=== PATIENT | male | born 1935 | race Caucasian/White ===

== ENCOUNTER 2017-04-15 19:37 | Inpatient (IN) | payer MEDICARE, BC ==
[~2017-04-15] VITALS: Ht 172.7 cm; Wt 81.7 kg
[~2017-04-15 19:37] MED LIST: ACIPHEX20 MG ORAL; ADCIRCA20 MG ORAL; ADVAIR 250-501 EACH INH; ALLOPURINOL300 M1 ORAL; AMLODIPINE BESYL5 MG ORAL; BYSTOLIC20 MG ORAL; CALCITRIOL0.25 MCG PO; CEPHALEXIN500 MG ORAL; EDARBI80 MG ORAL; ELIQUIS2.5 MG PO; HYTRIN10 MG PO; LEVEMIR100 UNIT/1 SUBQ; LIQUACEL 100 LI30 ML PO; LUNESTA2 MG ORAL; NEPHROVITE1 TAB ORAL; PACERONE200 MG ORAL; PAROXETINE HC12.5 MG ORAL; PLAVIX75 MG ORAL; PROSCAR5 MG ORAL; PYRIDOSTIGMINE60 MG ORAL; SYNTHROID50 MCG ORAL; TESTONE CI200 MG/1 M IM; TORSEMIDE10 MG PO; TYLENOL COLD M1 EAC3 PO; TYVASO1.74 MG/2. IH
[2017-04-15] MEDS ORDERED: Ipratropium 0.02% Inh Soln 2.5ml UD HHN ONE (19:45)
[2017-04-15] MEDS ORDERED: Albuterol ud Inhalation HHN ONE (19:45)
[2017-04-15 20:28] LABS: MEAN CORPUSCULAR HEMOGLOBIN 36.5 PG (27.0-31.0); MEAN CORPUSCULAR HGB CONC 33.3 G/DL (32.0-36.0); MEAN CORPUSCULAR VOLUME 110 FL (80-99); MEAN PLATELET VOLUME 7.2 FL (6.5-10.1); PLATELET COUNT 147 K/UL (150-450); RED BLOOD COUNT 3.13 M/UL (4.70-6.10); RED CELL DISTRIBUTION WIDTH 16.8 % (11.6-14.8)
[2017-04-15 20:31] LABS: WHITE BLOOD COUNT 27.2 K/UL (4.8-10.8)
[2017-04-15 20:38] LABS: PROTHROMBIN TIME 10.4 SEC (9.30-11.50)
[2017-04-15 20:43] LABS: ALANINE AMINOTRANSFERASE 18 U/L (3-41); ALBUMIN/GLOBULIN RATIO 1.3 (1.0-2.7); ANION GAP 23 (5-15); ASPARTATE AMINO TRANSFERASE 24 U/L (5-40); CALCIUM 9.3 mg/dL (8.6-10.2); CARBON DIOXIDE 22 mEQ/L (20-30); CHLORIDE 91 mEQ/L (98-107); HEMOLYSIS 15; POTASSIUM 3.3 mEQ/L (3.4-4.9); SODIUM 136 mEQ/L (135-145); TOTAL PROTEIN 6.8 g/dL (6.6-8.7); TROPONIN I < 0.30 ng/mL (<=0.30)
[2017-04-15] MEDS ORDERED: Cefepime HCl 1 GM in D5W 55 ML IVPB ONE (20:45)
[2017-04-15] MEDS ORDERED: metroNIDAZOLE 500mg 100 ML IVPB ONE (20:45)
[2017-04-15] MEDS ORDERED: Vancomycin 1 GM in D5W 275 ML IVPB ONE (20:45)
[2017-04-15] MEDS ORDERED: Cefepime 1gm vial ONE (20:45)
[2017-04-15] MEDS ORDERED: NS 250 ML IVPB ONE (20:45)
[2017-04-15 20:46] LABS: REFLEX LACTIC ACID YES OR NO YES
[2017-04-15] MEDS ORDERED: LIQUACEL LIQUID30 ML PO (21:04)
[2017-04-15] MEDS ORDERED: NOVOLOG100 UNIT/3 SUBQ (21:04)
[2017-04-15] MEDS ORDERED: UPTRAVI200 MCG PO (21:04)
[2017-04-15] MEDS ORDERED: DYMISTA NASAL S23 GM NS (21:04)
[2017-04-15] MEDS ORDERED: ATORVASTATIN CA20 MG ORAL (21:04)
[2017-04-15] MEDS ORDERED: ILEVRO1.7 ML OP (21:04)
[2017-04-15] MEDS ORDERED: STIOLTO RESPIMAT4 GM IH (21:04)
[2017-04-15] MEDS ORDERED: IMODIUM MULTI-1 EACH PO (21:04)
[2017-04-15] MEDS ORDERED: TYLENOL EXTRA500 MG ORAL (21:04)
[2017-04-15] MEDS ORDERED: MEGESTROL ACETA40 MG PO (21:04)
[2017-04-15] MEDS ORDERED: AMLODIPINE BES2.5 MG ORAL (21:04)
[2017-04-15] MEDS ORDERED: NEILMED SINUS1 EAC1 NS (21:04)
[2017-04-15] MEDS ORDERED: LUNESTA3 MG ORAL (21:04)
[2017-04-15] MEDS ORDERED: SYNTHROID75 MCG ORAL (21:04)
[2017-04-15] MEDS ORDERED: CALCITRIOL0.25 MCG PO (21:04)
[2017-04-15] MEDS ORDERED: KLOR-CON20 MEQ ORAL (21:04)
[2017-04-15] MEDS ORDERED: MUCINEX DM ER1 EACH PO (21:04)
[2017-04-15] MEDS ORDERED: ALLOPURINOL300 M1 ORAL (21:04)
[2017-04-15] MEDS ORDERED: Vancomycin 1gm inj IVPB ONE (21:42)
[2017-04-15] MEDS ORDERED: Lidocaine 1% MPF 10mg/ml 5ml INJ ONE (21:45)
[2017-04-15 21:53] LABS: ANISOCYTOSIS 1+; BAND NEUTROPHILS % (MANUAL) 9 % (0-8); LYMPHOCYTES % (MANUAL) 6 % (20-45); NEUTROPHILS % (MANUAL) 81 % (45-75); TOTAL CELLS COUNTED 100
[2017-04-15 21:54] LABS: BASOPHILS % (MANUAL) 0 % (0-2); EOSINOPHILS % (MANUAL) 0 % (0-3); HYPOCHROMASIA 1+; MACROCYTES 2+; PLATELET ESTIMATE DECREASED; PLATELET MORPHOLOGY NORMAL; POLYCHROMASIA 1+
[2017-04-15] MEDS ORDERED: DuoNeb 0.5-3(2.5)mg/3ml neb HHN PRN (22:15)
[2017-04-15] MEDS ORDERED: Miralax 17gm pkt ORAL PRN (22:15)
[2017-04-15 22:30] VITALS: BP 112/59
[2017-04-15 22:44] VITALS: BP 80/39
--- NOTE | 2017-04-15 22:46 | Emergency Room Report ---
History of Present Illness General Chief Complaint: Dyspnea/Respdistress Source: Patient, Family Member, EMS Present Illness HPI The patient presents with shortness of breath and hypotension. He has a history of dialysis - peritoneal and hemodialysis. He also has a history of pulmonary hypertension. Paramedics transported the patient here without treatment. His blood pressure is 84 the field. He was recently discharged from [facility] after having a staph infection in his umbilicus. He stopped vancomycin after dialysis one week ago. The patient denies any cough, chest pain. The patient rarely produces urine and denies dysuria. He denies abdominal pain. No rashes. No rigors or chills. says decreased appetite and "going down hill" recently with recent increase in weakness. H/O myasthenia gravis - though states this has been stable. Recent bone marrow at [facility]. Allergies: Coded Allergies: GERTRUDIS INHIBITORS (Unverified Allergy, Unknown, 04/15/17) LEVOFLOXACIN (Unverified Allergy, Unknown, 04/15/17) PENICILLINS (Verified Allergy, Unknown, 04/15/17) Patient History Past Medical History: see triage record Past Surgical History: pacemaker Social History: Denies: smoking Social History Narrative Reviewed Nursing Documentation: PMH: Agreed, PSxH: Agreed Nursing Documentation-PMH Past Medical History: No History, Except For Hx Cardiac Problems: Yes - ESRD , CHF, A-FLUTTER, SPINAL STENOSIS Hx Hypertension: Yes - PULMONARY HYPERTENSION , BPH , CPAP Hx Pacemaker: Yes - dialysis right arm Hx Diabetes: Yes Hx Cancer: No Hx Dialysis: Yes - 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 Hx Neurological Problems: Yes - spinal stenosis Hx Cerebrovascular Accident: Yes - 1996 Hx Seizures: No Review of Systems All Other Systems: negative except mentioned in HPI Physical Exam Vital Signs Date Time Temp Pulse Resp B/P Pulse Ox O2 Delivery O2 Flow Rate FiO2 04/15/17 19:29 96.6 100 24 84/39 98 Nasal Cannula 5.0 04/15/17 19:59 100 Sp02 EP Interpretation: reviewed, abnormal - low as interpreted by me based on FIO2 General Appearance: moderate distress, Chronically Ill Head: normocephalic Eyes: bilateral eye PERRL, bilateral eye normal inspection ENT: moist mucus membranes Neck: supple, no meningismus Respiratory: lungs clear, normal breath sounds, decreased breath sounds, other - pacer and R dialysis cath Cardiovascular #1: no edema, tachycardia Cardiovascular #2: 2+ radial (R), 2+ femoral (R) Gastrointestinal: normal inspection, non tender, no mass, no guarding, no rebound, abnormal bowel sounds - decreased, distended - minimally, other - dialysis catheter, area of umbilical infection without erythema or fluctuance Rectal: heme negative stool Genitourinary: normal inspection Musculoskeletal: back normal, normal range of motion, no calf tenderness Neurologic: alert, oriented x3, sensory intact, motor weakness - diffuse, moves all 4 Psychiatric: depressed affect - occasionally confused Reflexes: 2+ knee (R), 2+ knee (L) Skin: normal inspection, warm/dry Procedures Critical Care Time Critical Care Time Total Critical Care Time: 90 min of bedside evaluation and treatment excludes procedures Procedures: CVP, intubation, EKG Reason for Critical Care: Hypotension, hypoglycemia, sepsis, metabolic acidosis , prevention of end organ injury, severe sepsis, ESRD Course: the patient presented with hypoxia and hypotension. Initial improvement with albuterol and high flow O2. He remained hypotensive and fluid boluses were begun with concern over h/o ESRD. WBC elevated with elevated lactate = severe sepsis. Antibiotics begun. He needed pressors so a central line was started. BP better with levophed, however, due to weakness and confusion, patient was intubated. After intubation, several repeat evaluations were needed to improve sedation. Several discussions with and attempts to contact PMD. Versed drip not available therefore sedated with propofol. Patient admitted to ICU. Consultations: family, critical care MD, nursing, RT, pharmacy Alternative history: EMS, Result: Patient was improved but critical Performed by: Dr. Payan Central Line Central Line : Consent: Verbal Central Line Lumen: triple Maximal Sterile Barrier Tech: yes cap, yes mask, yes sterile gown, yes sterile gloves, yes large sterile sheet, yes hand hygiene, yes chlorhexidine prep Central Line Postion: femoral (R) Anesthesia: Lidocaine cc's of anesthesia: 6 Complications: none Central Line Post Position: sutured, good blood return Attempts: Other - 2 Patient Tolerated: Well Complications: None Progress ultrasound needed. EBL = 12 cc due to blood draw for lactate Intubation Intubation : Consent: Verbal Intubation Method: orotracheal Tube Size (cm): 7.5 Medications: Etomidate Breath Sounds after Intubation: equal - 23 cm Intubation Complications: no complications Post Intubation Xray: Yes Attempts: One Patient Tolerated: Well Complications: None Medical Decision Making Diagnostic Impression: Primary Impression: Severe sepsis Additional Impressions: ESRD (end stage renal disease) on dialysis Hypoxia H/O pulmonary hypertension ER Course Dialysis patient presents with dyspnea and hypotension. DDx: sepsis, chf, AMI, pneumonia, pulmonary hypertension, PE amongst others. Patient needs emergent evaluation and treatment with high flow O2, guarded fluid resuscitation. EKG, CXR, labs with BC and lactate ordered. Initially BIPAP ordered, but patient not tolerate mask. Albuterol ordered. Initial labs with leukocytosis and elevated lactate. Evidence of renal failure (h/o same). .EKG a fib BBB. CXR with R effusion, no evidence of fluid overload. Patient appears to be septic. Antibiotics are begun. Also fluids are initiated as he still is hypertensive. Consider source - SBP, UTI, pneumonia, bacteremia from line. Abd wound not appear source. His blood pressure remains low and after getting fluid bolus a. A central line is indicated. Discussed with and patient. CVP was begun. Repeat lactate drawn. The patient was started on Levophed. BP improved on levophed. Still with variable consciousness. Discussed intubation with patient and . (H/O myasthenia gravis) Intubated. Versed several doses given. Versed drip not available. Propofol drip started and bolus given by me. BP holding. Titrating propofol. Patient admitted ICU Dr. Craven. Laboratory Tests Test 04/15/17 19:33 04/15/17 19:47 04/15/17 22:33 Arterial Blood pH 7.456 (7.350-7.450) Arterial Blood Partial Pressure CO2 27.5 mmHg (35.0-45.0) L Arterial Blood Partial Pressure O2 181.5 mmHg (75.0-100.0) H Arterial Blood HCO3 18.9 mmol/L (22.0-26.0) L Arterial Blood Oxygen Saturation 98.7 % (92.0-98.0) H Arterial Blood Base Excess -4.1 Mike Test Positive White Blood Count 27.2 K/UL (4.8-10.8) *H Red Blood Count 3.13 M/UL (4.70-6.10) L Hemoglobin 11.4 G/DL (14.2-18.0) L Hematocrit 34.3 % (42.0-52.0) L Mean Corpuscular Volume 110 FL (80-99) H Mean Corpuscular Hemoglobin 36.5 PG (27.0-31.0) H Mean Corpuscular Hemoglobin Concent 33.3 G/DL (32.0-36.0) Red Cell Distribution Width 16.8 % (11.6-14.8) H Platelet Count 147 K/UL (150-450) L Mean Platelet Volume 7.2 FL (6.5-10.1) Neutrophils (%) (Auto) % (45.0-75.0) Lymphocytes (%) (Auto) % (20.0-45.0) Monocytes (%) (Auto) % (1.0-10.0) Eosinophils (%) (Auto) % (0.0-3.0) Basophils (%) (Auto) % (0.0-2.0) Differential Total Cells Counted 100 Neutrophils % (Manual) 81 % (45-75) H Lymphocytes % (Manual) 6 % (20-45) L Monocytes % (Manual) 4 % (1-10) Eosinophils % (Manual) 0 % (0-3) Basophils % (Manual) 0 % (0-2) Band Neutrophils 9 % (0-8) H Platelet Estimate Decreased L Platelet Morphology Normal Polychromasia 1+ Hypochromasia 1+ Anisocytosis 1+ Macrocytosis 2+ Prothrombin Time 10.4 SEC (9.30-11.50) Prothrombin Time INR 1.0 (0.9-1.1) PTT 24 SEC (23-33) Sodium Level 136 mEQ/L (135-145) Potassium Level 3.3 mEQ/L (3.4-4.9) L Chloride Level 91 mEQ/L (98-107) L Carbon Dioxide Level 22 mEQ/L (20-30) Anion Gap 23 (5-15) H Blood Urea Nitrogen 34 mg/dL (7-23) H Creatinine 7.0 mg/dL (0.7-1.2) H Estimate Glomerular Filtration Rate mL/min (>60) Glucose Level 249 mg/dL (74-106) H Lactic Acid Level 4.00 mmol/L (0.66-2.22) H 2.30 mmol/L (0.66-2.22) H Calcium Level 9.3 mg/dL (8.6-10.2) Total Bilirubin 0.4 mg/dL (0.0-1.2) Aspartate Amino Transferase (AST) 24 U/L (5-40) Alanine Aminotransferase (ALT) 18 U/L (3-41) Alkaline Phosphatase 202 U/L (40-129) H Total Creatine Kinase 60 U/L (38-174) Troponin I < 0.30 ng/mL (<=0.30) Pro-B-Type Natriuretic Peptide 86790 pg/mL (0-450) H Total Protein 6.8 g/dL (6.6-8.7) Albumin 3.9 g/dL (3.5-5.2) Globulin 2.9 g/dL Albumin/Globulin Ratio 1.3 (1.0-2.7) Triglycerides Level 169 mg/dL (< 150) H EKG Diagnostic Results Rate: tachycardiac Rhythm: other - a fib ST Segments: no acute changes - RBBB Rhythm Strip Diag. Results EP Interpretation: yes Rhythm: no PVC's, no ectopy, other - a fib Chest X-Ray Diagnostic Results Chest X-Ray Diagnostic Results #1: Chest X-Ray Ordered: Yes # of Views/Limited/Complete: 1 View Indication: Shortness of Breath EP Interpretation: Yes Interpretation: no consolidation, no pneumothorax, other - R effusion, cardiomegally Impression: Other Interpreting ER Provider: Electronically signed by Tristan Payan MD Chest X-Ray Diagnostic Results #2: Chest X-Ray Ordered: Yes # of Views/Limited/Complete: 1 View Indication: Other EP Interpretation: Yes Interpretation: no pneumothorax, other - ET slightly high (acceptable), no infiltrate Impression: Other Interpreting ER Provider: Signed Tristan Payan MD Last Vital Signs Date Time Temp Pulse Resp B/P Pulse Ox O2 Delivery O2 Flow Rate FiO2 04/16/17 02:03 105/51 04/16/17 02:00 106 20 98 Mechanical Ventilator 30 04/16/17 01:17 96.6 3.0 Status: improved Disposition: ADMITTED INPATIENT Condition: Critical Referrals: NON PHYSICIAN (PCP) Tristan Payan M.D. Apr 15, 2017 22:46
[2017-04-15] MEDS ORDERED: Levophed 4mg/4mL Inj IV ONE (22:48)
[2017-04-15] MEDS ORDERED: Etomidate 40mg/20ml Inj IV ONE (23:00)
[2017-04-15] MEDS ORDERED: Midazolam 2mg/2ml Inj IVP ONE ×3 (23:00→23:30)
[2017-04-15] MEDS ORDERED: Midazolam for drip 50 MG in D5W 90 ML IV SCH (23:00)
[2017-04-15] MEDS ORDERED: Vancomycin 1 GM in D5W 275 ML IV SCH (23:45)
[2017-04-16] VITALS (58 sets, daily range): BP systolic 85–139; BP diastolic 37–74
[2017-04-16] MEDS ORDERED: Midazolam 5mg/5ml 50 MG in D5W 50 ML IV SCH (00:10)
[2017-04-16] MEDS ORDERED: Vancomycin 500mg/D5W 110ml IVPB ONE ×2 (00:15)
[2017-04-16] MEDS ORDERED: Amikacin 500mg/2mL Inj ONE ×2 (00:37→01:48)
[2017-04-16 00:49] LABS: ABG ALLEN TEST POSITIVE; ABG BASE EXCESS -4.1; ABG PCO2 27.5 mmHg (35.0-45.0)
[2017-04-16] MEDS ORDERED: Amikacin 700 MG in NS 110 ML IV ONE (02:00)
[2017-04-16 05:35] LABS: MEAN CORPUSCULAR HEMOGLOBIN 35.6 PG (27.0-31.0); MEAN CORPUSCULAR HGB CONC 33.2 G/DL (32.0-36.0); MEAN CORPUSCULAR VOLUME 107 FL (80-99); MEAN PLATELET VOLUME 6.8 FL (6.5-10.1); PLATELET COUNT 128 K/UL (150-450); RED BLOOD COUNT 2.48 M/UL (4.70-6.10); RED CELL DISTRIBUTION WIDTH 16.3 % (11.6-14.8)
[2017-04-16 05:55] LABS: ALANINE AMINOTRANSFERASE 13 U/L (3-41); ALBUMIN/GLOBULIN RATIO 1.4 (1.0-2.7); ANION GAP 16 (5-15); ASPARTATE AMINO TRANSFERASE 17 U/L (5-40); BILIRUBIN,DIRECT 0.2 mg/dL (0.1-0.3); CALCIUM 8.2 mg/dL (8.6-10.2); CARBON DIOXIDE 22 mEQ/L (20-30); CHLORIDE 92 mEQ/L (98-107); CREATININE 7.3 mg/dL (0.7-1.2); HEMOLYSIS 3; POTASSIUM 3.1 mEQ/L (3.4-4.9); SODIUM 130 mEQ/L (135-145); TOTAL PROTEIN 5.1 g/dL (6.6-8.7)
[2017-04-16] MEDS: Aztreonam Inj 0.25 GM in D5W 55 ML IVPB SCH ×2 (05:59→14:47)
[2017-04-16] MEDS ORDERED: Amikacin Rx to dose MISC PRN (06:00)
[2017-04-16] MEDS ORDERED: Aztreonam Inj 1 GM in NS 50 ML IVPB SCH (06:00)
[2017-04-16 06:10] LABS: WHITE BLOOD COUNT 27.4 K/UL (4.8-10.8)
[2017-04-16 06:13] LABS: REFLEX LACTIC ACID YES OR NO YES
[2017-04-16] MEDS: Morphine Sulfate 4mg/ml Inj IVP PRN ×2 (06:46→19:44)
[2017-04-16] MEDS ORDERED: Eliquis 2.5mg tablet ORAL SCH (09:00)
[2017-04-16] MEDS ORDERED: Amiodarone 200mg tab ORAL SCH (09:00)
--- NOTE | 2017-04-16 09:09 | History and Physical ---
History of Present Illness General Date patient seen: Apr 16, 2017 Reason for Hospitalization: Dyspnea/Respdistress Present Illness HPI -82 year old male with a history of dialysis - peritoneal and hemodialysis , myasthenia gravis, recent hospitalization at [facility] for Sepsis, presented to ER by paramedics with shortness of breath and hypotension. His blood pressure is 84 the field. The patient denies any cough, chest pain. The patient rarely produces urine and denies dysuria. He denies abdominal pain. No rashes. No rigors or chills. says that he hs decreased appetite and "going down hill" recently with recent increase in weakness. Pt was in respiratory failure in ER and needed to be intubated. Currently pt is awake on the ventilator and looks comfortable. He is on levophed drip. Allergies: Coded Allergies: GERTRUDIS INHIBITORS (Unverified Allergy, Unknown, 04/15/17) LEVOFLOXACIN (Unverified Allergy, Unknown, 04/15/17) PENICILLINS (Verified Allergy, Unknown, 04/15/17) Medication History Scheduled Acetaminophen* (Tylenol Extra Strength*), 500 MG ORAL QHS, (Reported) Allopurinol* (Allopurinol*), 300 MG ORAL DAILY, (Reported) Allopurinol* (Allopurinol*), 300 MG ORAL DAILY, (Reported) Amino Acids/Protein Hydrolys (Liquacel 100 Liquid Packet), 30 ML PO DAILY, ( Reported) Amiodarone Hcl* (Pacerone*), 200 MG ORAL EVERY 12 HOURS, (Reported) Amlodipine Besylate* (Amlodipine Besylate*), 5 MG ORAL DAILY, (Reported) Amlodipine Besylate* (Amlodipine Besylate*), 2.5 MG ORAL DAILY, (Reported) Atorvastatin Calcium* (Atorvastatin Calcium*), 10 MG ORAL BEDTIME, (Reported) Azilsartan Medoxomil (Edarbi), 80 MG ORAL DAILY, (Reported) Calcitriol (Calcitriol), 0.25 MCG PO DAILY, (Reported) Cephalexin* (Keflex*), 500 MG ORAL EVERY 6 HOURS Clopidogrel Bisulfate* (Plavix*), 75 MG ORAL DAILY, (Reported) Finasteride* (Proscar*), 5 MG ORAL DAILY, (Reported) Fluticasone/Salmeterol (Advair 250-50 Diskus), 2 PUFF INH EVERY 12 HOURS, ( Reported) Insulin Detemir (Levemir), 0 SUBQ BEDTIME, (Reported) Levothyroxine Sodium (Synthroid), 50 MCG ORAL DAILY, (Reported) Levothyroxine Sodium* (Synthroid*), 50 MCG ORAL DAILY, (Reported) Loperamide Hcl/Simethicone (Imodium Multi-Symptom Rel Cplt), 1 EACH PO PRN, ( Reported) Nebivolol Hcl (Bystolic), 20 MG ORAL DAILY, (Reported) Paroxetine Hcl* (Paroxetine Hcl*), 10 MG ORAL DAILY, (Reported) Potassium Chloride (Klor-Con), 20 MEQ ORAL DAILY, (Reported) Pyridostigmine [place]* (Mestinon*), 30 MG ORAL BID, (Reported) Rabeprazole Sodium (Aciphex), 20 MG ORAL DAILY, (Reported) Tadalafil (Adcirca), 20 MG ORAL PRN, (Reported) Tadalafil (Adcirca), 20 MG ORAL TWICE A DAY, (Reported) Terazosin HCl (Terazosin HCl), 10 MG PO QHS, (Reported) Torsemide* (Demadex*), 50 MG PO DAILY, (Reported) Treprostinil (Tyvaso), 1.74 MG IH TID, (Reported) Vitamin B Cmplx/Vit C/Folic AC (Nephro-Calli Tablet), 1 TAB ORAL DAILY, (Reported ) Scheduled PRN Eszopiclone (Lunesta), 2 MG ORAL BEDTIME PRN for Insomnia, (Reported) Eszopiclone (Lunesta), 3 MG ORAL BEDTIME PRN for Insomnia, (Reported) Miscellaneous Medications Amino AC/Protein Hydr/Whey Pro (Liquacel Liquid Protein Packet), 30 ML PO, ( Reported) Apixaban (Eliquis), 2.5 MG PO, (Reported) Azelastine/Fluticasone (Dymista Nasal [place]), Unknown Dose NS, (Reported) Calcitriol (Calcitriol), 0.25 MCG PO, (Reported) D-Methorphan/Pe/Acetaminophen (Tylenol Cold Multi-Symp Caplet), 1 EACH PO, ( Reported) Guaifenesin/Dextromethorphan (Mucinex Dm Er 1,200-60 Mg Tab), 1 EACH PO, ( Reported) Insulin Aspart* (Novolog*), 0 SUBQ, (Reported) Megestrol Acetate (Megestrol Acetate), Unknown Dose PO, (Reported) Nepafenac (Ilevro), 1.7 ML OP, (Reported) Selexipag (Uptravi), 200 MCG PO, (Reported) Sodium Chloride/Sodium Bicarb (Neilmed Sinus Rinse Kit Refill), 1 EACH NS, ( Reported) Testosterone Cypionate (Testone Cik), 200 MG IM, (Reported) Tiotropium Br/Olodaterol HCl (Stiolto Respimat Inhal [place]), 4 GM IH, (Reported) Patient History Healthcare decision maker aristides wilkinson - Resuscitation status Full Code Advanced Directive on File No Past Medical/Surgical History Past Medical/Surgical History: (1) Myasthenia gravis (2) ESRD (end stage renal disease) on dialysis (3) H/O pulmonary hypertension Review of Systems All Other Systems: negative except mentioned in HPI Physical Exam General Appearance: WD/WN Lines, tubes and drains: dialysis access Neck: non-tender, normal alignment Respiratory/Chest: chest wall non-tender, lungs clear Cardiovascular/Chest: normal peripheral pulses, normal rate Abdomen: normal bowel sounds, non tender Genitourinary/Rectal: normal genital exam, normal rectal exam Extremities: normal range of motion, non-tender Last 24 Hour Vital Signs Date Time Temp Pulse Resp B/P Pulse Ox O2 Delivery O2 Flow Rate FiO2 04/16/17 07:01 85 23 30 04/16/17 07:00 86 21 120/49 100 Mechanical Ventilator 30 04/16/17 07:00 120/49 04/16/17 06:45 87 22 125/68 99 Mechanical Ventilator 30 04/16/17 06:30 93 18 114/53 99 Mechanical Ventilator 04/16/17 06:15 89 18 99/50 99 Mechanical Ventilator 04/16/17 06:00 86 19 101/43 100 Mechanical Ventilator 04/16/17 05:59 99/50 04/16/17 05:45 90 19 113/47 100 Mechanical Ventilator 04/16/17 05:32 85 19 30 04/16/17 05:30 88 20 99/46 100 Mechanical Ventilator 04/16/17 05:15 90 19 111/47 100 Mechanical Ventilator 30 04/16/17 05:00 91 21 89/42 99 Mechanical Ventilator 30 04/16/17 05:00 111/51 04/16/17 04:45 95 21 111/51 99 Mechanical Ventilator 30 04/16/17 04:30 94 19 111/51 98 Mechanical Ventilator 30 04/16/17 04:15 94 19 109/51 98 Mechanical Ventilator 30 04/16/17 04:00 30.0 04/16/17 04:00 109/48 04/16/17 04:00 96 04/16/17 04:00 99.3 96 19 109/48 98 Mechanical Ventilator 30 04/16/17 03:45 98 20 111/41 99 Mechanical Ventilator 30 04/16/17 03:37 101 25 30 04/16/17 03:30 101 21 112/50 99 Mechanical Ventilator 30 04/16/17 03:15 103 19 112/50 99 Mechanical Ventilator 30 04/16/17 03:00 104 21 109/64 97 Mechanical Ventilator 30 04/16/17 03:00 109/64 04/16/17 02:45 103 19 108/47 98 Mechanical Ventilator 30 04/16/17 02:30 106 20 106/46 99 Mechanical Ventilator 30 04/16/17 02:15 106 20 108/45 99 Mechanical Ventilator 30 04/16/17 02:03 105/51 04/16/17 02:00 106 20 109/41 98 Mechanical Ventilator 30 04/16/17 01:45 106 22 113/62 98 Mechanical Ventilator 30 04/16/17 01:30 108 22 86/38 98 Mechanical Ventilator 30 04/16/17 01:18 107 04/16/17 01:17 96.6 114 16 109/53 99 Nasal Cannula 3.0 30 04/16/17 01:15 106 22 86/37 98 Mechanical Ventilator 30 04/16/17 01:01 30 04/16/17 01:00 30.0 04/16/17 01:00 111/48 04/16/17 01:00 99.0 106 22 111/48 98 Mechanical Ventilator 30 04/16/17 00:44 16 04/16/17 00:36 118 32 60 04/16/17 00:15 96.6 114 16 109/53 99 Nasal Cannula 3.0 60 04/16/17 00:10 24 04/16/17 00:00 25 04/15/17 23:54 25 04/15/17 23:24 129 25 60 04/15/17 23:05 80/39 04/15/17 22:44 96.6 105 18 80/39 99 Nasal Cannula 3.0 100 04/15/17 22:30 96.6 25 18 112/59 99 Nasal Cannula 3.0 100 04/15/17 20:10 89 18 99 Nasal Cannula 3.0 04/15/17 19:59 85 18 97 Non-Rebreather 100 04/15/17 19:51 85 18 Non-Rebreather 04/15/17 19:45 100 24 Nasal Cannula 5.0 04/15/17 19:29 96.6 100 24 84/39 98 Nasal Cannula 5.0 Intake and Output 04/15/17 04/16/17 19:00 07:00 Intake Total 242.5 ml Output Total 0 ml Balance 242.5 ml Intake Oral 0 ml IV Total 242.5 ml Output Urine Total 0 ml Laboratory Tests Test 04/15/17 19:33 04/15/17 19:47 04/15/17 22:33 04/16/17 05:10 Arterial Blood pH 7.456 (7.350-7.450) Arterial Blood Partial Pressure CO2 27.5 mmHg (35.0-45.0) L Arterial Blood Partial Pressure O2 181.5 mmHg (75.0-100.0) H Arterial Blood HCO3 18.9 mmol/L (22.0-26.0) L Arterial Blood Oxygen Saturation 98.7 % (92.0-98.0) H Arterial Blood Base Excess -4.1 Mike Test Positive White Blood Count 27.2 K/UL (4.8-10.8) *H 27.4 K/UL (4.8-10.8) *H Red Blood Count 3.13 M/UL (4.70-6.10) L 2.48 M/UL (4.70-6.10) L Hemoglobin 11.4 G/DL (14.2-18.0) L 8.8 G/DL (14.2-18.0) L Hematocrit 34.3 % (42.0-52.0) L 26.6 % (42.0-52.0) L Mean Corpuscular Volume 110 FL (80-99) H 107 FL (80-99) H Mean Corpuscular Hemoglobin 36.5 PG (27.0-31.0) H 35.6 PG (27.0-31.0) H Mean Corpuscular Hemoglobin Concent 33.3 G/DL (32.0-36.0) 33.2 G/DL (32.0-36.0) Red Cell Distribution Width 16.8 % (11.6-14.8) H 16.3 % (11.6-14.8) H Platelet Count 147 K/UL (150-450) L 128 K/UL (150-450) L Mean Platelet Volume 7.2 FL (6.5-10.1) 6.8 FL (6.5-10.1) Neutrophils (%) (Auto) % (45.0-75.0) % (45.0-75.0) Lymphocytes (%) (Auto) % (20.0-45.0) % (20.0-45.0) Monocytes (%) (Auto) % (1.0-10.0) % (1.0-10.0) Eosinophils (%) (Auto) % (0.0-3.0) % (0.0-3.0) Basophils (%) (Auto) % (0.0-2.0) % (0.0-2.0) Differential Total Cells Counted 100 Neutrophils % (Manual) 81 % (45-75) H Pending Lymphocytes % (Manual) 6 % (20-45) L Pending Monocytes % (Manual) 4 % (1-10) Eosinophils % (Manual) 0 % (0-3) Basophils % (Manual) 0 % (0-2) Band Neutrophils 9 % (0-8) H Platelet Estimate Decreased L Pending Platelet Morphology Normal Pending Polychromasia 1+ Hypochromasia 1+ Anisocytosis 1+ Macrocytosis 2+ Prothrombin Time 10.4 SEC (9.30-11.50) Prothromb Time International Ratio 1.0 (0.9-1.1) Activated Partial Thromboplast Time 24 SEC (23-33) Sodium Level 136 mEQ/L (135-145) 130 mEQ/L (135-145) L Potassium Level 3.3 mEQ/L (3.4-4.9) L 3.1 mEQ/L (3.4-4.9) L Chloride Level 91 mEQ/L (98-107) L 92 mEQ/L (98-107) L Carbon Dioxide Level 22 mEQ/L (20-30) 22 mEQ/L (20-30) Anion Gap 23 (5-15) H 16 (5-15) H Blood Urea Nitrogen 34 mg/dL (7-23) H 38 mg/dL (7-23) H Creatinine 7.0 mg/dL (0.7-1.2) H 7.3 mg/dL (0.7-1.2) H Estimat Glomerular Filtration Rate mL/min (>60) mL/min (>60) Glucose Level 249 mg/dL (74-106) H 326 mg/dL (74-106) H Lactic Acid Level 4.00 mmol/L (0.66-2.22) H 2.30 mmol/L (0.66-2.22) H 2.00 mmol/L (0.66-2.22) Calcium Level 9.3 mg/dL (8.6-10.2) 8.2 mg/dL (8.6-10.2) L Total Bilirubin 0.4 mg/dL (0.0-1.2) 0.3 mg/dL (0.0-1.2) Aspartate Amino Transf (AST/SGOT) 24 U/L (5-40) 17 U/L (5-40) Alanine Aminotransferase (ALT/SGPT) 18 U/L (3-41) 13 U/L (3-41) Alkaline Phosphatase 202 U/L (40-129) H 138 U/L (40-129) H Total Creatine Kinase 60 U/L (38-174) Troponin I < 0.30 ng/mL (<=0.30) Pro-B-Type Natriuretic Peptide 30223 pg/mL (0-450) H Total Protein 6.8 g/dL (6.6-8.7) 5.1 g/dL (6.6-8.7) L Albumin 3.9 g/dL (3.5-5.2) 3.0 g/dL (3.5-5.2) L Globulin 2.9 g/dL 2.1 g/dL Albumin/Globulin Ratio 1.3 (1.0-2.7) 1.4 (1.0-2.7) Triglycerides Level 169 mg/dL (< 150) H Direct Bilirubin 0.2 mg/dL (0.1-0.3) Height (Feet): 5 Height (Inches): 8.00 Weight (Pounds): 139 Medications Current Medications Medications (Trade) Dose Ordered Sig/Rossana Route PRN Reason Start Time Stop Time Status Last Admin Dose Admin Acetaminophen (Tylenol) 650 mg Q4H PRN ORAL fever 04/15/17 22:15 05/15/17 22:14 Albuterol/ Ipratropium (DuoNeb 0.5-3(2.5)mg/3ml) 3 ml EVERY 4 HOURS PRN HHN Shortness of Breath 04/15/17 22:15 04/20/17 22:14 Allopurinol (Zyloprim) 100 mg DAILY ORAL 04/16/17 09:00 05/16/17 08:59 Amikacin Protocol (Amikacin pharmacy to dose) 1 ea DAILY PRN MISC PHARM 04/16/17 06:00 05/16/17 05:59 Amiodarone HCl (Cordarone) 200 mg EVERY 12 HOURS ORAL 04/16/17 09:00 05/16/17 08:59 Apixaban (Eliquis) 2.5 mg EVERY 12 HOURS ORAL 04/16/17 09:00 05/16/17 08:59 Aztreonam/Dextrose (Azactam/D5W) 55 ml @ 110 mls/hr Q8HR IVPB 04/16/17 06:00 04/23/17 05:59 04/16/17 05:59 Dextrose (Dextrose 50%) STAT PRN IV Hypoglycemia 04/16/17 07:35 05/16/17 07:34 Insulin Aspart (NovoLOG) EVERY 6 HOURS SUBQ 04/16/17 12:00 05/16/17 11:59 Levothyroxine Sodium (Synthroid) 50 mcg DAILY@0630 ORAL 04/16/17 06:30 05/16/17 06:29 04/16/17 05:59 Morphine Sulfate (Morphine Sulfate) 4 mg EVERY 4 HOURS PRN IVP Severe Pain (Pain Scale 7-10) 04/15/17 22:15 04/22/17 22:14 04/16/17 06:46 Norepinephrine Bitartrate/ Dextrose (Levophed/D5W) 254 ml @ 0 mls/hr Q24H IV 04/15/17 22:15 05/15/17 22:14 04/15/17 23:05 Ondansetron HCl 4 mg 4 mg Q6H PRN IVP Nausea & Vomiting 04/15/17 22:15 05/15/17 22:14 Polyethylene Glycol (Miralax) 17 gm DAILYPRN PRN ORAL Constipation 04/15/17 22:15 05/15/17 22:14 Vancomycin HCl 1 ea 1 ea DAILY MISC 04/16/17 09:00 05/16/17 08:59 Assessment/Plan Problem List: (1) Acute respiratory failure ICD Codes: J96.00 - Acute respiratory failure, unspecified whether with hypoxia or hypercapnia SNOMED: 49947031 (2) Septic shock ICD Codes: A41.9 - Sepsis, unspecified organism; R65.21 - Severe sepsis with septic shock SNOMED: 73578228 (3) ESRD (end stage renal disease) on dialysis ICD Codes: N18.6 - End stage renal disease; Z99.2 - Dependence on renal dialysis SNOMED: 223517189, 47748265 (4) H/O pulmonary hypertension ICD Codes: Z86.79 - Personal history of other diseases of the circulatory system SNOMED: 086262216 (5) Myasthenia gravis ICD Codes: G70.00 - Myasthenia gravis without (acute) exacerbation SNOMED: 27915183 Respiratory: monitor respiratory rate, adjust FIO2, CXR Cardiac: continue pressors - on levophed, continue to monitor HR/BP Renal: F/U I&O, keep IV fluid Infectious Disease: check cultures, continue antibiotics Gastrointestinal: hold feedings Endocrine: monitor blood sugar Hematologic: monitor H/H, transfuse if hgb<8.5 Neurologic: PRN Ativan, PRN Morphine, keep patient comfortable Affect: PRN ativan Notes Reviewed: user experience researcher, cardio Discussed with: nurses, consultants, case technician QUYNH CARDONA Apr 16, 2017 09:09
[2017-04-16] MEDS: Allopurinol 100mg Tab ORAL SCH (09:14)
[2017-04-16 09:25] LABS: ABG ALLEN TEST POSITIVE; ABG BASE EXCESS -3.3
[2017-04-16 09:47] LABS: BAND NEUTROPHILS % (MANUAL) 2 % (0-8); LYMPHOCYTES % (MANUAL) 6 % (20-45); NEUTROPHILS % (MANUAL) 87 % (45-75); NUCLEATED RED BLOOD CELLS 1 /100 WBC; TOTAL CELLS COUNTED 100
[2017-04-16 09:48] LABS: BASOPHILS % (MANUAL) 0 % (0-2); EOSINOPHILS % (MANUAL) 0 % (0-3); MACROCYTES 1+; MICROCYTES 1+; PLATELET ESTIMATE DECREASED; PLATELET MORPHOLOGY NORMAL
[2017-04-16 09:49] LABS: ANISOCYTOSIS 2+; HYPOCHROMASIA 1+
[2017-04-16] MEDS ORDERED: Tubing IV Secondary IV ONE (10:26)
[2017-04-16] MEDS ORDERED: NS 275ml ONE (10:26)
--- NOTE | 2017-04-16 10:35 | Cardiology Progress Note ---
Assessment/Plan Assessment/Plan septic shock met acidosis hypotension paf his opf ppi MG hx S/p I and D infra umbilcal superficial MSSA abscess. CHF, PHT. 90's rvd an hypokinesis ESRD Anemia. MDS? Illness of past 2 to 3 months may NOT be under dialysis, rather smoldering abscess. full note dicated [id number] Objective Last 24 Hour Vital Signs Date Time Temp Pulse Resp B/P Pulse Ox O2 Delivery O2 Flow Rate FiO2 04/16/17 09:01 90 16 30 04/16/17 08:00 30.0 04/16/17 08:00 88 04/16/17 07:01 85 23 30 04/16/17 07:00 86 21 120/49 100 Mechanical Ventilator 30 04/16/17 07:00 120/49 04/16/17 06:45 87 22 125/68 99 Mechanical Ventilator 30 04/16/17 06:30 93 18 114/53 99 Mechanical Ventilator 30 04/16/17 06:15 89 18 99/50 99 Mechanical Ventilator 30 04/16/17 06:00 86 19 101/43 100 Mechanical Ventilator 30 04/16/17 05:59 99/50 04/16/17 05:45 90 19 113/47 100 Mechanical Ventilator 30 04/16/17 05:32 85 19 30 04/16/17 05:30 88 20 99/46 100 Mechanical Ventilator 30 04/16/17 05:15 90 19 111/47 100 Mechanical Ventilator 30 04/16/17 05:00 91 21 89/42 99 Mechanical Ventilator 30 04/16/17 05:00 111/51 04/16/17 04:45 95 21 111/51 99 Mechanical Ventilator 30 04/16/17 04:30 94 19 111/51 98 Mechanical Ventilator 30 04/16/17 04:15 94 19 109/51 98 Mechanical Ventilator 30 04/16/17 04:00 30.0 04/16/17 04:00 109/48 04/16/17 04:00 96 04/16/17 04:00 99.3 96 19 109/48 98 Mechanical Ventilator 30 04/16/17 03:45 98 20 111/41 99 Mechanical Ventilator 30 04/16/17 03:37 101 25 30 04/16/17 03:30 101 21 112/50 99 Mechanical Ventilator 30 04/16/17 03:15 103 19 112/50 99 Mechanical Ventilator 30 04/16/17 03:00 104 21 109/64 97 Mechanical Ventilator 30 04/16/17 03:00 109/64 04/16/17 02:45 103 19 108/47 98 Mechanical Ventilator 30 04/16/17 02:30 106 20 106/46 99 Mechanical Ventilator 30 04/16/17 02:15 106 20 108/45 99 Mechanical Ventilator 30 04/16/17 02:03 105/51 04/16/17 02:00 106 20 109/41 98 Mechanical Ventilator 30 04/16/17 01:45 106 22 113/62 98 Mechanical Ventilator 30 04/16/17 01:30 108 22 86/38 98 Mechanical Ventilator 30 04/16/17 01:18 107 04/16/17 01:17 96.6 114 16 109/53 99 Nasal Cannula 3.0 30 04/16/17 01:15 106 22 86/37 98 Mechanical Ventilator 30 04/16/17 01:01 30 04/16/17 01:00 30.0 04/16/17 01:00 111/48 04/16/17 01:00 99.0 106 22 111/48 98 Mechanical Ventilator 30 04/16/17 00:44 16 04/16/17 00:36 118 32 60 04/16/17 00:15 96.6 114 16 109/53 99 Nasal Cannula 3.0 60 04/16/17 00:10 24 04/16/17 00:00 25 04/15/17 23:54 25 04/15/17 23:24 129 25 60 04/15/17 23:05 80/39 04/15/17 22:44 96.6 105 18 80/39 99 Nasal Cannula 3.0 100 04/15/17 22:30 96.6 25 18 112/59 99 Nasal Cannula 3.0 100 04/15/17 20:10 89 18 99 Nasal Cannula 3.0 04/15/17 19:59 85 18 97 Non-Rebreather 100 04/15/17 19:51 85 18 Non-Rebreather 04/15/17 19:45 100 24 Nasal Cannula 5.0 04/15/17 19:29 96.6 100 24 84/39 98 Nasal Cannula 5.0 Intake and Output 04/15/17 04/16/17 19:00 07:00 Intake Total 242.5 ml Output Total 0 ml Balance 242.5 ml Intake Oral 0 ml IV Total 242.5 ml Output Urine Total 0 ml Laboratory Tests Test 04/15/17 19:33 04/15/17 19:47 04/15/17 22:33 04/16/17 05:10 Arterial Blood pH 7.456 (7.350-7.450) Arterial Blood Partial Pressure CO2 27.5 mmHg (35.0-45.0) L Arterial Blood Partial Pressure O2 181.5 mmHg (75.0-100.0) H Arterial Blood HCO3 18.9 mmol/L (22.0-26.0) L Arterial Blood Oxygen Saturation 98.7 % (92.0-98.0) H Arterial Blood Base Excess -4.1 Mike Test Positive White Blood Count 27.2 K/UL (4.8-10.8) *H 27.4 K/UL (4.8-10.8) *H Red Blood Count 3.13 M/UL (4.70-6.10) L 2.48 M/UL (4.70-6.10) L Hemoglobin 11.4 G/DL (14.2-18.0) L 8.8 G/DL (14.2-18.0) L Hematocrit 34.3 % (42.0-52.0) L 26.6 % (42.0-52.0) L Mean Corpuscular Volume 110 FL (80-99) H 107 FL (80-99) H Mean Corpuscular Hemoglobin 36.5 PG (27.0-31.0) H 35.6 PG (27.0-31.0) H Mean Corpuscular Hemoglobin Concent 33.3 G/DL (32.0-36.0) 33.2 G/DL (32.0-36.0) Red Cell Distribution Width 16.8 % (11.6-14.8) H 16.3 % (11.6-14.8) H Platelet Count 147 K/UL (150-450) L 128 K/UL (150-450) L Mean Platelet Volume 7.2 FL (6.5-10.1) 6.8 FL (6.5-10.1) Neutrophils (%) (Auto) % (45.0-75.0) % (45.0-75.0) Lymphocytes (%) (Auto) % (20.0-45.0) % (20.0-45.0) Monocytes (%) (Auto) % (1.0-10.0) % (1.0-10.0) Eosinophils (%) (Auto) % (0.0-3.0) % (0.0-3.0) Basophils (%) (Auto) % (0.0-2.0) % (0.0-2.0) Differential Total Cells Counted 100 100 Neutrophils % (Manual) 81 % (45-75) H 87 % (45-75) H Lymphocytes % (Manual) 6 % (20-45) L 6 % (20-45) L Monocytes % (Manual) 4 % (1-10) 5 % (1-10) Eosinophils % (Manual) 0 % (0-3) 0 % (0-3) Basophils % (Manual) 0 % (0-2) 0 % (0-2) Band Neutrophils 9 % (0-8) H 2 % (0-8) Platelet Estimate Decreased L Decreased L Platelet Morphology Normal Normal Polychromasia 1+ Hypochromasia 1+ 1+ Anisocytosis 1+ 2+ Macrocytosis 2+ 1+ Prothrombin Time 10.4 SEC (9.30-11.50) Prothromb Time International Ratio 1.0 (0.9-1.1) Activated Partial Thromboplast Time 24 SEC (23-33) Sodium Level 136 mEQ/L (135-145) 130 mEQ/L (135-145) L Potassium Level 3.3 mEQ/L (3.4-4.9) L 3.1 mEQ/L (3.4-4.9) L Chloride Level 91 mEQ/L (98-107) L 92 mEQ/L (98-107) L Carbon Dioxide Level 22 mEQ/L (20-30) 22 mEQ/L (20-30) Anion Gap 23 (5-15) H 16 (5-15) H Blood Urea Nitrogen 34 mg/dL (7-23) H 38 mg/dL (7-23) H Creatinine 7.0 mg/dL (0.7-1.2) H 7.3 mg/dL (0.7-1.2) H Estimat Glomerular Filtration Rate mL/min (>60) mL/min (>60) Glucose Level 249 mg/dL (74-106) H 326 mg/dL (74-106) H Lactic Acid Level 4.00 mmol/L (0.66-2.22) H 2.30 mmol/L (0.66-2.22) H 2.00 mmol/L (0.66-2.22) Calcium Level 9.3 mg/dL (8.6-10.2) 8.2 mg/dL (8.6-10.2) L Total Bilirubin 0.4 mg/dL (0.0-1.2) 0.3 mg/dL (0.0-1.2) Aspartate Amino Transf (AST/SGOT) 24 U/L (5-40) 17 U/L (5-40) Alanine Aminotransferase (ALT/SGPT) 18 U/L (3-41) 13 U/L (3-41) Alkaline Phosphatase 202 U/L (40-129) H 138 U/L (40-129) H Total Creatine Kinase 60 U/L (38-174) Troponin I < 0.30 ng/mL (<=0.30) Pro-B-Type Natriuretic Peptide 94847 pg/mL (0-450) H Total Protein 6.8 g/dL (6.6-8.7) 5.1 g/dL (6.6-8.7) L Albumin 3.9 g/dL (3.5-5.2) 3.0 g/dL (3.5-5.2) L Globulin 2.9 g/dL 2.1 g/dL Albumin/Globulin Ratio 1.3 (1.0-2.7) 1.4 (1.0-2.7) Triglycerides Level 169 mg/dL (< 150) H Nucleated Red Blood Cells 1 /100 WBC Microcytosis 1+ Direct Bilirubin 0.2 mg/dL (0.1-0.3) Test 04/16/17 09:10 Arterial Blood pH 7.452 (7.350-7.450) Arterial Blood Partial Pressure CO2 29.0 mmHg (35.0-45.0) L Arterial Blood Partial Pressure O2 114.2 mmHg (75.0-100.0) H Arterial Blood HCO3 19.6 mmol/L (22.0-26.0) L Arterial Blood Oxygen Saturation 97.4 % (92.0-98.0) Arterial Blood Base Excess -3.3 Mike Test Positive DANESHRAD,ACE Apr 16, 2017 10:35
[2017-04-16] MEDS ORDERED: Pyridostigmine 60mg tab ORAL ONE (11:30)
[2017-04-16] MEDS: NovoLOG Insulin Flexpen SUBQ SCH ×3 (12:04→23:31)
--- NOTE | 2017-04-16 13:58 | Diagnostic Imaging Report ---
Indications: Intubation Technique: Portable AP chest at 2341 Findings: Comparison: 1960 Endotracheal tube has been placed, tip 4 cm above winifred. Bibasal parenchymal/pleural opacities unchanged. No new abnormality. IMPRESSION: Endotracheal tube in good position No other change from 4 hours prior
[2017-04-16] MEDS ORDERED: Etomidate 40mg/20ml Inj IV ONE (14:11)
--- NOTE | 2017-04-16 14:30 | Diagnostic Imaging Report ---
Indications: DYSPNEA Technique: Portable AP chest Findings: Comparison: None Bilateral costophrenic angle is blunted, right greater than left. Apparent right hemidiaphragm elevated. Portions of both lung bases obscured. Cardiac silhouette enlarged. Pulmonary vasculature within normal limits. Aortic arch calcified. Left chest wall pacemaker. Right chest wall hemodialysis catheter. Abdominal right upper quadrant surgical clips. IMPRESSION: Bibasal pleural effusions, nonspecific, may be congestive. Underlying atelectasis or pneumonia in either or both lung bases not excludable Cardiomegaly with pacemaker Hemodialysis catheter in place Previous cholecystectomy
--- NOTE | 2017-04-16 14:46 | Consultation ---
Consult Note Consult Note Source: Patient, Family Member, EMS The patient presents with shortness of breath and hypotension. He has a history of dialysis - peritoneal and hemodialysis. He also has a history of pulmonary hypertension. Paramedics transported the patient here without treatment. His blood pressure is 84 the field. He was recently discharged from [facility] after having a staph infection in his umbilicus. He stopped vancomycin after dialysis one week ago. The patient denies any cough, chest pain. The patient rarely produces urine and denies dysuria. He denies abdominal pain. No rashes. No rigors or chills. says decreased appetite and "going down hill" recently with recent increase in weakness. H/O myasthenia gravis - though states this has been stable. Recent bone marrow at [facility]. Allergies: Coded Allergies: GERTRUDIS INHIBITORS (Unverified Allergy, Unknown, 04/15/17) LEVOFLOXACIN (Unverified Allergy, Unknown, 04/15/17) PENICILLINS (Verified Allergy, Unknown, 04/15/17) Past Surgical History: pacemaker Social History: Denies: smoking Social History Narrative Past Medical History: No History, Except For Hx Cardiac Problems: Yes - ESRD , CHF, A-FLUTTER, SPINAL STENOSIS Hx Hypertension: Yes - PULMONARY HYPERTENSION , BPH , CPAP Hx Pacemaker: Yes - dialysis right arm Hx Diabetes: Yes Hx Dialysis: Yes - 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 Hx Neurological Problems: Yes - spinal stenosis Hx Cerebrovascular Accident: Yes - 1995 Hx Seizures: No atient has permacath and Tenchoff- at bed side- Patinet agitated- Intubated with Low BP Assessment/Plan Septic shock , Low BP PAF S/p I and D infra umbilcal superficial MSSA abscess. CHF, PHT. 90's rvd an hypokinesis ESRD : On Hemo and Peritoneal dialysis Anemia. MDS? Illness of past 2 to 3 months may NOT be under dialysis, rather smoldering abscess. Plan: Hemodynamic support- Optimize cardiac and Pulm status monitor renal parameters HD when stable LORENZA SANTOS Apr 16, 2017 14:46
[2017-04-16] MEDS: PARoxetine 10mg tab ORAL SCH (14:47)
--- NOTE | 2017-04-16 15:56 | Neurology Progress Note ---
Objective Physical Exam Last Vital Signs Date Time Temp Pulse Resp B/P Pulse Ox O2 Delivery O2 Flow Rate FiO2 04/16/17 15:24 82 20 30 04/16/17 12:25 30.0 04/16/17 10:15 112/47 98 Mechanical Ventilator 04/16/17 08:00 98.8 Laboratory Tests Test 04/15/17 19:33 04/15/17 19:47 04/15/17 22:33 04/16/17 05:10 Arterial Blood pH 7.456 (7.350-7.450) Arterial Blood Partial Pressure CO2 27.5 mmHg (35.0-45.0) L Arterial Blood Partial Pressure O2 181.5 mmHg (75.0-100.0) H Arterial Blood HCO3 18.9 mmol/L (22.0-26.0) L Arterial Blood Oxygen Saturation 98.7 % (92.0-98.0) H Arterial Blood Base Excess -4.1 Mike Test Positive White Blood Count 27.2 K/UL (4.8-10.8) *H 27.4 K/UL (4.8-10.8) *H Red Blood Count 3.13 M/UL (4.70-6.10) L 2.48 M/UL (4.70-6.10) L Hemoglobin 11.4 G/DL (14.2-18.0) L 8.8 G/DL (14.2-18.0) L Hematocrit 34.3 % (42.0-52.0) L 26.6 % (42.0-52.0) L Mean Corpuscular Volume 110 FL (80-99) H 107 FL (80-99) H Mean Corpuscular Hemoglobin 36.5 PG (27.0-31.0) H 35.6 PG (27.0-31.0) H Mean Corpuscular Hemoglobin Concent 33.3 G/DL (32.0-36.0) 33.2 G/DL (32.0-36.0) Red Cell Distribution Width 16.8 % (11.6-14.8) H 16.3 % (11.6-14.8) H Platelet Count 147 K/UL (150-450) L 128 K/UL (150-450) L Mean Platelet Volume 7.2 FL (6.5-10.1) 6.8 FL (6.5-10.1) Neutrophils (%) (Auto) % (45.0-75.0) % (45.0-75.0) Lymphocytes (%) (Auto) % (20.0-45.0) % (20.0-45.0) Monocytes (%) (Auto) % (1.0-10.0) % (1.0-10.0) Eosinophils (%) (Auto) % (0.0-3.0) % (0.0-3.0) Basophils (%) (Auto) % (0.0-2.0) % (0.0-2.0) Differential Total Cells Counted 100 100 Neutrophils % (Manual) 81 % (45-75) H 87 % (45-75) H Lymphocytes % (Manual) 6 % (20-45) L 6 % (20-45) L Monocytes % (Manual) 4 % (1-10) 5 % (1-10) Eosinophils % (Manual) 0 % (0-3) 0 % (0-3) Basophils % (Manual) 0 % (0-2) 0 % (0-2) Band Neutrophils 9 % (0-8) H 2 % (0-8) Platelet Estimate Decreased L Decreased L Platelet Morphology Normal Normal Polychromasia 1+ Hypochromasia 1+ 1+ Anisocytosis 1+ 2+ Macrocytosis 2+ 1+ Prothrombin Time 10.4 SEC (9.30-11.50) Prothromb Time International Ratio 1.0 (0.9-1.1) Activated Partial Thromboplast Time 24 SEC (23-33) Sodium Level 136 mEQ/L (135-145) 130 mEQ/L (135-145) L Potassium Level 3.3 mEQ/L (3.4-4.9) L 3.1 mEQ/L (3.4-4.9) L Chloride Level 91 mEQ/L (98-107) L 92 mEQ/L (98-107) L Carbon Dioxide Level 22 mEQ/L (20-30) 22 mEQ/L (20-30) Anion Gap 23 (5-15) H 16 (5-15) H Blood Urea Nitrogen 34 mg/dL (7-23) H 38 mg/dL (7-23) H Creatinine 7.0 mg/dL (0.7-1.2) H 7.3 mg/dL (0.7-1.2) H Estimat Glomerular Filtration Rate mL/min (>60) mL/min (>60) Glucose Level 249 mg/dL (74-106) H 326 mg/dL (74-106) H Lactic Acid Level 4.00 mmol/L (0.66-2.22) H 2.30 mmol/L (0.66-2.22) H 2.00 mmol/L (0.66-2.22) Calcium Level 9.3 mg/dL (8.6-10.2) 8.2 mg/dL (8.6-10.2) L Total Bilirubin 0.4 mg/dL (0.0-1.2) 0.3 mg/dL (0.0-1.2) Aspartate Amino Transf (AST/SGOT) 24 U/L (5-40) 17 U/L (5-40) Alanine Aminotransferase (ALT/SGPT) 18 U/L (3-41) 13 U/L (3-41) Alkaline Phosphatase 202 U/L (40-129) H 138 U/L (40-129) H Total Creatine Kinase 60 U/L (38-174) Troponin I < 0.30 ng/mL (<=0.30) Pro-B-Type Natriuretic Peptide 14219 pg/mL (0-450) H Total Protein 6.8 g/dL (6.6-8.7) 5.1 g/dL (6.6-8.7) L Albumin 3.9 g/dL (3.5-5.2) 3.0 g/dL (3.5-5.2) L Globulin 2.9 g/dL 2.1 g/dL Albumin/Globulin Ratio 1.3 (1.0-2.7) 1.4 (1.0-2.7) Triglycerides Level 169 mg/dL (< 150) H Nucleated Red Blood Cells 1 /100 WBC Microcytosis 1+ Direct Bilirubin 0.2 mg/dL (0.1-0.3) Test 04/16/17 09:10 04/16/17 11:35 04/16/17 14:30 Arterial Blood pH 7.452 (7.350-7.450) Arterial Blood Partial Pressure CO2 29.0 mmHg (35.0-45.0) L Arterial Blood Partial Pressure O2 114.2 mmHg (75.0-100.0) H Arterial Blood HCO3 19.6 mmol/L (22.0-26.0) L Arterial Blood Oxygen Saturation 97.4 % (92.0-98.0) Arterial Blood Base Excess -3.3 Mike Test Positive Lactic Acid Level 1.50 mmol/L (0.66-2.22) Amikacin Level Trough 31.1 ug/mL (10.0-15.0) H Impression/Recommendations Problems: (1) Myasthenia gravis (2) Acute respiratory failure (3) ESRD (end stage renal disease) on dialysis Status: unchanged Recommendations #[id number] JENNY WHITE Apr 16, 2017 15:56
[2017-04-16 18:18] LABS: THYROID STIMULATING HORMONE 1.11 uIU/mL (0.300-4.500)
--- NOTE | 2017-04-16 19:00 | Cardiology Report ---
APPROVED REPORT EXAM: Two-dimensional and M-mode echocardiogram with Doppler and color Doppler. INDICATION LV function M-Mode DIMENSIONS IVSd1.5 (0.7-1.1cm)Left Atrium (MM)4.1 (1.6-4.0cm) LVDd4.1 (3.5-5.6cm)Aortic Root4.1 (2.0-3.7cm) PWd1.4 (0.7-1.1cm)Aortic Cusp Exc.2.1 (1.5-2.0cm) LVDs2.7 (2.5-4.0cm) PWs1.7 cm Normal left ventricular chamber size, hyperdynamic systolic function and wall motion to extent visualized. Left ventricular ejection fraction estimated to be 70-75 %. Mild left ventricular hypertrophy. Anterior Echo-free space, may be due to pericardial fat or effusion. Mild left atrial enlargement. Right cardiac chamber sizes are within normal limits. Focal aortic valve sclerosis with adequate cusp excursion. Thickened mitral valve leaflets with normal excursion. Mitral annulus and aortic root calcification. Aortic root dilatation. Pulmonic valve not well visualized. Normal tricuspid valve structure. IVC at normal size with slight physiologic collapse. Pacemaker wire present in the right side chambers. A color flow and spectral Doppler study was performed and revealed: Trace aortic regurgitation. Trace mitral regurgitation. Mitral diastolic velocities suggest reduced left ventricular relaxation c/w mild LV diastolic dysfunction (Grade I). Moderate tricuspid regurgitation. Tricuspid systolic velocities suggests peak right ventricular systolic pressure of 73 mmHg, consistent with severe pulmonary hypertension. Pulmonic regurgitation present.
[2017-04-16] MEDS ORDERED: Pyridostigmine 60mg tab ORAL SCH (20:00)
[2017-04-16] MEDS: Dyna-Hex 2% Top Sol 8oz TOPIC SCH (20:52)
--- NOTE | 2017-04-16 21:45 | Consultation ---
DATE OF CONSULTATION: 04/16/2017 INFECTIOUS DISEASE CONSULTATION This consult is for coverage of Dr. Toscano. PRIMARY ATTENDING PHYSICIAN: Leola Craven M.D. REASON FOR CONSULTATION: Sepsis. HISTORY OF PRESENT ILLNESS: The patient is an 82-year-old male admitted yesterday from health care facility because of shortness of breath and hypotension, has a blood pressure of 84. The patient had end-stage renal disease, on hemodialysis, also had a recent history of admission to [facility] [place] and was on vancomycin recently. According to the ER doctor, the patient was hypoglycemic. He was found to have leukocytosis and lactic acidosis. He was intubated in the ER and transferred to ICU. A femoral line was placed in the ER. The patient is currently on restrain, but awake. PAST MEDICAL HISTORY: End-stage renal disease, the patient is getting both hemodialysis and peritoneal dialysis. Hemodialysis is once in a week. The patient has pulmonary hypertension, myasthenia gravis, spinal stenosis, BPH, atrial flutter, and history of CVA. PAST SURGICAL HISTORY: Status post pacemaker placement and status post PermCath placement. MEDICATIONS: Insulin, allopurinol, amiodarone, Apixaban, vancomycin, levothyroxine, Azactam, amikacin, DuoNeb inhaler, morphine, polyethylene glycol, norepinephrine, apparently has dose of only 1 mcg/kg per minute. ALLERGIES: Allergic to GERTRUDIS inhibitor, Levaquin, and penicillin. PHYSICAL EXAMINATION: GENERAL: The patient is awake, alert, and communicated with nodding. Denies abdominal pain. VITAL SIGNS: Pulse 85, blood pressure 120/49, and temperature 99.3 degrees. HEAD AND NECK: Orally intubated. HEART: Normal rate. 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 Have PermCath in the right side of the chest. LUNGS: Clear. ABDOMEN: Soft. There is a peritoneal dialysis. EXTREMITIES: No edema. He has a right femoral line. LABORATORY AND DIAGNOSTIC DATA: WBC is 27.4, hemoglobin 8.8, hematocrit 26.6, and platelet 128,000. Sodium 130, potassium 3.5, chloride 92, bicarbonate 22, BUN 38, creatinine 7.3, and glucose 326. Lactic acid is 2, at the time of admission was 4. Chest x-ray showed some pleural effusion in the right side. IMPRESSION: Severe sepsis and septic shock with hypotension and leukocytosis. Other acute respiratory failure, source of infection is not clear, now may have line infection. The patient has both hemodialysis catheter and peritoneal dialysis. The patient is anemic and has end-stage renal disease. He has history of myasthenia, has lactic acidosis, hyponatremia, and spinal stenosis by history. RECOMMENDATION: We will continue with current antibiotic, vancomycin, amikacin, and aztreonam. We will follow up the culture. At the end of my exam, I thank, Dr. Craven, for involving me in the care of this patient. Donato Alford M.D. DR: HUMBERTO JOB#: [id number] CC:
[2017-04-16] MEDS: Pyridostigmine 60mg tab ORAL SCH (21:50)
[2017-04-16] MEDS: Aztreonam 0.5gm/D5W 55ml IVPB SCH ×2 (22:29)
--- NOTE | 2017-04-16 23:15 | Consultation ---
DATE OF CONSULTATION: 04/16/2017 NEUROLOGICAL CONSULTATION CONSULTING PHYSICIAN: Jose Rafael Reese M.D. REQUESTING PHYSICIAN: Leola Craven M.D. HISTORY OF PRESENT ILLNESS: This is an 82-year-old man seen in neurological consultation to assist with the management of myasthenia gravis. The patient has a complex medical issues and has a history of stroke in 1995, then around 4 to 5 years ago, he developed an increasing difficulty in chewing, talking, was taken to Neurology at [facility] where he was diagnosed with myasthenia gravis. He was initially placed on Mestinon 60 mg q.i.d., but developed diarrhea and gradually the dose was down to 1 tablet daily, lately as he was getting increasing respiratory difficulties which were initially related to pulmonary hypertension suspected to have significant contributing to the weakness with a myasthenia gravis and a dose of Mestinon was increased b.i.d. This was tolerated well. The patient seem to be status post with increasing shortness of breath, being hypotensive, with a systolic blood pressure of 84. Reportedly, last couple weeks, he was treated with a staph infection with vancomycin, which stopped a week ago as he was started dialysis. He was complaining of decreasing appetite, generalized weakness and increasing weakness in his both lower extremities and difficulty with ambulation. In the emergency room, blood pressure was 84/79, was diagnosed with severe sepsis in the setting of end-stage renal disease, on hemodialysis, hypoxic and pulmonary hypertension. His latest laboratory work included WBC 27.4, hemoglobin 8.8, hematocrit 26.6, and platelets . Chemistry panel with anion gap of 23, BUN of 34, creatinine 7.0, and blood sugar 239. Lactic acid 4.00 and BNP is 24,378. Coagulation panel was normal. The patient's treatment now includes Mestinon 60 mg b.i.d. antibiotics. PAST MEDICAL HISTORY: History of cervical spinal stenosis required the laminectomy few years ago, the patient recently started complaining increasing pain in his upper back, neck. The patient has a history of CHF, pulmonary hypertension, end-renal disease on hemodialysis, chronic anemia, myasthenia gravis, and paroxysmal atrial fibrillation. ALLERGIES: Levofloxacin, penicillin, and GERTRUDIS inhibitors. REVIEW OF SYMPTOMS: The patient was intubated, but was able to display some complaints with gestures indicating increasing difficulty ambulation, difficulty respiration, he is annoyed with NG tube and E-tube placed. He requested to increase doses of Mestinon. PHYSICAL EXAMINATION: GENERAL: A well-developed, well-nourished man, not in acute distress, intubated. His at bedside. Vital signs: Vital signs now are stable. Blood pressure 112/47 and 06:53 93. Afebrile. HEENT: Head, normocephalic. There is no evidence of trauma. Eyes, ears, and throat are clear. NECK: Supple. No meningeal signs. MUSCULOSKELETAL: Examination unremarkable. No deformities noted. Venous stasis in both lower extremities. Peripheral pulses 1+ symmetric. MENTAL STATUS: Full alert, follows commands properly, appears coherent, but irritated due to NG in place. CRANIAL NERVE II: Pupils both responding to light and accommodation. Extraocular movement intact. No nystagmus. CRANIAL NERVE V: Normal corneal responses. CRANIAL NERVE VII: No facial asymmetry. CRANIAL NERVE IX THROUGH XII: Reduced gag responses. There is a weakness of the head extension and flexion. MOTOR EXAMINATION: Normal muscle tone in both upper extremities and seems slightly high tone in lower extremities. Able to move arms and legs with a sufficient strength, deep reflexes are depressed in the biceps, triceps, brachioradialis, but very brisk 3+ knee jerks, 2+ both ankle jerks. Plantar responses are mute. SENSORY EXAMINATION: Decreased responses to pin stimulation in both lower extremities. Unable to identify level. IMPRESSION: 1. Myasthenia gravis probably progressing. 2. Status post cervical spinal stenosis. Surgical treatment residual. 3. Paraparesis. 4. Respiratory insufficiency, on mechanical ventilator. 5. Pacemaker in place. 6. Hypertension, now hypotensive. 7. Congestive heart failure. 8. Paroxysmal atrial fibrillation. 9. Depression. RECOMMENDATION: Increased Mestinon up 160 mg t.i.d. related to cervical spine compression. Will address by his attending. CT of the cervical spine would be necessary and to have interval assessment. Meanwhile, the patient has significant medical issues all contributing to generalized weakness. The patient continue with IV fluids, antibiotics, and supportive care. The patient has an appointment with his [facility] neurologist following discharge from the hospital. Jose Rafael Lorenzo Reese DR: YAEL JOB#: [id number] CC:
[2017-04-17] VITALS (26 sets, daily range): BP systolic 87–151; BP diastolic 41–97
[2017-04-17 05:44] LABS: BASOPHILS % (AUTO) 0.5 % (0.0-2.0); EOSINOPHILS % (AUTO) 0.2 % (0.0-3.0); LYMPHOCYTES % (AUTO) 15.4 % (20.0-45.0); MEAN CORPUSCULAR HEMOGLOBIN 36.1 PG (27.0-31.0); MEAN CORPUSCULAR HGB CONC 34.3 G/DL (32.0-36.0); MEAN CORPUSCULAR VOLUME 105 FL (80-99); MEAN PLATELET VOLUME 6.6 FL (6.5-10.1); MONOCYTES % (AUTO) 9.7 % (1.0-10.0); NEUTROPHILS % (AUTO) 74.2 % (45.0-75.0); PLATELET COUNT 110 K/UL (150-450); RED BLOOD COUNT 2.29 M/UL (4.70-6.10); RED CELL DISTRIBUTION WIDTH 16.1 % (11.6-14.8); WHITE BLOOD COUNT 14.1 K/UL (4.8-10.8)
[2017-04-17] MEDS: Pyridostigmine 60mg tab ORAL SCH ×3 (05:53→21:22)
[2017-04-17] MEDS: NovoLOG Insulin Flexpen SUBQ SCH ×3 (05:53→18:33)
[2017-04-17 06:20] LABS: CHOLESTEROL 112 mg/dL (< 200); CHOLESTEROL/HDL RATIO 2.9 (3.3-4.4); CRP QUANT 9.2 mg/dL (< 0.5); HEMOLYSIS 7; LDL CHOLESTEROL (CALC.) 36 mg/dL (60-99); URIC ACID 6.3 mg/dL (3.0-7.5)
[2017-04-17 06:40] LABS: ALANINE AMINOTRANSFERASE 12 U/L (3-41); ALBUMIN/GLOBULIN RATIO 1.2 (1.0-2.7); ANION GAP 20 (5-15); ASPARTATE AMINO TRANSFERASE 27 U/L (5-40); CALCIUM 8.5 mg/dL (8.6-10.2); CARBON DIOXIDE 21 mEQ/L (20-30); CHLORIDE 94 mEQ/L (98-107); CREATININE 8.8 mg/dL (0.7-1.2); HEMOLYSIS 8; MAGNESIUM 1.6 mg/dL (1.7-2.5); PHOSPHORUS 3.4 mg/dL (2.5-4.8); POTASSIUM 3.1 mEQ/L (3.4-4.9); SODIUM 135 mEQ/L (135-145); TOTAL PROTEIN 5.2 g/dL (6.6-8.7)
[2017-04-17 06:43] LABS: TROPONIN I < 0.30 ng/mL (<=0.30)
[2017-04-17] MEDS: Aztreonam 0.5gm/D5W 55ml IVPB SCH ×4 (08:54→21:22)
[2017-04-17] MEDS: PARoxetine 10mg tab ORAL SCH (08:54)
[2017-04-17] MEDS: Allopurinol 100mg Tab ORAL SCH (08:54)
--- NOTE | 2017-04-17 09:45 | General Progress Note ---
Assessment/Plan Status: unchanged Assessment/Plan ESRD : On Hemo and Peritoneal dialysis Septic shock , Low BP stablizing PAF S/p I and D infra umbilcal superficial MSSA abscess. CHF, PHT. 90's hypokinesis Anemia. MDS? Plan: Hemodynamic support- HD today- Optimize cardiac and Pulm status monitor renal parameters per orders Subjective ROS Limited/Unobtainable: Yes Allergies: Coded Allergies: GERTRUDIS INHIBITORS (Unverified Allergy, Unknown, 04/15/17) LEVOFLOXACIN (Unverified Allergy, Unknown, 04/15/17) PENICILLINS (Verified Allergy, Unknown, 04/15/17) Objective Last 24 Hour Vital Signs Date Time Temp Pulse Resp B/P (MAP) Pulse Ox O2 Delivery O2 Flow Rate FiO2 04/17/17 09:29 80 20 30 04/17/17 08:00 97.8 77 21 130/77 100 Mechanical Ventilator 30 04/17/17 08:00 30.0 04/17/17 08:00 79 04/17/17 07:29 74 18 30 04/17/17 07:00 78 21 148/97 99 Mechanical Ventilator 30 04/17/17 06:00 84 21 150/71 99 Mechanical Ventilator 30 04/17/17 05:25 78 23 30 04/17/17 05:00 81 21 151/80 97 Mechanical Ventilator 30 04/17/17 04:00 30.0 04/17/17 04:00 80 04/17/17 04:00 97.7 80 23 115/60 99 Mechanical Ventilator 30 04/17/17 03:00 80 16 106/59 99 Mechanical Ventilator 30 04/17/17 02:32 79 16 30 04/17/17 02:00 76 16 89/49 99 Mechanical Ventilator 30 04/17/17 01:30 82 16 30 04/17/17 01:00 81 16 98/53 99 Mechanical Ventilator 30 04/17/17 00:00 30.0 04/17/17 00:00 83 04/17/17 00:00 98.4 78 16 106/54 99 Mechanical Ventilator 30 04/16/17 23:30 82 16 30 04/16/17 23:00 76 16 105/52 99 Mechanical Ventilator 30 04/16/17 22:15 101/49 04/16/17 22:00 84 16 101/49 97 Mechanical Ventilator 30 04/16/17 21:30 84 16 30 04/16/17 21:00 82 17 139/74 99 Mechanical Ventilator 30 04/16/17 20:00 83 04/16/17 20:00 30.0 04/16/17 20:00 80 16 112/60 98 Mechanical Ventilator 30 04/16/17 19:30 82 20 30 04/16/17 19:00 98.1 86 19 102/55 96 Mechanical Ventilator 30 04/16/17 18:00 80 17 101/56 98 Mechanical Ventilator 30 04/16/17 17:29 98 18 30 04/16/17 17:00 82 19 89/46 100 Mechanical Ventilator 30 04/16/17 16:00 30.0 04/16/17 16:00 82 04/16/17 16:00 98.6 81 19 107/47 99 Mechanical Ventilator 30 04/16/17 15:30 82 19 93/51 100 Mechanical Ventilator 30 04/16/17 15:24 82 20 30 04/16/17 15:00 82 19 99/61 100 Mechanical Ventilator 30 04/16/17 14:30 82 19 96/63 99 Mechanical Ventilator 30 04/16/17 14:00 82 19 95/52 99 Mechanical Ventilator 30 04/16/17 13:30 84 21 96/45 99 Mechanical Ventilator 30 04/16/17 13:00 94 18 93/47 99 Mechanical Ventilator 30 04/16/17 12:46 89 20 30 04/16/17 12:30 85 19 99/44 99 Mechanical Ventilator 30 04/16/17 12:25 30.0 04/16/17 12:00 87 04/16/17 12:00 98.0 87 21 106/41 99 Mechanical Ventilator 30 04/16/17 11:30 86 19 97/48 99 Mechanical Ventilator 30 04/16/17 11:00 88 22 30 04/16/17 11:00 91 19 102/41 99 Mechanical Ventilator 30 04/16/17 10:30 95 19 100/40 97 Mechanical Ventilator 30 04/16/17 10:15 93 21 112/47 98 Mechanical Ventilator 30 04/16/17 10:00 85 20 106/61 98 Mechanical Ventilator 30 04/16/17 09:45 83 17 85/48 98 Mechanical Ventilator 30 Intake and Output 04/17/17 04/18/17 19:00 07:00 Intake Total 0 ml Output Total 0 ml Balance 0 ml Intake Oral 0 ml Output Urine Total 0 ml Laboratory Tests 04/16/17 11:35: Lactic Acid Level 1.50 04/16/17 14:30: Amikacin Level Trough 31.1H 04/16/17 16:30: Reticulocyte Count 1.2, Haptoglobin 85, Fibrinogen 379, Iron Level 46L, Total Iron Binding Capacity 195L, Percent Iron Saturation 24, Unsaturated Iron Binding 149, Ferritin 183, Lactate Dehydrogenase 279H, Carcinoembryonic Antigen 10.9H, Prostate Specific Antigen 7.0H, Vitamin B12 Level 832, Methylmalonic Acid [Pending], Folate [Pending], Thyroid Stimulating Hormone (TSH) 1.110, Hepatitis A IgM Antibody [Pending], Hepatitis B Surface Antigen [Pending], Hepatitis B Core IgM Antibody [Pending], Hepatitis C Antibody [Pending], HIV (1& 2) Antibody Rapid Negative 04/17/17 05:00: White Blood Count 14.1H, Red Blood Count 2.29L, Hemoglobin 8.3L, Hematocrit 24.1L, Mean Corpuscular Volume 105H, Mean Corpuscular Hemoglobin 36.1H, Mean Corpuscular Hemoglobin Concent 34.3, Red Cell Distribution Width 16.1H, Platelet Count 110L, Mean Platelet Volume 6.6, Neutrophils (%) (Auto) 74.2, Lymphocytes (%) (Auto) 15.4L, Monocytes (%) (Auto) 9.7, Eosinophils (%) (Auto) 0.2, Basophils (%) (Auto) 0.5, Sodium Level 135, Potassium Level 3.1L, Chloride Level 94L, Carbon Dioxide Level 21, Anion Gap 20H, Blood Urea Nitrogen 52H, Creatinine 8.8H, Estimat Glomerular Filtration Rate , Glucose Level 86#, Uric Acid 6.3, Calcium Level 8.5L, Phosphorus Level 3.4, Magnesium Level 1.6L, Total Bilirubin 0.4, Gamma Glutamyl Transpeptidase 68H, Aspartate Amino Transf (AST/ SGOT) 27, Alanine Aminotransferase (ALT/SGPT) 12, Alkaline Phosphatase 124, Total Creatine Kinase 142, Troponin I < 0.30, C-Reactive Protein, Quantitative 9.2H, Pro-B-Type Natriuretic Peptide 13432A, Total Protein 5.2L, Albumin 2.9L, Globulin 2.3, Albumin/Globulin Ratio 1.2, Triglycerides Level 183H, Cholesterol Level 112, LDL Cholesterol 36L, HDL Cholesterol 39, Cholesterol/HDL Ratio 2.9L, Lipase 117H Height (Feet): 5 Height (Inches): 8.00 Weight (Pounds): 144 EENT: other - intubated in ICU Cardiovascular: normal rate, arrhythmia Respiratory/Chest: decreased breath sounds Abdomen: distended LORENZA SANTOS Apr 17, 2017 09:45
[2017-04-17 09:58] LABS: ABG ALLEN TEST POSITIVE; ABG BASE EXCESS -4.4; ABG PCO2 36.6 mmHg (35.0-45.0)
--- NOTE | 2017-04-17 10:03 | Diagnostic Imaging Report ---
Indications: DYSPNEA Technique: Portable AP chest Findings: Comparison: 04/15/17 Pulmonary inflation has modestly improved. Basal opacities have decreased. Blunting of right costophrenic angle persists. Cardiac silhouette remains largely obscured. Nasogastric tube has been placed, tip off the edge of the image, below diaphragm. Remaining lines and tubes remain in place. No new abnormality identified. IMPRESSION: Improvement in bibasal atelectasis Atelectasis versus small pleural effusion right costophrenic angle, stable Nasogastric tube placed, likely in stomach
--- NOTE | 2017-04-17 10:09 | Pulmonolgy Critical Care Note ---
Critical Care - Asmt/Plan Problems: (1) Acute respiratory failure (2) Septic shock (3) ESRD (end stage renal disease) on dialysis (4) Myasthenia gravis Respiratory: monitor respiratory rate, adjust FIO2, CXR Cardiac: stop pressors, continue to monitor HR/BP Renal: F/U I&O, keep IV fluid Gastrointestinal: continue feedings/current rate, hold feedings Endocrine: monitor blood sugar, check HgA1C, continue sliding scale insulin Hematologic: monitor H/H, transfuse if hgb<8.5 Neurologic: PRN Ativan, PRN Morphine, keep patient comfortable Prophylaxis: Heparin Disposition: keep in ICU Notes Reviewed: web production assistant, renal Discussed with: nurses, consultants, block and case makerrig manager - Objective Last 24 Hour Vital Signs Date Time Temp Pulse Resp B/P (MAP) Pulse Ox O2 Delivery O2 Flow Rate FiO2 04/17/17 09:29 80 20 30 04/17/17 09:00 80 21 141/87 99 Mechanical Ventilator 30 04/17/17 08:00 97.8 77 21 130/77 100 Mechanical Ventilator 30 04/17/17 08:00 30.0 04/17/17 08:00 79 04/17/17 07:29 74 18 30 04/17/17 07:00 78 21 148/97 99 Mechanical Ventilator 30 04/17/17 06:00 84 21 150/71 99 Mechanical Ventilator 30 04/17/17 05:25 78 23 30 04/17/17 05:00 81 21 151/80 97 Mechanical Ventilator 30 04/17/17 04:00 30.0 04/17/17 04:00 80 04/17/17 04:00 97.7 80 23 115/60 99 Mechanical Ventilator 30 04/17/17 03:00 80 16 106/59 99 Mechanical Ventilator 30 04/17/17 02:32 79 16 30 04/17/17 02:00 76 16 89/49 99 Mechanical Ventilator 30 04/17/17 01:30 82 16 30 04/17/17 01:00 81 16 98/53 99 Mechanical Ventilator 30 04/17/17 00:00 30.0 04/17/17 00:00 83 04/17/17 00:00 98.4 78 16 106/54 99 Mechanical Ventilator 30 04/16/17 23:30 82 16 30 04/16/17 23:00 76 16 105/52 99 Mechanical Ventilator 30 04/16/17 22:15 101/49 04/16/17 22:00 84 16 101/49 97 Mechanical Ventilator 30 04/16/17 21:30 84 16 30 04/16/17 21:00 82 17 139/74 99 Mechanical Ventilator 30 04/16/17 20:00 83 04/16/17 20:00 30.0 04/16/17 20:00 80 16 112/60 98 Mechanical Ventilator 30 04/16/17 19:30 82 20 30 04/16/17 19:00 98.1 86 19 102/55 96 Mechanical Ventilator 30 04/16/17 18:00 80 17 101/56 98 Mechanical Ventilator 30 04/16/17 17:29 98 18 30 04/16/17 17:00 82 19 89/46 100 Mechanical Ventilator 30 04/16/17 16:00 30.0 04/16/17 16:00 82 04/16/17 16:00 98.6 81 19 107/47 99 Mechanical Ventilator 30 04/16/17 15:30 82 19 93/51 100 Mechanical Ventilator 30 04/16/17 15:24 82 20 30 04/16/17 15:00 82 19 99/61 100 Mechanical Ventilator 30 04/16/17 14:30 82 19 96/63 99 Mechanical Ventilator 30 04/16/17 14:00 82 19 95/52 99 Mechanical Ventilator 30 04/16/17 13:30 84 21 96/45 99 Mechanical Ventilator 30 04/16/17 13:00 94 18 93/47 99 Mechanical Ventilator 30 04/16/17 12:46 89 20 30 04/16/17 12:30 85 19 99/44 99 Mechanical Ventilator 30 04/16/17 12:25 30.0 04/16/17 12:00 87 04/16/17 12:00 98.0 87 21 106/41 99 Mechanical Ventilator 30 04/16/17 11:30 86 19 97/48 99 Mechanical Ventilator 30 04/16/17 11:00 88 22 30 04/16/17 11:00 91 19 102/41 99 Mechanical Ventilator 30 04/16/17 10:30 95 19 100/40 97 Mechanical Ventilator 30 04/16/17 10:15 93 21 112/47 98 Mechanical Ventilator 30 Status: awake Condition: critical Neck: full ROM Heart: HR/BP stable, HR/BP unstable, regular Abdomen: non-tender, active bowel sounds, feeding tube Extremities: edema Decubiti: location Micro: Microbiology Date/Time Source Procedure Growth Status 04/15/17 20:00 Blood Blood Culture - Preliminary NO GROWTH AFTER 24 HOURS Resulted 04/15/17 19:47 Blood Blood Culture - Preliminary NO GROWTH AFTER 24 HOURS Resulted 04/16/17 04:00 Sputum Gram Stain - Final Resulted 04/16/17 04:00 Sputum Culture - Preliminary Gram Negative Bacillus 1 Usual Upper Respiratory Kary Resulted Accucheck: 95 Critical Care - Subjective ROS Limited/Unobtainable: Yes ICU Day: 2 Intubation Day: 2 Condition: critical EKG Rhythm: Sinus Rhythm FI02: 30 Vent Support Breath Rate: 16 Vent Support Mode: AC Vent Tidal Volume: 600 Sputum Amount: Small PIP: 27 Drips: off levophed I&O: Intake and Output 04/17/17 04/18/17 19:00 07:00 Intake Total 0 ml Output Total 0 ml Balance 0 ml Intake Oral 0 ml Output Urine Total 0 ml CXR: ET in good position ET-Tube: 7.5 ET Position: 23 Labs: Laboratory Tests Test 04/16/17 11:35 04/16/17 14:30 04/16/17 16:30 04/17/17 05:00 Lactic Acid Level 1.50 mmol/L (0.66-2.22) Amikacin Level Trough 31.1 ug/mL (10.0-15.0) H Reticulocyte Count 1.2 % (0.0-2.0) Haptoglobin 85 mg/dL (30-200) Fibrinogen 379 mg/dL (200-400) Iron Level 46 ug/dL (59-158) L Total Iron Binding Capacity 195 ug/dL (250-400) L Percent Iron Saturation 24 % (15-50) Unsaturated Iron Binding 149 ug/dL (112-346) Ferritin 183 ng/mL (10-230) Lactate Dehydrogenase 279 U/L (135-230) H Carcinoembryonic Antigen 10.9 ng/mL H Prostate Specific Antigen 7.0 ng/mL (< 4.5) H Vitamin B12 Level 832 pg/mL (211-946) Methylmalonic Acid Pending Folate Pending Thyroid Stimulating Hormone (TSH) 1.110 uIU/mL (0.300-4.500) Hepatitis A IgM Antibody Pending Hepatitis B Surface Antigen Pending Hepatitis B Core IgM Antibody Pending Hepatitis C Antibody Pending HIV (1&2) Antibody Rapid Negative (NEGATIVE) White Blood Count 14.1 K/UL (4.8-10.8) H Red Blood Count 2.29 M/UL (4.70-6.10) L Hemoglobin 8.3 G/DL (14.2-18.0) L Hematocrit 24.1 % (42.0-52.0) L Mean Corpuscular Volume 105 FL (80-99) H Mean Corpuscular Hemoglobin 36.1 PG (27.0-31.0) H Mean Corpuscular Hemoglobin Concent 34.3 G/DL (32.0-36.0) Red Cell Distribution Width 16.1 % (11.6-14.8) H Platelet Count 110 K/UL (150-450) L Mean Platelet Volume 6.6 FL (6.5-10.1) Neutrophils (%) (Auto) 74.2 % (45.0-75.0) Lymphocytes (%) (Auto) 15.4 % (20.0-45.0) L Monocytes (%) (Auto) 9.7 % (1.0-10.0) Eosinophils (%) (Auto) 0.2 % (0.0-3.0) Basophils (%) (Auto) 0.5 % (0.0-2.0) Sodium Level 135 mEQ/L (135-145) Potassium Level 3.1 mEQ/L (3.4-4.9) L Chloride Level 94 mEQ/L (98-107) L Carbon Dioxide Level 21 mEQ/L (20-30) Anion Gap 20 (5-15) H Blood Urea Nitrogen 52 mg/dL (7-23) H Creatinine 8.8 mg/dL (0.7-1.2) H Estimat Glomerular Filtration Rate mL/min (>60) Glucose Level 86 mg/dL (74-106) # Uric Acid 6.3 mg/dL (3.0-7.5) Calcium Level 8.5 mg/dL (8.6-10.2) L Phosphorus Level 3.4 mg/dL (2.5-4.8) Magnesium Level 1.6 mg/dL (1.7-2.5) L Total Bilirubin 0.4 mg/dL (0.0-1.2) Gamma Glutamyl Transpeptidase 68 U/L (8-61) H Aspartate Amino Transf (AST/SGOT) 27 U/L (5-40) Alanine Aminotransferase (ALT/SGPT) 12 U/L (3-41) Alkaline Phosphatase 124 U/L (40-129) Total Creatine Kinase 142 U/L (38-174) Troponin I < 0.30 ng/mL (<=0.30) C-Reactive Protein, Quantitative 9.2 mg/dL (< 0.5) H Pro-B-Type Natriuretic Peptide 46115 pg/mL (0-450) H Total Protein 5.2 g/dL (6.6-8.7) L Albumin 2.9 g/dL (3.5-5.2) L Globulin 2.3 g/dL Albumin/Globulin Ratio 1.2 (1.0-2.7) Triglycerides Level 183 mg/dL (< 150) H Cholesterol Level 112 mg/dL (< 200) LDL Cholesterol 36 mg/dL (60-99) L HDL Cholesterol 39 mg/dL (> 60) Cholesterol/HDL Ratio 2.9 (3.3-4.4) L Lipase 117 U/L (< 60) H Test 04/17/17 09:10 Arterial Blood pH 7.360 (7.350-7.450) Arterial Blood Partial Pressure CO2 36.6 mmHg (35.0-45.0) Arterial Blood Partial Pressure O2 105.8 mmHg (75.0-100.0) H Arterial Blood HCO3 20.5 mmol/L (22.0-26.0) L Arterial Blood Oxygen Saturation 96.8 % (92.0-98.0) Arterial Blood Base Excess -4.4 Mike Test Positive QUYNH CARDONA Apr 17, 2017 10:09
--- NOTE | 2017-04-17 10:16 | Consultation ---
DATE OF CONSULTATION: 04/16/2017 CARDIOLOGY CONSULTATION REFERRING PHYSICIAN: Leola Craven M.D. REASON FOR REFERRAL: History of atrial fibrillation, hypotension, and pacemaker implantation. History Of Present Illness: This is an elderly gentleman, who was recently hospitalized and discharged at [facility] with extensive medical problems including history of atrial fibrillation paroxysmal in nature, flutter paroxysmal in nature, pulmonary hypertension, and myasthenia gravis, and recent abdominal wound infection, status post incision and drainage at [facility], who was on intravenous antibiotics at home. The patient apparently 00:51 initially after discharging from [facility] approximately one week ago. Only over the past week, was actually getting worse, was not really being able to pinpoint what has been going on, but possibly some increasing shortness of breath and not feeling well. Poor p.o. intake for approximately two to three days and some nausea and some vomiting and he has had chronic diarrhea for which he has been treated for number of years. He is on home oxygen therapy approximately four liters, he has increased it to five liters over the past week. He really does not have any pain or pressure in his chest. He uses a recliner to sleep in because of comfort with breathing and had some dizziness and lightheadedness for a few days before he came into the hospital. He has not had any pain, pressure, or tightness in his chest. No heart pounding or palpitations. He has been brought to the emergency room at [facility] after complaining to his that he was not feeling good and requested the paramedics were summoned. [facility] was closed, so the patient was actually transferred here to the emergency room at [facility] where he has been admitted. His blood pressure in the field was 84 according to the emergency room physician's notation 84/39. The patient was felt to be septic with metabolic acidosis, hypoglycemia, hypotension, and hypoxemia. Oxygen was administered. Albuterol was administered. Bolus of fluids 02:21 and because of his end-stage renal disease, limitations were placed with IV administration. He was started on pressors and central line was placed. He was weak and confused. Fort that reason apparently he was intubated in the emergency room. He was sedated with propofol initially in the emergency room. Now, he is awake and responsive and he is wanting to have the ventilator discontinued. PAST MEDICAL HISTORY: According to the [facility] records, which is extensive, history of congestive heart failure, hypertensive cardiovascular disease, pulmonary hypertension, diabetes mellitus, anemia, COPD, syncope and collapse, moderate mitral regurgitation, moderate to severe tricuspid regurgitation, paroxysmal episodes of atrial fibrillation, GI bleeding, post resection of the polyp back in October 2013, diarrhea, chronic in nature, abdominal wall abscess, end-stage renal disease, on hemodialysis; myasthenia gravis, obstructive sleep apnea, on CPAP, hypoxemia, cervical stenosis of the spine, gastric obstruction, adenomatous colonic polyps, family history of colonic cancer, bacterial overgrowth, abdominal bloating, renal failure on hemodialysis as well as peritoneal dialysis, hemodialysis one time a day, peritoneal dialysis six times a day; history of permanent pacemaker implantation, hypogonadism, B12 deficiency, anemia of chronic disease, and myeloproliferative disorder. SOCIAL HISTORY: He is a former smoker. Alcohol, three and a half ounces of alcohol per week according to the [facility] records and he lives at home with a supportive family members. REVIEW OF SYSTEMS: Gastrointestinal: Decreased p.o. intake and nausea and some minimal amount of vomiting. He has chronic diarrhea that has been treated. Genitourinary: Negative. Pulmonary: He has occasional coughing and wheezing and rhonchi. Constitutional: No fevers or chills. Neurologic: ____4.22_ admission here to [facility]. PHYSICAL EXAMINATION: GENERAL: Shows an elderly gentleman, on a mechanical ventilator. He is awake and responsive and communicative. His blood pressure is 104/44. NECK: Supple. LUNGS: Show rhonchi. CARDIAC: Regular rhythm. Increased P2 component. Holosystolic regurgitant murmur is noted. ABDOMEN: Soft. There is a peritoneal dialysis in place. There is no tenderness, no guarding, no rigidity of the abdominal area. EXTREMITIES: Shows chronic venous stasis changes. No significant edema at the present time on his examination of his lower extremities of any significant degree. LABORATORY AND DIAGNOSTIC DATA: His laboratory values show white count of 27.4 with a hemoglobin of 8.8 down from 11.4 yesterday with a platelet count of 128,000. Blood gases, pH of 7.45, pCO2 of 29, pO2 of 115, and bicarbonate of 19. Sodium is 130, potassium 3.9, chloride 92, bicarbonate of 22, BUN of 38, creatinine 7.3, and glucose of 326. Lactic acid was 4.0 at the time of admission, the subsequent decreased down to level of 2. Calcium is 8.2. Alkaline phosphatase of 138. Albumin of 3.1. Triglycerides of 169. Coags, INR of 1.2 and PTT of 24. A chest x-ray performed in the emergency room. Unfortunately, I am unable to obtain the chest x-ray, emergency physician's interpretation of consultation, pneumothorax, right pleural effusion, and cardiomegaly was noted. ASSESSMENT: 1. Septic shock. 2. Metabolic acidosis. 3. Hypotension. 4. History of proximal episodes of atrial fibrillation. 5. History of permanent pacemaker implantation. 6. Myasthenia gravis history. 7. History of incision and drainage of an umbilical superficial MSSA abscess. 8. History of congestive heart failure. 9. Pulmonary hypertension. 10. End-stage renal disease. 11. Anemia. 12. Questionable myelodysplastic syndrome. 13. Possibly smoldering abscess. Plan: Dr. Craven, this patient was seen in cardiac consultation. The patient requires pressors for blood pressure control, to be continued. He is on a mechanical ventilator, but he may be able to wean off hopefully soon. His last echocardiogram was done on 03/18/2017, at [facility] that showed ejection fraction of 60% to 70%, moderate left ventricular hypertrophy, left ventricular pressure and volume overload, diastolic dysfunction of mild degree, pseudonormal LV filling pattern, severely dilated right ventricle, moderately depressed LV systolic function, pulmonary hypertension with pulmonary artery systolic pressure in the 90s, IVC with no inspiratory collapse at that time. His white count still significantly elevated. He has been treated with antibiotics during post dialysis for his infection until recently. He has been on previous medication for pulmonary hypertension, although most recently those medications were discontinued. He recently saw Dr. Snider at [facility] who was supposed to start him on some new medications, although he has not done so recently for his significant pulmonary hypertension. Continue with intravenous antibiotics and pressor support as well as ventilator support, told to wean off as possible to treat his underlying sepsis. He mentally appears to be doing well. An echocardiogram will be ordered to evaluate his RA pressure, IVC size, although I doubt that he is volume depleted based on the fact that he has received some intravenous fluids last night. However, the patient's does indicate poor p.o. intake for few days before admission and some bouts of diarrhea, which is chronic, which may at least 08:20 degree of volume depletion. We doubt, however, that will be the case after resuscitation with fluids last night. Mauricio Bright M.D. DR: JOSE JOB#: [id number] CC:
[2017-04-17] MEDS: LORazepam Inj 2mg/ml 1ml IV PRN ×2 (10:19→22:10)
--- NOTE | 2017-04-17 12:07 | Neurology Progress Note ---
Interim History Interim History ROS Limited/Unobtainable: Yes Complaints: intubated Events: during HD noted patoxysmal facial twitching x1min, lethatgy Objective Physical Exam Last Vital Signs Date Time Temp Pulse Resp B/P (MAP) Pulse Ox O2 Delivery O2 Flow Rate FiO2 04/17/17 11:07 87 16 30 04/17/17 11:00 126/63 96 Mechanical Ventilator 04/17/17 09:50 97.7 04/17/17 08:00 30.0 Laboratory Tests Test 04/16/17 14:30 04/16/17 16:30 04/17/17 05:00 04/17/17 09:10 Amikacin Level Trough 31.1 ug/mL (10.0-15.0) H Reticulocyte Count 1.2 % (0.0-2.0) Haptoglobin 85 mg/dL (30-200) Fibrinogen 379 mg/dL (200-400) Iron Level 46 ug/dL (59-158) L Total Iron Binding Capacity 195 ug/dL (250-400) L Percent Iron Saturation 24 % (15-50) Unsaturated Iron Binding 149 ug/dL (112-346) Ferritin 183 ng/mL (10-230) Lactate Dehydrogenase 279 U/L (135-230) H Carcinoembryonic Antigen 10.9 ng/mL H Prostate Specific Antigen 7.0 ng/mL (< 4.5) H Vitamin B12 Level 832 pg/mL (211-946) Methylmalonic Acid Pending Folate Pending Thyroid Stimulating Hormone (TSH) 1.110 uIU/mL (0.300-4.500) Hepatitis A IgM Antibody Pending Hepatitis B Surface Antigen Pending Hepatitis B Core IgM Antibody Pending Hepatitis C Antibody Pending HIV (1&2) Antibody Rapid Negative (NEGATIVE) White Blood Count 14.1 K/UL (4.8-10.8) H Red Blood Count 2.29 M/UL (4.70-6.10) L Hemoglobin 8.3 G/DL (14.2-18.0) L Hematocrit 24.1 % (42.0-52.0) L Mean Corpuscular Volume 105 FL (80-99) H Mean Corpuscular Hemoglobin 36.1 PG (27.0-31.0) H Mean Corpuscular Hemoglobin Concent 34.3 G/DL (32.0-36.0) Red Cell Distribution Width 16.1 % (11.6-14.8) H Platelet Count 110 K/UL (150-450) L Mean Platelet Volume 6.6 FL (6.5-10.1) Neutrophils (%) (Auto) 74.2 % (45.0-75.0) Lymphocytes (%) (Auto) 15.4 % (20.0-45.0) L Monocytes (%) (Auto) 9.7 % (1.0-10.0) Eosinophils (%) (Auto) 0.2 % (0.0-3.0) Basophils (%) (Auto) 0.5 % (0.0-2.0) Sodium Level 135 mEQ/L (135-145) Potassium Level 3.1 mEQ/L (3.4-4.9) L Chloride Level 94 mEQ/L (98-107) L Carbon Dioxide Level 21 mEQ/L (20-30) Anion Gap 20 (5-15) H Blood Urea Nitrogen 52 mg/dL (7-23) H Creatinine 8.8 mg/dL (0.7-1.2) H Estimat Glomerular Filtration Rate mL/min (>60) Glucose Level 86 mg/dL (74-106) # Uric Acid 6.3 mg/dL (3.0-7.5) Calcium Level 8.5 mg/dL (8.6-10.2) L Phosphorus Level 3.4 mg/dL (2.5-4.8) Magnesium Level 1.6 mg/dL (1.7-2.5) L Total Bilirubin 0.4 mg/dL (0.0-1.2) Gamma Glutamyl Transpeptidase 68 U/L (8-61) H Aspartate Amino Transf (AST/SGOT) 27 U/L (5-40) Alanine Aminotransferase (ALT/SGPT) 12 U/L (3-41) Alkaline Phosphatase 124 U/L (40-129) Total Creatine Kinase 142 U/L (38-174) Troponin I < 0.30 ng/mL (<=0.30) C-Reactive Protein, Quantitative 9.2 mg/dL (< 0.5) H Pro-B-Type Natriuretic Peptide 14438 pg/mL (0-450) H Total Protein 5.2 g/dL (6.6-8.7) L Albumin 2.9 g/dL (3.5-5.2) L Globulin 2.3 g/dL Albumin/Globulin Ratio 1.2 (1.0-2.7) Triglycerides Level 183 mg/dL (< 150) H Cholesterol Level 112 mg/dL (< 200) LDL Cholesterol 36 mg/dL (60-99) L HDL Cholesterol 39 mg/dL (> 60) Cholesterol/HDL Ratio 2.9 (3.3-4.4) L Lipase 117 U/L (< 60) H Arterial Blood pH 7.360 (7.350-7.450) Arterial Blood Partial Pressure CO2 36.6 mmHg (35.0-45.0) Arterial Blood Partial Pressure O2 105.8 mmHg (75.0-100.0) H Arterial Blood HCO3 20.5 mmol/L (22.0-26.0) L Arterial Blood Oxygen Saturation 96.8 % (92.0-98.0) Arterial Blood Base Excess -4.4 Mike Test Positive General: well developed, no acute distress, other - intubated now on HD Head: normocophalic, atraumatic Neck: no rigidity Neurologic Exam Mental Status: awake, other - sl confused Speech: other Language: no aphasia Cranial Nerve II: fundus normal, visual snell, no papilledema Cranial Nerves III, IV, : PERRLA, EOMI, pupils Cranial Nerve V: normal facial sensations, temporales function normal, masseters function normal, pterygoids function normal Cranial Nerve VII: no facial asymmetry, normal facial expressions Cranial Nerve VIII: normal hearing, no nystagmus Cranial Nerve IX: normal palate elevation, gag response Cranial Nerve X: no voice hoarseness Cranial Nerve XI: SCM symmetric, trapezii function normal Cranial Nerve XII: tongue midline, no tongue atrophy/fasciculations Motor System: no involuntary movement, no muscle wasting Sensory: normal pinprick Deep Tendon Reflexes: 0 bicep (L), 0 bicep (R), 0 tricep (L), 0 tricep (R), 0 brachioradialis (L), 0 brachioradialis (R), 0 knee (L), 0 knee (R), 0 ankle (L) , 0 ankle (R) Reflexes: mute plantar (L), mute plantar (R) Impression/Recommendations Problems: (1) Myasthenia gravis (2) Acute respiratory failure (3) ESRD (end stage renal disease) on dialysis (4) single sz episode. Status: unchanged Recommendations #[id number] ativan 2mg q2hr prn sz eeg JENNY WHITE Apr 17, 2017 12:07
--- NOTE | 2017-04-17 14:50 | Infectious Diseases Prog Note ---
Assessment/Plan Assessment/Plan IMPRESSION: 1) Severe sepsis and septic shock with hypotension and leukocytosis 2) Other acute respiratory failure 3) r/o line infection: HD and PD cath. r/o indwelling peritoneal fluid. 4) leukocytosis 5) afebrile 6) chronic anemia 7) ESRD 8) severe pulmonary HTN--seen on [id number] TTE 9) lactic acidosis RECOMMENDATION: --Continue IV vancomycin, amikacin, and aztreonam empirically --f/u sputum cx, prelim is growing a GNR, although imaging hasn't confirmed pneumonia --f/u blood cx --f/u urine cx --abd u/s. if significant indwelling fluid, should be sampled for gram stain, cell count, and culture to r/o PD associated peritonitis Subjective ROS Limited/Unobtainable: Yes Allergies: Coded Allergies: GERTRUDIS INHIBITORS (Unverified Allergy, Unknown, 04/15/17) LEVOFLOXACIN (Unverified Allergy, Unknown, 04/15/17) PENICILLINS (Verified Allergy, Unknown, 04/15/17) Objective Vital Signs Last 24 Hour Vital Signs Date Time Temp Pulse Resp B/P (MAP) Pulse Ox O2 Delivery O2 Flow Rate FiO2 04/17/17 13:43 88 22 30 04/17/17 13:11 Mechanical Ventilator 30 04/17/17 13:10 97.0 89 113/56 Mechanical Ventilator 30 04/17/17 12:44 85 18 30 04/17/17 12:00 97.9 90 17 101/52 98 Mechanical Ventilator 30 04/17/17 12:00 30.0 04/17/17 12:00 84 04/17/17 11:07 87 16 30 04/17/17 11:00 86 17 126/63 96 Mechanical Ventilator 30 04/17/17 10:15 87 16 102/41 97 Mechanical Ventilator 30 04/17/17 10:00 81 18 127/56 97 Mechanical Ventilator 30 04/17/17 09:50 97.7 97 130/78 Mechanical Ventilator 30 04/17/17 09:45 Mechanical Ventilator 30 04/17/17 09:29 80 20 30 04/17/17 09:00 80 21 141/87 99 Mechanical Ventilator 30 04/17/17 08:00 97.8 77 21 130/77 100 Mechanical Ventilator 30 04/17/17 08:00 30.0 04/17/17 08:00 79 04/17/17 07:29 74 18 30 04/17/17 07:00 78 21 148/97 99 Mechanical Ventilator 30 04/17/17 06:00 84 21 150/71 99 Mechanical Ventilator 30 04/17/17 05:25 78 23 30 04/17/17 05:00 81 21 151/80 97 Mechanical Ventilator 30 04/17/17 04:00 30.0 04/17/17 04:00 80 04/17/17 04:00 97.7 80 23 115/60 99 Mechanical Ventilator 30 04/17/17 03:00 80 16 106/59 99 Mechanical Ventilator 30 04/17/17 02:32 79 16 30 04/17/17 02:00 76 16 89/49 99 Mechanical Ventilator 30 04/17/17 01:30 82 16 30 04/17/17 01:00 81 16 98/53 99 Mechanical Ventilator 30 04/17/17 00:00 30.0 04/17/17 00:00 83 04/17/17 00:00 98.4 78 16 106/54 99 Mechanical Ventilator 30 04/16/17 23:30 82 16 30 04/16/17 23:00 76 16 105/52 99 Mechanical Ventilator 30 04/16/17 22:15 101/49 04/16/17 22:00 84 16 101/49 97 Mechanical Ventilator 30 04/16/17 21:30 84 16 30 04/16/17 21:00 82 17 139/74 99 Mechanical Ventilator 30 04/16/17 20:00 83 04/16/17 20:00 30.0 04/16/17 20:00 80 16 112/60 98 Mechanical Ventilator 30 04/16/17 19:30 82 20 30 04/16/17 19:00 98.1 86 19 102/55 96 Mechanical Ventilator 30 04/16/17 18:00 80 17 101/56 98 Mechanical Ventilator 30 04/16/17 17:29 98 18 30 04/16/17 17:00 82 19 89/46 100 Mechanical Ventilator 30 04/16/17 16:00 30.0 04/16/17 16:00 82 04/16/17 16:00 98.6 81 19 107/47 99 Mechanical Ventilator 30 04/16/17 15:30 82 19 93/51 100 Mechanical Ventilator 30 04/16/17 15:24 82 20 30 04/16/17 15:00 82 19 99/61 100 Mechanical Ventilator 30 Height (Feet): 5 Height (Inches): 8.00 Weight (Pounds): 144 Objective GENERAL: The patient is awake, alert, and communicated with nodding. Denies abdominal pain. VITAL SIGNS: Pulse 85, blood pressure 120/49, and temperature 99.3 degrees. HEAD AND NECK: Orally intubated. HEART: Normal rate. 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 Have PermCath in the right side of the chest. LUNGS: Clear. ABDOMEN: Soft. There is a peritoneal dialysis. EXTREMITIES: No edema. He has a right femoral line. Microbiology Date/Time Source Procedure Growth Status 04/15/17 20:00 Blood Blood Culture - Preliminary NO GROWTH AFTER 24 HOURS Resulted 04/15/17 19:47 Blood Blood Culture - Preliminary NO GROWTH AFTER 24 HOURS Resulted 04/16/17 04:00 Sputum Gram Stain - Final Resulted 04/16/17 04:00 Sputum Culture - Preliminary Gram Negative Bacillus 1 Usual Upper Respiratory Kary Resulted Laboratory Tests Test 04/16/17 16:30 04/17/17 05:00 04/17/17 09:10 Reticulocyte Count 1.2 % (0.0-2.0) Haptoglobin 85 mg/dL (30-200) Fibrinogen 379 mg/dL (200-400) Iron Level 46 ug/dL (59-158) L Total Iron Binding Capacity 195 ug/dL (250-400) L Percent Iron Saturation 24 % (15-50) Unsaturated Iron Binding 149 ug/dL (112-346) Ferritin 183 ng/mL (10-230) Lactate Dehydrogenase 279 U/L (135-230) H Carcinoembryonic Antigen 10.9 ng/mL H Prostate Specific Antigen 7.0 ng/mL (< 4.5) H Vitamin B12 Level 832 pg/mL (211-946) Methylmalonic Acid Pending Folate Pending Thyroid Stimulating Hormone (TSH) 1.110 uIU/mL (0.300-4.500) Hepatitis A IgM Antibody Negative (Negative) Hepatitis B Surface Antigen Negative (Negative) Hepatitis B Core IgM Antibody Negative (Negative) Hepatitis C Antibody <0.1 s/co ratio HIV (1&2) Antibody Rapid Negative (NEGATIVE) White Blood Count 14.1 K/UL (4.8-10.8) H Red Blood Count 2.29 M/UL (4.70-6.10) L Hemoglobin 8.3 G/DL (14.2-18.0) L Hematocrit 24.1 % (42.0-52.0) L Mean Corpuscular Volume 105 FL (80-99) H Mean Corpuscular Hemoglobin 36.1 PG (27.0-31.0) H Mean Corpuscular Hemoglobin Concent 34.3 G/DL (32.0-36.0) Red Cell Distribution Width 16.1 % (11.6-14.8) H Platelet Count 110 K/UL (150-450) L Mean Platelet Volume 6.6 FL (6.5-10.1) Neutrophils (%) (Auto) 74.2 % (45.0-75.0) Lymphocytes (%) (Auto) 15.4 % (20.0-45.0) L Monocytes (%) (Auto) 9.7 % (1.0-10.0) Eosinophils (%) (Auto) 0.2 % (0.0-3.0) Basophils (%) (Auto) 0.5 % (0.0-2.0) Sodium Level 135 mEQ/L (135-145) Potassium Level 3.1 mEQ/L (3.4-4.9) L Chloride Level 94 mEQ/L (98-107) L Carbon Dioxide Level 21 mEQ/L (20-30) Anion Gap 20 (5-15) H Blood Urea Nitrogen 52 mg/dL (7-23) H Creatinine 8.8 mg/dL (0.7-1.2) H Estimat Glomerular Filtration Rate mL/min (>60) Glucose Level 86 mg/dL (74-106) # Uric Acid 6.3 mg/dL (3.0-7.5) Calcium Level 8.5 mg/dL (8.6-10.2) L Phosphorus Level 3.4 mg/dL (2.5-4.8) Magnesium Level 1.6 mg/dL (1.7-2.5) L Total Bilirubin 0.4 mg/dL (0.0-1.2) Gamma Glutamyl Transpeptidase 68 U/L (8-61) H Aspartate Amino Transf (AST/SGOT) 27 U/L (5-40) Alanine Aminotransferase (ALT/SGPT) 12 U/L (3-41) Alkaline Phosphatase 124 U/L (40-129) Total Creatine Kinase 142 U/L (38-174) Troponin I < 0.30 ng/mL (<=0.30) C-Reactive Protein, Quantitative 9.2 mg/dL (< 0.5) H Pro-B-Type Natriuretic Peptide 23274 pg/mL (0-450) H Total Protein 5.2 g/dL (6.6-8.7) L Albumin 2.9 g/dL (3.5-5.2) L Globulin 2.3 g/dL Albumin/Globulin Ratio 1.2 (1.0-2.7) Triglycerides Level 183 mg/dL (< 150) H Cholesterol Level 112 mg/dL (< 200) LDL Cholesterol 36 mg/dL (60-99) L HDL Cholesterol 39 mg/dL (> 60) Cholesterol/HDL Ratio 2.9 (3.3-4.4) L Lipase 117 U/L (< 60) H Arterial Blood pH 7.360 (7.350-7.450) Arterial Blood Partial Pressure CO2 36.6 mmHg (35.0-45.0) Arterial Blood Partial Pressure O2 105.8 mmHg (75.0-100.0) H Arterial Blood HCO3 20.5 mmol/L (22.0-26.0) L Arterial Blood Oxygen Saturation 96.8 % (92.0-98.0) Arterial Blood Base Excess -4.4 Mike Test Positive Current Medications Medications (Trade) Dose Ordered Sig/Rossana Route PRN Reason Start Time Stop Time Status Last Admin Dose Admin Acetaminophen (Tylenol) 650 mg Q4H PRN ORAL fever 04/15/17 22:15 05/15/17 22:14 Albuterol/ Ipratropium (DuoNeb 0.5-3(2.5)mg/3ml) 3 ml EVERY 4 HOURS PRN HHN Shortness of Breath 04/15/17 22:15 04/20/17 22:14 Allopurinol (Zyloprim) 100 mg DAILY ORAL 04/16/17 09:00 05/16/17 08:59 04/17/17 08:54 Amikacin Protocol (Amikacin pharmacy to dose) 1 ea DAILY PRN MISC PHARM 04/16/17 06:00 05/16/17 05:59 Atorvastatin Calcium (Lipitor) 10 mg BEDTIME ORAL 04/16/17 21:00 05/16/17 20:59 04/16/17 20:51 Aztreonam 0.5 gm/ Dextrose 55 ml @ 110 mls/hr Q12HR IVPB 04/16/17 22:00 04/23/17 21:59 04/17/17 08:54 Chlorhexidine Gluconate (Lise-Hex 2%) 1 applic BEDTIME TOPIC 04/16/17 21:00 05/16/17 20:59 04/16/17 20:52 Dextrose (Dextrose 50%) STAT PRN IV Hypoglycemia 04/16/17 07:35 05/16/17 07:34 Insulin Aspart (NovoLOG) EVERY 6 HOURS SUBQ 04/16/17 12:00 05/16/17 11:59 04/16/17 17:54 Levothyroxine Sodium (Synthroid) 50 mcg DAILY@0630 ORAL 04/16/17 06:30 05/16/17 06:29 04/17/17 05:53 Lorazepam (Ativan 2mg/ml 1ml) 2 mg Q2H PRN IV For Anxiety 04/17/17 10:15 04/24/17 10:14 04/17/17 10:19 Morphine Sulfate (Morphine Sulfate) 4 mg EVERY 4 HOURS PRN IVP Severe Pain (Pain Scale 7-10) 04/15/17 22:15 04/22/17 22:14 04/16/17 19:44 Norepinephrine Bitartrate 4 mg/ Dextrose 254 ml @ 0 mls/hr Q24H IV 04/15/17 22:15 05/15/17 22:14 04/15/17 23:05 Ondansetron HCl (Zofran) 4 mg Q6H PRN IVP Nausea & Vomiting 04/15/17 22:15 05/15/17 22:14 Paroxetine HCl (Paxil) 10 mg DAILY ORAL 04/16/17 11:00 05/16/17 10:59 04/17/17 08:54 Polyethylene Glycol (Miralax) 17 gm DAILYPRN PRN ORAL Constipation 04/15/17 22:15 05/15/17 22:14 Pyridostigmine Pruden (Mestinon) 60 mg Q8HR ORAL 04/16/17 22:00 05/16/17 21:59 04/17/17 05:53 Vancomycin HCl (Vanco rx to dose) 1 ea DAILY MISC 04/16/17 09:00 05/16/17 08:59 04/17/17 08:54 Tai Moraes M.D. Apr 17, 2017 14:49
[2017-04-17 15:24] LABS: ABG PCO2 52.1 mmHg (35.0-45.0)
[2017-04-17 15:25] LABS: ABG ALLEN TEST POSITIVE; ABG BASE EXCESS 2.4
[2017-04-17] MEDS ORDERED: NS 275ml ONE (16:19)
--- NOTE | 2017-04-17 20:24 | General Progress Note ---
Assessment/Plan Assessment/Plan A/P # Anemia --> follow up with Dr. Shah at [facility] # Severe sepsis with leukocytosis # Thrombocytopenia # ARF # ESRD Subjective Allergies: Coded Allergies: GERTRUDIS INHIBITORS (Unverified Allergy, Unknown, 04/15/17) LEVOFLOXACIN (Unverified Allergy, Unknown, 04/15/17) PENICILLINS (Verified Allergy, Unknown, 04/15/17) Subjective hd today Objective Last 24 Hour Vital Signs Date Time Temp Pulse Resp B/P (MAP) Pulse Ox O2 Delivery O2 Flow Rate FiO2 04/17/17 20:00 98.5 90 21 102/51 98 Mechanical Ventilator 30 04/17/17 20:00 90 04/17/17 20:00 30 04/17/17 19:05 96 27 30 04/17/17 19:00 94 28 113/83 100 Mechanical Ventilator 30 04/17/17 18:00 99 28 128/84 100 Mechanical Ventilator 30 04/17/17 17:02 93 24 30 04/17/17 17:00 87 28 124/53 93 Mechanical Ventilator 30 04/17/17 16:00 98 04/17/17 16:00 98.0 91 150/56 Mechanical Ventilator 30 04/17/17 15:29 30 04/17/17 15:00 95 27 135/53 96 Mechanical Ventilator 30 04/17/17 14:38 91 27 30 04/17/17 14:00 91 27 128/58 96 Mechanical Ventilator 30 04/17/17 13:43 88 22 30 04/17/17 13:11 Mechanical Ventilator 30 04/17/17 13:10 97.0 89 113/56 Mechanical Ventilator 30 04/17/17 12:44 85 18 30 04/17/17 12:00 97.9 90 17 101/52 98 Mechanical Ventilator 30 04/17/17 12:00 30.0 04/17/17 12:00 84 04/17/17 11:07 87 16 30 04/17/17 11:00 86 17 126/63 96 Mechanical Ventilator 30 04/17/17 10:15 87 16 102/41 97 Mechanical Ventilator 30 04/17/17 10:00 81 18 127/56 97 Mechanical Ventilator 30 04/17/17 09:50 97.7 97 130/78 Mechanical Ventilator 30 04/17/17 09:45 Mechanical Ventilator 30 04/17/17 09:29 80 20 30 04/17/17 09:00 80 21 141/87 99 Mechanical Ventilator 30 04/17/17 08:00 97.8 77 21 130/77 100 Mechanical Ventilator 30 04/17/17 08:00 30.0 04/17/17 08:00 79 04/17/17 07:29 74 18 30 04/17/17 07:00 78 21 148/97 99 Mechanical Ventilator 30 04/17/17 06:00 84 21 150/71 99 Mechanical Ventilator 30 04/17/17 05:25 78 23 30 04/17/17 05:00 81 21 151/80 97 Mechanical Ventilator 30 04/17/17 04:00 30.0 04/17/17 04:00 80 04/17/17 04:00 97.7 80 23 115/60 99 Mechanical Ventilator 30 04/17/17 03:00 80 16 106/59 99 Mechanical Ventilator 30 04/17/17 02:32 79 16 30 04/17/17 02:00 76 16 89/49 99 Mechanical Ventilator 30 04/17/17 01:30 82 16 30 04/17/17 01:00 81 16 98/53 99 Mechanical Ventilator 30 04/17/17 00:00 30.0 04/17/17 00:00 83 04/17/17 00:00 98.4 78 16 106/54 99 Mechanical Ventilator 30 04/16/17 23:30 82 16 30 04/16/17 23:00 76 16 105/52 99 Mechanical Ventilator 30 04/16/17 22:15 101/49 04/16/17 22:00 84 16 101/49 97 Mechanical Ventilator 30 04/16/17 21:30 84 16 30 04/16/17 21:00 82 17 139/74 99 Mechanical Ventilator 30 Intake and Output 04/17/17 04/18/17 19:00 07:00 Intake Total 255 ml 0 ml Output Total 1800 ml 0 ml Balance -1545 ml 0 ml Intake Oral 0 ml 0 ml Free Water 200 ml IV Total 55 ml Output Urine Total 0 ml 0 ml Hemodialysis UF 1800 ml Laboratory Tests 04/17/17 05:00: White Blood Count 14.1H, Red Blood Count 2.29L, Hemoglobin 8.3L, Hematocrit 24.1L, Mean Corpuscular Volume 105H, Mean Corpuscular Hemoglobin 36.1H, Mean Corpuscular Hemoglobin Concent 34.3, Red Cell Distribution Width 16.1H, Platelet Count 110L, Mean Platelet Volume 6.6, Neutrophils (%) (Auto) 74.2, Lymphocytes (%) (Auto) 15.4L, Monocytes (%) (Auto) 9.7, Eosinophils (%) (Auto) 0.2, Basophils (%) (Auto) 0.5, Sodium Level 135, Potassium Level 3.1L, Chloride Level 94L, Carbon Dioxide Level 21, Anion Gap 20H, Blood Urea Nitrogen 52H, Creatinine 8.8H, Estimat Glomerular Filtration Rate , Glucose Level 86#, Uric Acid 6.3, Calcium Level 8.5L, Phosphorus Level 3.4, Magnesium Level 1.6L, Total Bilirubin 0.4, Gamma Glutamyl Transpeptidase 68H, Aspartate Amino Transf (AST/ SGOT) 27, Alanine Aminotransferase (ALT/SGPT) 12, Alkaline Phosphatase 124, Total Creatine Kinase 142, Troponin I < 0.30, C-Reactive Protein, Quantitative 9.2H, Pro-B-Type Natriuretic Peptide 58862H, Total Protein 5.2L, Albumin 2.9L, Globulin 2.3, Albumin/Globulin Ratio 1.2, Triglycerides Level 183H, Cholesterol Level 112, LDL Cholesterol 36L, HDL Cholesterol 39, Cholesterol/HDL Ratio 2.9L, Lipase 117H 04/17/17 09:10: Arterial Blood pH 7.360, Arterial Blood Partial Pressure CO2 36.6, Arterial Blood Partial Pressure O2 105.8H, Arterial Blood HCO3 20.5L, Arterial Blood Oxygen Saturation 96.8, Arterial Blood Base Excess -4.4, Mike Test Positive 04/17/17 15:13: Arterial Blood pH 7.356, Arterial Blood Partial Pressure CO2 52.1H, Arterial Blood Partial Pressure O2 64.5L, Arterial Blood HCO3 28.5H, Arterial Blood Oxygen Saturation 90.0L, Arterial Blood Base Excess 2.4, Mike Test Positive Height (Feet): 5 Height (Inches): 8.00 Weight (Pounds): 144 Davey Olsen Apr 17, 2017 20:24
[2017-04-17] MEDS: Dyna-Hex 2% Top Sol 8oz TOPIC SCH (20:46)
[2017-04-18] VITALS (25 sets, daily range): BP systolic 96–168; BP diastolic 46–78
[2017-04-18] MEDS: LORazepam Inj 2mg/ml 1ml IV PRN ×2 (01:57→21:02)
[2017-04-18 05:31] LABS: BASOPHILS % (AUTO) 0.5 % (0.0-2.0); EOSINOPHILS % (AUTO) 0.2 % (0.0-3.0); LYMPHOCYTES % (AUTO) 15.6 % (20.0-45.0); MEAN CORPUSCULAR HGB CONC 33.3 G/DL (32.0-36.0); MEAN CORPUSCULAR VOLUME 108 FL (80-99); MEAN PLATELET VOLUME 9.6 FL (6.5-10.1); MONOCYTES % (AUTO) 8.9 % (1.0-10.0); NEUTROPHILS % (AUTO) 74.7 % (45.0-75.0); PLATELET COUNT 114 K/UL (150-450); RED BLOOD COUNT 2.44 M/UL (4.70-6.10); RED CELL DISTRIBUTION WIDTH 16.3 % (11.6-14.8); WHITE BLOOD COUNT 13.1 K/UL (4.8-10.8)
[2017-04-18] MEDS: Pyridostigmine 60mg tab ORAL SCH ×3 (05:51→21:36)
[2017-04-18] MEDS: NovoLOG Insulin Flexpen SUBQ SCH ×5 (05:52→23:48)
[2017-04-18 05:57] LABS: ALANINE AMINOTRANSFERASE 13 U/L (3-41); ANION GAP 15 (5-15); ASPARTATE AMINO TRANSFERASE 25 U/L (5-40); CALCIUM 8.8 mg/dL (8.6-10.2); CARBON DIOXIDE 29 mEQ/L (20-30); CHLORIDE 95 mEQ/L (98-107); CREATININE 6.8 mg/dL (0.7-1.2); CRP QUANT 10.7 mg/dL (< 0.5); HEMOLYSIS 2; MAGNESIUM 1.9 mg/dL (1.7-2.5); POTASSIUM 3.4 mEQ/L (3.4-4.9); SODIUM 139 mEQ/L (135-145); TOTAL PROTEIN 5.6 g/dL (6.6-8.7); URIC ACID 5.1 mg/dL (3.0-7.5)
[2017-04-18] MEDS ORDERED: Vancomycin 1 GM in D5W 275 ML IVPB ONE (06:30)
[2017-04-18] MEDS ORDERED: Vancomycin 1gm inj IVPB ONE ×2 (06:43→06:52)
[2017-04-18 07:57] LABS: ABG ALLEN TEST POSITIVE; ABG BASE EXCESS 0.8; ABG PCO2 47.9 mmHg (35.0-45.0)
[2017-04-18] MEDS: Allopurinol 100mg Tab ORAL SCH (09:14)
[2017-04-18] MEDS: PARoxetine 10mg tab ORAL SCH (09:14)
[2017-04-18] MEDS: Aztreonam 0.5gm/D5W 55ml IVPB SCH ×4 (09:14→21:37)
--- NOTE | 2017-04-18 10:37 | Diagnostic Imaging Report ---
Indication:Abdominal pain Technique: Grayscale and duplex Doppler imaging of the abdomen performed. Comparison: None Findings: The liver demonstrates a coarse and echotexture and is heterogeneous. Findings suspicious for chronic liver disease/cirrhosis. There is a small amount of ascites. Patient is on peritoneal dialysis. A peritoneal dialysis catheter is noted. The kidneys are echogenic consistent with medical renal disease. There are multiple cysts noted. The spleen is enlarged measuring 14 cm. The pancreas is grossly unremarkable. Aorta and IVC are poorly seen but grossly unremarkable as visualized. Impression: Mild ascites. Peritoneal dialysis catheter noted. Splenomegaly. Suspected chronic liver disease. Please correlate clinically. 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
--- NOTE | 2017-04-18 11:09 | Pulmonolgy Critical Care Note ---
Critical Care - Asmt/Plan Problems: (1) Acute respiratory failure (2) Septic shock (3) ESRD (end stage renal disease) on dialysis (4) Myasthenia gravis Respiratory: monitor respiratory rate Cardiac: start pressors Renal: F/U I&O Infectious Disease: check cultures, continue antibiotics Gastrointestinal: continue feedings/current rate Endocrine: monitor blood sugar, continue sliding scale insulin Hematologic: monitor H/H, transfuse if hgb<8.5 Neurologic: PRN Ativan, keep patient comfortable Prophylaxis: Protonix Notes Reviewed: whipped topping mixer, cardio, renal Discussed with: nurses, consultants, corrections caseworkernetwork program manager - Objective Last 24 Hour Vital Signs Date Time Temp Pulse Resp B/P (MAP) Pulse Ox O2 Delivery O2 Flow Rate FiO2 04/18/17 10:00 81 19 132/73 100 Mechanical Ventilator 30 04/18/17 09:38 30 04/18/17 09:01 80 28 30 04/18/17 09:00 97.7 78 18 140/73 99 Mechanical Ventilator 30 04/18/17 08:00 76 04/18/17 08:00 74 16 124/67 98 Mechanical Ventilator 30 04/18/17 07:08 30 04/18/17 07:00 120 14 30 04/18/17 07:00 80 13 134/66 98 Mechanical Ventilator 30 04/18/17 06:00 80 13 121/61 99 Mechanical Ventilator 30 04/18/17 05:22 78 14 30 04/18/17 05:00 82 20 119/65 99 Mechanical Ventilator 30 04/18/17 04:00 30 04/18/17 04:00 75 04/18/17 04:00 97.8 75 14 97/48 99 Mechanical Ventilator 30 04/18/17 03:15 81 13 30 04/18/17 03:00 81 16 96/46 98 Mechanical Ventilator 30 04/18/17 02:00 83 27 142/55 95 Mechanical Ventilator 30 04/18/17 01:04 83 20 30 04/18/17 01:00 79 20 111/48 97 Mechanical Ventilator 30 04/18/17 00:00 30 04/18/17 00:00 98.4 83 23 145/53 98 Mechanical Ventilator 30 04/18/17 00:00 83 04/17/17 23:13 84 21 30 04/17/17 23:00 85 19 87/48 95 Mechanical Ventilator 30 04/17/17 22:00 86 22 117/48 97 Mechanical Ventilator 30 04/17/17 21:24 141/57 04/17/17 21:09 85 17 30 04/17/17 21:00 88 18 141/57 96 Mechanical Ventilator 30 04/17/17 20:00 98.5 90 21 102/51 98 Mechanical Ventilator 30 04/17/17 20:00 90 04/17/17 20:00 30 04/17/17 19:05 96 27 30 04/17/17 19:00 94 28 113/83 100 Mechanical Ventilator 30 04/17/17 18:00 99 28 128/84 100 Mechanical Ventilator 30 04/17/17 17:02 93 24 30 04/17/17 17:00 87 28 124/53 93 Mechanical Ventilator 30 04/17/17 16:00 98 04/17/17 16:00 98.0 91 150/56 Mechanical Ventilator 30 04/17/17 15:29 30 04/17/17 15:00 95 27 135/53 96 Mechanical Ventilator 30 04/17/17 14:38 91 27 30 04/17/17 14:00 91 27 128/58 96 Mechanical Ventilator 30 04/17/17 13:43 88 22 30 04/17/17 13:11 Mechanical Ventilator 30 04/17/17 13:10 97.0 89 113/56 Mechanical Ventilator 30 04/17/17 12:44 85 18 30 04/17/17 12:00 97.9 90 17 101/52 98 Mechanical Ventilator 30 04/17/17 12:00 30.0 04/17/17 12:00 84 04/17/17 11:07 87 16 30 Status: awake HEENT: atraumatic Neck: full ROM Lungs: clear Heart: HR/BP stable, HR/BP unstable Abdomen: soft, non-tender Extremities: no C/C/E, edema Decubiti: location Micro: Microbiology Date/Time Source Procedure Growth Status 04/15/17 20:00 Blood Blood Culture - Preliminary NO GROWTH AFTER 48 HOURS Resulted 04/15/17 19:47 Blood Blood Culture - Preliminary NO GROWTH AFTER 48 HOURS Resulted 04/16/17 04:00 Sputum Gram Stain - Final Complete 04/16/17 04:00 Sputum Culture - Final Pseudomonas Aeruginosa Usual Upper Respiratory Kary Complete 04/15/17 19:17 Nasal Nares MRSA Culture - Final NO METHICILLIN RESISTANT STAPH AUREUS... Complete 04/15/17 19:17 Rectum VRE Culture - Final NO VANCOMYCIN RESISTANT ENTEROCOCCUS ... Complete Accucheck: 97 Critical Care - Subjective ROS Limited/Unobtainable: Yes - 3 ICU Day: 3 Interval Events: pt wants to get extubated now. he wants to be DNR. FI02: 30 Vent Support Breath Rate: 16 Vent Support Mode: CPAP Vent Tidal Volume: 600 Sputum Amount: Moderate PIP: 28 I&O: Intake and Output 04/18/17 04/19/17 19:00 07:00 Intake Total 60 ml Output Total 0 ml Balance 60 ml Intake Oral 0 ml Free Water 30 ml Other 30 ml Output Urine Total 0 ml CXR: Clear, ET tube in place ET-Tube: 7.5 ET Position: 23 Labs: Laboratory Tests Test 04/17/17 15:13 04/18/17 04:00 04/18/17 07:46 Arterial Blood pH 7.356 (7.350-7.450) 7.360 (7.350-7.450) Arterial Blood Partial Pressure CO2 52.1 mmHg (35.0-45.0) H 47.9 mmHg (35.0-45.0) H Arterial Blood Partial Pressure O2 64.5 mmHg (75.0-100.0) L 101.6 mmHg (75.0-100.0) H Arterial Blood HCO3 28.5 mmol/L (22.0-26.0) H 26.5 mmol/L (22.0-26.0) H Arterial Blood Oxygen Saturation 90.0 % (92.0-98.0) L 96.7 % (92.0-98.0) Arterial Blood Base Excess 2.4 0.8 Mike Test Positive Positive White Blood Count 13.1 K/UL (4.8-10.8) H Red Blood Count 2.44 M/UL (4.70-6.10) L Hemoglobin 8.8 G/DL (14.2-18.0) L Hematocrit 26.4 % (42.0-52.0) L Mean Corpuscular Volume 108 FL (80-99) H Mean Corpuscular Hemoglobin 36.0 PG (27.0-31.0) H Mean Corpuscular Hemoglobin Concent 33.3 G/DL (32.0-36.0) Red Cell Distribution Width 16.3 % (11.6-14.8) H Platelet Count 114 K/UL (150-450) L Mean Platelet Volume 9.6 FL (6.5-10.1) Neutrophils (%) (Auto) 74.7 % (45.0-75.0) Lymphocytes (%) (Auto) 15.6 % (20.0-45.0) L Monocytes (%) (Auto) 8.9 % (1.0-10.0) Eosinophils (%) (Auto) 0.2 % (0.0-3.0) Basophils (%) (Auto) 0.5 % (0.0-2.0) Sodium Level 139 mEQ/L (135-145) Potassium Level 3.4 mEQ/L (3.4-4.9) Chloride Level 95 mEQ/L (98-107) L Carbon Dioxide Level 29 mEQ/L (20-30) Anion Gap 15 (5-15) Blood Urea Nitrogen 38 mg/dL (7-23) H Creatinine 6.8 mg/dL (0.7-1.2) H Estimat Glomerular Filtration Rate mL/min (>60) Glucose Level 100 mg/dL (74-106) Uric Acid 5.1 mg/dL (3.0-7.5) Calcium Level 8.8 mg/dL (8.6-10.2) Phosphorus Level 5.0 mg/dL (2.5-4.8) H Magnesium Level 1.9 mg/dL (1.7-2.5) Total Bilirubin 0.3 mg/dL (0.0-1.2) Aspartate Amino Transf (AST/SGOT) 25 U/L (5-40) Alanine Aminotransferase (ALT/SGPT) 13 U/L (3-41) Alkaline Phosphatase 134 U/L (40-129) H C-Reactive Protein, Quantitative 10.7 mg/dL (< 0.5) H Pro-B-Type Natriuretic Peptide 37718 pg/mL (0-450) H Total Protein 5.6 g/dL (6.6-8.7) L Albumin 2.9 g/dL (3.5-5.2) L Globulin 2.7 g/dL Albumin/Globulin Ratio 1.0 (1.0-2.7) Random Amikacin Level 13.2 ug/mL Vancomycin Level Trough 12.4 ug/mL (5.0-12.0) H QUYNH CARDONA Apr 18, 2017 11:09
--- NOTE | 2017-04-18 11:32 | General Progress Note ---
Assessment/Plan Status: stable - from renal stand point Status Narrative remains intubated Assessment/Plan ESRD : On Hemo and Peritoneal dialysis Septic shock , Low BP stablizing PAF S/p I and D infra umbilcal superficial MSSA abscess. CHF, PHT. 90's hypokinesis Anemia. MDS? Plan: Hemodynamically stable HD again in am- Optimize cardiac and Pulm status, weaning as possible monitor renal parameters per orders Subjective ROS Limited/Unobtainable: Yes Allergies: Coded Allergies: GERTRUDIS INHIBITORS (Unverified Allergy, Unknown, 04/15/17) LEVOFLOXACIN (Unverified Allergy, Unknown, 04/15/17) PENICILLINS (Verified Allergy, Unknown, 04/15/17) Objective Last 24 Hour Vital Signs Date Time Temp Pulse Resp B/P (MAP) Pulse Ox O2 Delivery O2 Flow Rate FiO2 04/18/17 11:05 73 26 04/18/17 11:00 78 22 135/62 100 Mechanical Ventilator 30 04/18/17 10:00 81 19 132/73 100 Mechanical Ventilator 30 04/18/17 09:38 30 04/18/17 09:01 80 28 30 04/18/17 09:00 97.7 78 18 140/73 99 Mechanical Ventilator 30 04/18/17 08:00 76 04/18/17 08:00 74 16 124/67 98 Mechanical Ventilator 30 04/18/17 07:08 30 04/18/17 07:00 120 14 30 04/18/17 07:00 80 13 134/66 98 Mechanical Ventilator 30 04/18/17 06:00 80 13 121/61 99 Mechanical Ventilator 30 04/18/17 05:22 78 14 30 04/18/17 05:00 82 20 119/65 99 Mechanical Ventilator 30 04/18/17 04:00 30 04/18/17 04:00 75 04/18/17 04:00 97.8 75 14 97/48 99 Mechanical Ventilator 04/18/17 03:15 81 13 30 04/18/17 03:00 81 16 96/46 98 Mechanical Ventilator 30 04/18/17 02:00 83 27 142/55 95 Mechanical Ventilator 30 04/18/17 01:04 83 20 30 04/18/17 01:00 79 20 111/48 97 Mechanical Ventilator 30 04/18/17 00:00 30 04/18/17 00:00 98.4 83 23 145/53 98 Mechanical Ventilator 30 04/18/17 00:00 83 04/17/17 23:13 84 21 30 04/17/17 23:00 85 19 87/48 95 Mechanical Ventilator 30 04/17/17 22:00 86 22 117/48 97 Mechanical Ventilator 30 04/17/17 21:24 141/57 04/17/17 21:09 85 17 30 04/17/17 21:00 88 18 141/57 96 Mechanical Ventilator 30 04/17/17 20:00 98.5 90 21 102/51 98 Mechanical Ventilator 30 04/17/17 20:00 90 04/17/17 20:00 30 04/17/17 19:05 96 27 30 04/17/17 19:00 94 28 113/83 100 Mechanical Ventilator 30 04/17/17 18:00 99 28 128/84 100 Mechanical Ventilator 30 04/17/17 17:02 93 24 30 04/17/17 17:00 87 28 124/53 93 Mechanical Ventilator 30 04/17/17 16:00 98 04/17/17 16:00 98.0 91 150/56 Mechanical Ventilator 30 04/17/17 15:29 30 04/17/17 15:00 95 27 135/53 96 Mechanical Ventilator 30 04/17/17 14:38 91 27 30 04/17/17 14:00 91 27 128/58 96 Mechanical Ventilator 30 04/17/17 13:43 88 22 30 04/17/17 13:11 Mechanical Ventilator 30 04/17/17 13:10 97.0 89 113/56 Mechanical Ventilator 30 04/17/17 12:44 85 18 30 04/17/17 12:00 97.9 90 17 101/52 98 Mechanical Ventilator 30 04/17/17 12:00 30.0 04/17/17 12:00 84 Intake and Output 04/18/17 04/19/17 19:00 07:00 Intake Total 390 ml Output Total 0 ml Balance 390 ml Intake Oral 0 ml Free Water 30 ml IV Total 330 ml Other 30 ml Output Urine Total 0 ml Laboratory Tests 04/17/17 15:13: Arterial Blood pH 7.356, Arterial Blood Partial Pressure CO2 52.1H, Arterial Blood Partial Pressure O2 64.5L, Arterial Blood HCO3 28.5H, Arterial Blood Oxygen Saturation 90.0L, Arterial Blood Base Excess 2.4, Mike Test Positive 04/18/17 04:00: White Blood Count 13.1H, Red Blood Count 2.44L, Hemoglobin 8.8L, Hematocrit 26.4L, Mean Corpuscular Volume 108H, Mean Corpuscular Hemoglobin 36.0H, Mean Corpuscular Hemoglobin Concent 33.3, Red Cell Distribution Width 16.3H, Platelet Count 114L, Mean Platelet Volume 9.6, Neutrophils (%) (Auto) 74.7, Lymphocytes (%) (Auto) 15.6L, Monocytes (%) (Auto) 8.9, Eosinophils (%) (Auto) 0.2, Basophils (%) (Auto) 0.5, Sodium Level 139, Potassium Level 3.4, Chloride Level 95L, Carbon Dioxide Level 29, Anion Gap 15, Blood Urea Nitrogen 38H, Creatinine 6.8H, Estimat Glomerular Filtration Rate , Glucose Level 100, Uric Acid 5.1, Calcium Level 8.8, Phosphorus Level 5.0H, Magnesium Level 1.9, Total Bilirubin 0.3, Aspartate Amino Transf (AST/SGOT) 25, Alanine Aminotransferase ( ALT/SGPT) 13, Alkaline Phosphatase 134H, C-Reactive Protein, Quantitative 10.7H , Pro-B-Type Natriuretic Peptide 33581E, Total Protein 5.6L, Albumin 2.9L, Globulin 2.7, Albumin/Globulin Ratio 1.0, Random Amikacin Level 13.2, Vancomycin Level Trough 12.4H 04/18/17 07:46: Arterial Blood pH 7.360, Arterial Blood Partial Pressure CO2 47.9H, Arterial Blood Partial Pressure O2 101.6H, Arterial Blood HCO3 26.5H, Arterial Blood Oxygen Saturation 96.7, Arterial Blood Base Excess 0.8, Mike Test Positive Height (Feet): 5 Height (Inches): 8.00 Weight (Pounds): 175 General Appearance: mild distress, other - wants the tube out of his mouth Cardiovascular: normal rate Respiratory/Chest: decreased breath sounds Abdomen: distended LORENZA SANTOS Apr 18, 2017 11:32
--- NOTE | 2017-04-18 12:18 | Diagnostic Imaging Report ---
Indication: Dyspnea Comparison: 04/17/2017 A single view chest radiograph was obtained. Findings: Part of the upper chest is obscured. No obvious change identified. The heart is enlarged. No infiltrate identified. Impression: Limited study showing no obvious change compared to the previous day
--- NOTE | 2017-04-18 12:27 | Consultation ---
Consult Note Consult Note NEUROLOGY FOLLOW-UP NOTE: 04/18/2017 INTERIM HISTORY: Mr. Lira feels much better today. He has been extubated. The mind is clearer. He feels stronger. He denies any new neurologic symptoms. He is breathing well. His voice is still hoarse. He feels that his Myasthenia Gravis is controlled. NEUROLOGIC REVIEW OF SYMPTOMS: Benign. PHYSICAL EXAMINATION: GENERAL: A well-developed, well-nourished gentleman, in no acute distress. VITAL SIGNS: Pulse: 81. Blood pressure 146/59. Respirations: 25 HEENT: Benign. NECK: Supple. No meningeal signs. NEUROLOGIC EXAMINATION: MENTAL STATUS EXAMINATION: He was awake and alert. He was oriented to self, [facility] [place] but not to date. He was able to remember 3/3 words in 0, 1 and 3 minutes. He was able to remember presidents Trump through [place]. His mathematical skills were good and so was his visuo-spatial function SPEECH: He was hoarse. LANGUAGE: No aphasia. CRANIAL NERVE EXAMINATION: II through XII intact. MOTOR EXAMINATION: Normal muscle tone. Mild generalized wasting. G 5/5 power in all muscle groups except for G 4+/5 in the iliopsoas, with no fatigability. SENSORY EXAMINATION: Normal to light touch and graphesthesia. REFLEXES: 2+ and bilaterally symmetric at the biceps,triceps, brachioradialis, and knees. 0 at both ankles. Plantar responses were flexor bilaterally. DIAGNOSTIC IMPRESSION: 1. Mr. Milo Wilcox is an 82 year-old, right handed, gentleman with a past history of myasthenia gravis, cervical spinal stenosis - status post surgery with a residual paraparesis, respiratory insufficiency, pacemaker fpr a cardiac arrhythmia, hypertension, congestive heart failure, paroxysmal atrial fibrillation, depression and renal failure for which he is dialysis dependent, who was admitted for respiratory failure due to an infectious process and worsening of his myasthenia. 2. He feels much better today and has been extubated. 3. On neurologic examination at this time he does have cognitive dysfunction, a mild paraparesis, hoarseness of voice, but no muscle fatigability. 4. His infection is resolving and his MG is better controlled. RECOMMENDATIONS: 1. Continue Mestinon 60 mg tid. 2. Increase activity as tolerated. 3. Continue treatment of other intercurrent medical problems. Apex K. Shmia, M.D., M.S.P.H. Neurologist & Clinical Neurophysiologist ABEL CORNEJO Apr 18, 2017 12:27
--- NOTE | 2017-04-18 16:12 | Infectious Diseases Prog Note ---
Assessment/Plan Assessment/Plan IMPRESSION: 1) Severe sepsis and septic shock with hypotension and leukocytosis, improving 2) Other acute respiratory failure 3) ruled out for line-associated bacteremia 4) probable PD cath associated peritonitis low yield of obtaining peritoneal effluent now for cell count, gram stain, culture on D#3 of abx. continue therapy. s/p abd u/s yesterday 4) leukocytosis, improving 5) afebrile 6) chronic anemia 7) ESRD 8) severe pulmonary HTN--seen on [id number] TTE 9) lactic acidosis, improving RECOMMENDATION: --Continue IV vancomycin, amikacin, and aztreonam empirically D#3 of 10, renally dosed. plan to d/c amikacin tommorrow unless blood cx positive. --sputum cx growing pseudomonas that I think is a colonizer here based on absence of infiltrate on cxr. --f/u blood cx from 04/15 --defer peritoneal effluent sampling now given clinical response. Subjective ROS Limited/Unobtainable: Yes Allergies: Coded Allergies: GERTRUDIS INHIBITORS (Unverified Allergy, Unknown, 04/15/17) LEVOFLOXACIN (Unverified Allergy, Unknown, 04/15/17) PENICILLINS (Verified Allergy, Unknown, 04/15/17) Objective Vital Signs Last 24 Hour Vital Signs Date Time Temp Pulse Resp B/P (MAP) Pulse Ox O2 Delivery O2 Flow Rate FiO2 04/18/17 12:00 97.9 84 24 166/58 100 Nasal Cannula 6.0 04/18/17 12:00 6.0 04/18/17 12:00 75 04/18/17 11:50 Nasal Cannula 6.0 04/18/17 11:50 100 Nasal Cannula 6.0 04/18/17 11:45 Nasal Cannula 6.0 04/18/17 11:40 83 23 150/59 100 Nasal Cannula 6.0 04/18/17 11:05 73 26 04/18/17 11:00 78 22 135/62 100 Mechanical Ventilator 40 04/18/17 10:00 81 19 132/73 100 Mechanical Ventilator 30 04/18/17 09:38 30 04/18/17 09:01 80 28 30 04/18/17 09:00 97.7 78 18 140/73 99 Mechanical Ventilator 30 04/18/17 08:00 76 04/18/17 08:00 74 16 124/67 98 Mechanical Ventilator 30 04/18/17 07:08 30 04/18/17 07:00 120 14 30 04/18/17 07:00 80 13 134/66 98 Mechanical Ventilator 30 04/18/17 06:00 80 13 121/61 99 Mechanical Ventilator 30 04/18/17 05:22 78 14 30 04/18/17 05:00 82 20 119/65 99 Mechanical Ventilator 30 04/18/17 04:00 30 04/18/17 04:00 75 04/18/17 04:00 97.8 75 14 97/48 99 Mechanical Ventilator 30 04/18/17 03:15 81 13 30 04/18/17 03:00 81 16 96/46 98 Mechanical Ventilator 30 04/18/17 02:00 83 27 142/55 95 Mechanical Ventilator 30 04/18/17 01:04 83 20 30 04/18/17 01:00 79 20 111/48 97 Mechanical Ventilator 30 04/18/17 00:00 30 04/18/17 00:00 98.4 83 23 145/53 98 Mechanical Ventilator 30 04/18/17 00:00 83 04/17/17 23:13 84 21 30 04/17/17 23:00 85 19 87/48 95 Mechanical Ventilator 30 04/17/17 22:00 86 22 117/48 97 Mechanical Ventilator 30 04/17/17 21:24 141/57 04/17/17 21:09 85 17 30 04/17/17 21:00 88 18 141/57 96 Mechanical Ventilator 30 04/17/17 20:00 98.5 90 21 102/51 98 Mechanical Ventilator 30 04/17/17 20:00 90 04/17/17 20:00 30 04/17/17 19:05 96 27 30 04/17/17 19:00 94 28 113/83 100 Mechanical Ventilator 30 04/17/17 18:00 99 28 128/84 100 Mechanical Ventilator 30 04/17/17 17:02 93 24 30 04/17/17 17:00 87 28 124/53 93 Mechanical Ventilator 30 Height (Feet): 5 Height (Inches): 8.00 Weight (Pounds): 175 Objective GENERAL: The patient is awake, alert, and communicated with nodding. Denies abdominal pain. HEAD AND NECK: extubated HEART: Normal rate. 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 Have PermCath in the right side of the chest. LUNGS: Clear. ABDOMEN: Soft. There is a peritoneal dialysis catheter. EXTREMITIES: No edema. He has a right femoral line. Microbiology Date/Time Source Procedure Growth Status 04/15/17 20:00 Blood Blood Culture - Preliminary NO GROWTH AFTER 48 HOURS Resulted 04/15/17 19:47 Blood Blood Culture - Preliminary NO GROWTH AFTER 48 HOURS Resulted 04/16/17 04:00 Sputum Gram Stain - Final Complete 04/16/17 04:00 Sputum Culture - Final Pseudomonas Aeruginosa Usual Upper Respiratory Kary Complete 04/15/17 19:17 Nasal Nares MRSA Culture - Final NO METHICILLIN RESISTANT STAPH AUREUS... Complete 04/15/17 19:17 Rectum VRE Culture - Final NO VANCOMYCIN RESISTANT ENTEROCOCCUS ... Complete Laboratory Tests Test 04/18/17 04:00 04/18/17 07:46 White Blood Count 13.1 K/UL (4.8-10.8) H Red Blood Count 2.44 M/UL (4.70-6.10) L Hemoglobin 8.8 G/DL (14.2-18.0) L Hematocrit 26.4 % (42.0-52.0) L Mean Corpuscular Volume 108 FL (80-99) H Mean Corpuscular Hemoglobin 36.0 PG (27.0-31.0) H Mean Corpuscular Hemoglobin Concent 33.3 G/DL (32.0-36.0) Red Cell Distribution Width 16.3 % (11.6-14.8) H Platelet Count 114 K/UL (150-450) L Mean Platelet Volume 9.6 FL (6.5-10.1) Neutrophils (%) (Auto) 74.7 % (45.0-75.0) Lymphocytes (%) (Auto) 15.6 % (20.0-45.0) L Monocytes (%) (Auto) 8.9 % (1.0-10.0) Eosinophils (%) (Auto) 0.2 % (0.0-3.0) Basophils (%) (Auto) 0.5 % (0.0-2.0) Sodium Level 139 mEQ/L (135-145) Potassium Level 3.4 mEQ/L (3.4-4.9) Chloride Level 95 mEQ/L (98-107) L Carbon Dioxide Level 29 mEQ/L (20-30) Anion Gap 15 (5-15) Blood Urea Nitrogen 38 mg/dL (7-23) H Creatinine 6.8 mg/dL (0.7-1.2) H Estimat Glomerular Filtration Rate mL/min (>60) Glucose Level 100 mg/dL (74-106) Uric Acid 5.1 mg/dL (3.0-7.5) Calcium Level 8.8 mg/dL (8.6-10.2) Phosphorus Level 5.0 mg/dL (2.5-4.8) H Magnesium Level 1.9 mg/dL (1.7-2.5) Total Bilirubin 0.3 mg/dL (0.0-1.2) Aspartate Amino Transf (AST/SGOT) 25 U/L (5-40) Alanine Aminotransferase (ALT/SGPT) 13 U/L (3-41) Alkaline Phosphatase 134 U/L (40-129) H C-Reactive Protein, Quantitative 10.7 mg/dL (< 0.5) H Pro-B-Type Natriuretic Peptide 90487 pg/mL (0-450) H Total Protein 5.6 g/dL (6.6-8.7) L Albumin 2.9 g/dL (3.5-5.2) L Globulin 2.7 g/dL Albumin/Globulin Ratio 1.0 (1.0-2.7) Random Amikacin Level 13.2 ug/mL Vancomycin Level Trough 12.4 ug/mL (5.0-12.0) H Arterial Blood pH 7.360 (7.350-7.450) Arterial Blood Partial Pressure CO2 47.9 mmHg (35.0-45.0) H Arterial Blood Partial Pressure O2 101.6 mmHg (75.0-100.0) H Arterial Blood HCO3 26.5 mmol/L (22.0-26.0) H Arterial Blood Oxygen Saturation 96.7 % (92.0-98.0) Arterial Blood Base Excess 0.8 Mike Test Positive Current Medications Medications (Trade) Dose Ordered Sig/Rossana Route PRN Reason Start Time Stop Time Status Last Admin Dose Admin Acetaminophen (Tylenol) 650 mg Q4H PRN ORAL fever 04/15/17 22:15 05/15/17 22:14 Albuterol/ Ipratropium (DuoNeb 0.5-3(2.5)mg/3ml) 3 ml EVERY 4 HOURS PRN HHN Shortness of Breath 04/15/17 22:15 04/20/17 22:14 Allopurinol (Zyloprim) 100 mg DAILY ORAL 04/16/17 09:00 05/16/17 08:59 04/18/17 09:14 Amikacin Protocol (Amikacin pharmacy to dose) 1 ea DAILY PRN MISC PHARM 04/16/17 06:00 05/16/17 05:59 Atorvastatin Calcium (Lipitor) 10 mg BEDTIME ORAL 04/16/17 21:00 05/16/17 20:59 04/17/17 20:44 Aztreonam 0.5 gm/ Dextrose 55 ml @ 110 mls/hr Q12HR IVPB 04/16/17 22:00 04/23/17 21:59 04/18/17 09:14 Chlorhexidine Gluconate (Lise-Hex 2%) 1 applic BEDTIME TOPIC 04/16/17 21:00 05/16/17 20:59 04/17/17 20:46 Dextrose (Dextrose 50%) STAT PRN IV Hypoglycemia 04/16/17 07:35 05/16/17 07:34 Insulin Aspart (NovoLOG) EVERY 6 HOURS SUBQ 04/16/17 12:00 05/16/17 11:59 04/17/17 18:33 Levothyroxine Sodium (Synthroid) 50 mcg DAILY@0630 ORAL 04/16/17 06:30 05/16/17 06:29 04/18/17 05:52 Lorazepam (Ativan 2mg/ml 1ml) 2 mg Q2H PRN IV For Anxiety 04/17/17 10:15 04/24/17 10:14 04/18/17 01:57 Morphine Sulfate (Morphine Sulfate) 4 mg EVERY 4 HOURS PRN IVP Severe Pain (Pain Scale 7-10) 04/15/17 22:15 04/22/17 22:14 04/16/17 19:44 Norepinephrine Bitartrate 4 mg/ Dextrose 254 ml @ 0 mls/hr Q24H IV 04/15/17 22:15 05/15/17 22:14 04/15/17 23:05 Ondansetron HCl (Zofran) 4 mg Q6H PRN IVP Nausea & Vomiting 04/15/17 22:15 9/20/17 22:14 Pantoprazole (Protonix) 40 mg EVERY 12 HOURS ORAL 04/18/17 21:00 05/18/17 20:59 Paroxetine HCl (Paxil) 10 mg DAILY ORAL 04/16/17 11:00 05/16/17 10:59 04/18/17 09:14 Polyethylene Glycol (Miralax) 17 gm DAILYPRN PRN ORAL Constipation 04/15/17 22:15 05/15/17 22:14 Pyridostigmine Mumford (Mestinon) 60 mg Q8HR ORAL 04/16/17 22:00 05/16/17 21:59 04/18/17 14:52 Vancomycin HCl (Vanco rx to dose) 1 ea DAILY PRN MISC RX DOSING 04/18/17 10:30 05/16/17 08:59 Tai Moraes M.D. Apr 18, 2017 16:12
--- NOTE | 2017-04-18 16:45 | General Progress Note ---
Assessment/Plan Assessment/Plan A/P # Anemia 2/2 chronic disease --> follow up with Dr. Shah at [facility] # Severe sepsis with leukocytosis # Thrombocytopenia 2/2 chronic liver disease --> abdominal US reviewed # ARF # ESRD Subjective Constitutional: Reports: no symptoms HEENT: Reports: no symptoms Cardiovascular: Reports: no symptoms Respiratory: Reports: no symptoms Gastrointestinal/Abdominal: Reports: no symptoms Genitourinary: Reports: no symptoms Neurologic/Psychiatric: Reports: no symptoms Endocrine: Reports: no symptoms Hematologic/Lymphatic: Reports: anemia Allergies: Coded Allergies: GERTRUDIS INHIBITORS (Unverified Allergy, Unknown, 04/15/17) LEVOFLOXACIN (Unverified Allergy, Unknown, 04/15/17) PENICILLINS (Verified Allergy, Unknown, 04/15/17) Subjective was extubated today Objective Last 24 Hour Vital Signs Date Time Temp Pulse Resp B/P (MAP) Pulse Ox O2 Delivery O2 Flow Rate FiO2 04/18/17 16:00 6.0 04/18/17 16:00 78 04/18/17 16:00 97.5 85 22 155/78 100 Nasal Cannula 6.0 04/18/17 15:00 85 23 149/57 100 Nasal Cannula 6.0 04/18/17 14:00 77 26 146/50 100 Nasal Cannula 6.0 04/18/17 13:00 83 22 125/60 100 Nasal Cannula 6.0 04/18/17 12:00 97.9 84 24 166/58 100 Nasal Cannula 6.0 04/18/17 12:00 6.0 04/18/17 12:00 75 04/18/17 11:50 Nasal Cannula 6.0 04/18/17 11:50 100 Nasal Cannula 6.0 04/18/17 11:45 Nasal Cannula 6.0 04/18/17 11:40 83 23 150/59 100 Nasal Cannula 6.0 04/18/17 11:05 73 26 04/18/17 11:00 78 22 135/62 100 Mechanical Ventilator 40 04/18/17 10:00 81 19 132/73 100 Mechanical Ventilator 30 04/18/17 09:38 30 04/18/17 09:01 80 28 30 04/18/17 09:00 97.7 78 18 140/73 99 Mechanical Ventilator 30 04/18/17 08:00 76 04/18/17 08:00 74 16 124/67 98 Mechanical Ventilator 30 04/18/17 07:08 30 04/18/17 07:00 120 14 30 04/18/17 07:00 80 13 134/66 98 Mechanical Ventilator 30 04/18/17 06:00 80 13 121/61 99 Mechanical Ventilator 30 04/18/17 05:22 78 14 30 04/18/17 05:00 82 20 119/65 99 Mechanical Ventilator 30 04/18/17 04:00 30 04/18/17 04:00 75 04/18/17 04:00 97.8 75 14 97/48 99 Mechanical Ventilator 30 04/18/17 03:15 81 13 30 04/18/17 03:00 81 16 96/46 98 Mechanical Ventilator 30 04/18/17 02:00 83 27 142/55 95 Mechanical Ventilator 30 04/18/17 01:04 83 20 30 04/18/17 01:00 79 20 111/48 97 Mechanical Ventilator 30 04/18/17 00:00 30 04/18/17 00:00 98.4 83 23 145/53 98 Mechanical Ventilator 30 04/18/17 00:00 83 04/17/17 23:13 84 21 30 04/17/17 23:00 85 19 87/48 95 Mechanical Ventilator 30 04/17/17 22:00 86 22 117/48 97 Mechanical Ventilator 30 04/17/17 21:24 141/57 04/17/17 21:09 85 17 30 04/17/17 21:00 88 18 141/57 96 Mechanical Ventilator 30 04/17/17 20:00 98.5 90 21 102/51 98 Mechanical Ventilator 30 04/17/17 20:00 90 04/17/17 20:00 30 04/17/17 19:05 96 27 30 04/17/17 19:00 94 28 113/83 100 Mechanical Ventilator 30 04/17/17 18:00 99 28 128/84 100 Mechanical Ventilator 30 04/17/17 17:02 93 24 30 04/17/17 17:00 87 28 124/53 93 Mechanical Ventilator 30 Intake and Output 04/18/17 04/19/17 19:00 07:00 Intake Total 410 ml Output Total 50 ml Balance 360 ml Intake Oral 20 ml Free Water 30 ml IV Total 330 ml Other 30 ml Output Urine Total 0 ml Other 50 ml Laboratory Tests 04/18/17 04:00: White Blood Count 13.1H, Red Blood Count 2.44L, Hemoglobin 8.8L, Hematocrit 26.4L, Mean Corpuscular Volume 108H, Mean Corpuscular Hemoglobin 36.0H, Mean Corpuscular Hemoglobin Concent 33.3, Red Cell Distribution Width 16.3H, Platelet Count 114L, Mean Platelet Volume 9.6, Neutrophils (%) (Auto) 74.7, Lymphocytes (%) (Auto) 15.6L, Monocytes (%) (Auto) 8.9, Eosinophils (%) (Auto) 0.2, Basophils (%) (Auto) 0.5, Sodium Level 139, Potassium Level 3.4, Chloride Level 95L, Carbon Dioxide Level 29, Anion Gap 15, Blood Urea Nitrogen 38H, Creatinine 6.8H, Estimat Glomerular Filtration Rate , Glucose Level 100, Uric Acid 5.1, Calcium Level 8.8, Phosphorus Level 5.0H, Magnesium Level 1.9, Total Bilirubin 0.3, Aspartate Amino Transf (AST/SGOT) 25, Alanine Aminotransferase ( ALT/SGPT) 13, Alkaline Phosphatase 134H, C-Reactive Protein, Quantitative 10.7H , Pro-B-Type Natriuretic Peptide 68148X, Total Protein 5.6L, Albumin 2.9L, Globulin 2.7, Albumin/Globulin Ratio 1.0, Random Amikacin Level 13.2, Vancomycin Level Trough 12.4H 04/18/17 07:46: Arterial Blood pH 7.360, Arterial Blood Partial Pressure CO2 47.9H, Arterial Blood Partial Pressure O2 101.6H, Arterial Blood HCO3 26.5H, Arterial Blood Oxygen Saturation 96.7, Arterial Blood Base Excess 0.8, Mike Test Positive Height (Feet): 5 Height (Inches): 8.00 Weight (Pounds): 175 General Appearance: no apparent distress EENT: normal ENT inspection Neck: normal alignment Neurologic: alert Skin: warm/dry Davey Olsen Apr 18, 2017 16:45
--- NOTE | 2017-04-18 19:30 | Cardiology Progress Note ---
Assessment/Plan Assessment/Plan 1. Septic shock. 2. Metabolic acidosis. 3. Hypotension. 4. History of proximal episodes of atrial fibrillation. 5. History of permanent pacemaker implantation. 6. Myasthenia gravis history. 7. History of incision and drainage of an umbilical superficial MSSA abscess. 8. History of congestive heart failure. 9. Pulmonary hypertension. 10. End-stage renal disease. 11. Anemia. 12. Questionable myelodysplastic syndrome. 13. Possibly smoldering abscess much improved extubated earlier today bp is fine now seem stabe post extubation fr joshua jackson is off med for pulm htn to be started in near futer i discussed with pmd dr cary at [facility] 2 dasy ago d/w rn and . Subjective Cardiovascular: Denies: chest pain, lightheadedness, palpitations Respiratory: Denies: shortness of breath Gastrointestinal/Abdominal: Denies: abdominal pain Genitourinary: Denies: burning Objective Last 24 Hour Vital Signs Date Time Temp Pulse Resp B/P (MAP) Pulse Ox O2 Delivery O2 Flow Rate FiO2 04/18/17 19:02 99 Nasal Cannula 5.0 04/18/17 19:02 Nasal Cannula 5.0 04/18/17 18:00 83 22 151/71 98 Nasal Cannula 6.0 04/18/17 17:00 80 21 132/57 100 Nasal Cannula 6.0 04/18/17 16:00 6.0 04/18/17 16:00 78 04/18/17 16:00 97.5 85 22 155/78 100 Nasal Cannula 6.0 04/18/17 15:00 85 23 149/57 100 Nasal Cannula 6.0 04/18/17 14:00 77 26 146/50 100 Nasal Cannula 6.0 04/18/17 13:00 83 22 125/60 100 Nasal Cannula 6.0 04/18/17 12:00 97.9 84 24 166/58 100 Nasal Cannula 6.0 04/18/17 12:00 6.0 04/18/17 12:00 75 04/18/17 11:50 Nasal Cannula 6.0 04/18/17 11:50 100 Nasal Cannula 6.0 04/18/17 11:45 Nasal Cannula 6.0 04/18/17 11:40 83 23 150/59 100 Nasal Cannula 6.0 04/18/17 11:05 73 26 04/18/17 11:00 78 22 135/62 100 Mechanical Ventilator 40 04/18/17 10:00 81 19 132/73 100 Mechanical Ventilator 30 04/18/17 09:38 30 04/18/17 09:01 80 28 30 04/18/17 09:00 97.7 78 18 140/73 99 Mechanical Ventilator 30 04/18/17 08:00 76 04/18/17 08:00 74 16 124/67 98 Mechanical Ventilator 30 04/18/17 07:08 30 04/18/17 07:00 120 14 30 04/18/17 07:00 80 13 134/66 98 Mechanical Ventilator 30 04/18/17 06:00 80 13 121/61 99 Mechanical Ventilator 30 04/18/17 05:22 78 14 30 04/18/17 05:00 82 20 119/65 99 Mechanical Ventilator 30 04/18/17 04:00 30 04/18/17 04:00 75 04/18/17 04:00 97.8 75 14 97/48 99 Mechanical Ventilator 30 04/18/17 03:15 81 13 30 04/18/17 03:00 81 16 96/46 98 Mechanical Ventilator 30 04/18/17 02:00 83 27 142/55 95 Mechanical Ventilator 30 04/18/17 01:04 83 20 30 04/18/17 01:00 79 20 111/48 97 Mechanical Ventilator 30 04/18/17 00:00 30 04/18/17 00:00 98.4 83 23 145/53 98 Mechanical Ventilator 30 04/18/17 00:00 83 04/17/17 23:13 84 21 30 04/17/17 23:00 85 19 87/48 95 Mechanical Ventilator 30 04/17/17 22:00 86 22 117/48 97 Mechanical Ventilator 30 04/17/17 21:24 141/57 04/17/17 21:09 85 17 30 04/17/17 21:00 88 18 141/57 96 Mechanical Ventilator 30 04/17/17 20:00 98.5 90 21 102/51 98 Mechanical Ventilator 30 04/17/17 20:00 90 04/17/17 20:00 30 General Appearance: no apparent distress, alert Neck: supple Cardiovascular: normal rate, regular rhythm Respiratory/Chest: lungs clear, normal breath sounds Abdomen: non tender, soft Extremities: no swelling Intake and Output 04/18/17 04/19/17 19:00 07:00 Intake Total 830 ml Output Total 60 ml Balance 770 ml Intake Oral 440 ml Free Water 30 ml IV Total 330 ml Other 30 ml Output Urine Total 0 ml Other 60 ml Laboratory Tests Test 04/18/17 04:00 04/18/17 07:46 White Blood Count 13.1 K/UL (4.8-10.8) H Red Blood Count 2.44 M/UL (4.70-6.10) L Hemoglobin 8.8 G/DL (14.2-18.0) L Hematocrit 26.4 % (42.0-52.0) L Mean Corpuscular Volume 108 FL (80-99) H Mean Corpuscular Hemoglobin 36.0 PG (27.0-31.0) H Mean Corpuscular Hemoglobin Concent 33.3 G/DL (32.0-36.0) Red Cell Distribution Width 16.3 % (11.6-14.8) H Platelet Count 114 K/UL (150-450) L Mean Platelet Volume 9.6 FL (6.5-10.1) Neutrophils (%) (Auto) 74.7 % (45.0-75.0) Lymphocytes (%) (Auto) 15.6 % (20.0-45.0) L Monocytes (%) (Auto) 8.9 % (1.0-10.0) Eosinophils (%) (Auto) 0.2 % (0.0-3.0) Basophils (%) (Auto) 0.5 % (0.0-2.0) Sodium Level 139 mEQ/L (135-145) Potassium Level 3.4 mEQ/L (3.4-4.9) Chloride Level 95 mEQ/L (98-107) L Carbon Dioxide Level 29 mEQ/L (20-30) Anion Gap 15 (5-15) Blood Urea Nitrogen 38 mg/dL (7-23) H Creatinine 6.8 mg/dL (0.7-1.2) H Estimat Glomerular Filtration Rate mL/min (>60) Glucose Level 100 mg/dL (74-106) Uric Acid 5.1 mg/dL (3.0-7.5) Calcium Level 8.8 mg/dL (8.6-10.2) Phosphorus Level 5.0 mg/dL (2.5-4.8) H Magnesium Level 1.9 mg/dL (1.7-2.5) Total Bilirubin 0.3 mg/dL (0.0-1.2) Aspartate Amino Transf (AST/SGOT) 25 U/L (5-40) Alanine Aminotransferase (ALT/SGPT) 13 U/L (3-41) Alkaline Phosphatase 134 U/L (40-129) H C-Reactive Protein, Quantitative 10.7 mg/dL (< 0.5) H Pro-B-Type Natriuretic Peptide 20877 pg/mL (0-450) H Total Protein 5.6 g/dL (6.6-8.7) L Albumin 2.9 g/dL (3.5-5.2) L Globulin 2.7 g/dL Albumin/Globulin Ratio 1.0 (1.0-2.7) Random Amikacin Level 13.2 ug/mL Vancomycin Level Trough 12.4 ug/mL (5.0-12.0) H Arterial Blood pH 7.360 (7.350-7.450) Arterial Blood Partial Pressure CO2 47.9 mmHg (35.0-45.0) H Arterial Blood Partial Pressure O2 101.6 mmHg (75.0-100.0) H Arterial Blood HCO3 26.5 mmol/L (22.0-26.0) H Arterial Blood Oxygen Saturation 96.7 % (92.0-98.0) Arterial Blood Base Excess 0.8 Mike Test Positive Microbiology Date/Time Source Procedure Growth Status 04/15/17 20:00 Blood Blood Culture - Preliminary NO GROWTH AFTER 48 HOURS Resulted 04/15/17 19:47 Blood Blood Culture - Preliminary NO GROWTH AFTER 48 HOURS Resulted 04/16/17 04:00 Sputum Gram Stain - Final Complete 04/16/17 04:00 Sputum Culture - Final Pseudomonas Aeruginosa Usual Upper Respiratory Kary Complete ACE REID Apr 18, 2017 19:30
[2017-04-18] MEDS: Dyna-Hex 2% Top Sol 8oz TOPIC SCH (20:51)
--- NOTE | 2017-04-18 21:30 | Consultation ---
DATE OF CONSULTATION: 04/16/2017 HEMATOLOGY/ONCOLOGY CONSULTATION NOTE: POOR AUDIO CONSULTING PHYSICIAN: Davey Olsen M.D. REQUESTING PHYSICIAN: Leola Craven M.D. REASON FOR CONSULTATION: Evaluation of leukocytosis, anemia, and thrombocytopenia. IDENTIFICATION DATA: Dear Dr. Craven, The patient is a pleasant 82-year-old male with a past medical history significant for myasthenia gravis, history of end-stage renal disease, on dialysis, peritoneal and hemodialysis, initially presented to [facility] for underlying sepsis, presented to the ER with paramedics with shortness of breath and hypertension. Blood pressure was 84 systolic. The patient denies any cough, was transferred to [facility] for further evaluation and care. Has decreased appetite, has been feeling more fatigued, found to have respiratory distress and intubated in the ER, is on levophed drip, has been seen by Cardiology service as well. Hematology service is consulted, given blood dyscrasias. PAST MEDICAL HISTORY: End-stage renal disease, CHF, spinal stenosis, pulmonary hypertension, sleep apnea. PAST SURGICAL HISTORY: ALLERGIES: Levofloxacin and penicillin. SOCIAL HISTORY: No alcohol, tobacco, or illicit drug use. REVIEW OF SYSTEMS: Unable to obtain, given the patient is currently intubated. PHYSICAL EXAMINATION: GENERAL: The patient is in no acute distress. VITAL SIGNS: Temperature 98 degrees Fahrenheit, pulse 83, respiratory rate 12, blood pressure 120/ , and pulse oximetry 100% . PULMONARY: Decreased breath sounds, on vent. CARDIOVASCULAR: Regular rate. No S3 or S4. ABDOMEN: Soft, nontender, and nondistended. EXTREMITIES: There is 1+ edema. LABORATORY AND DIAGNOSTIC DATA: WBC 27,000, hemoglobin 8.8, hematocrit 27, platelet count 128,000; neutrophils 87%, and lymphocytes 6%. INR of 1. BUN of 38, creatinine of 7.3. Toxicology, amikacin is pending. IMAGING: Endotracheal tube is in good position on the x-ray. ASSESSMENT: 1. Leukocytosis, recurrent infection of umbilicus versus other process. Blood cultures are pending. 2. Anemia, secondary to end-stage renal disease. 3. Anemia, secondary to chronic disease. Anemia workup has been ordered. resolved. 4. Thrombocytopenia, potentially secondary to underlying sepsis as well with umbilical superficial MSSA abscess. 5. Potential nondysplastic syndrome given the patient has macrocytosis. At this time, we will not evaluate this as the patient is not a good candidate for bone marrow biopsy. 6. Pulmonary hypertension. 7. Underlying congestive heart failure, has been seen by Cardiology service. 8. End-stage renal disease, has been on PermCath placement dialysis. I appreciate the consultation. Davey Olesn M.D. DR: CHARLIE JOB#: [id number] CC:
[2017-04-19] VITALS (26 sets, daily range): BP systolic 86–177; BP diastolic 43–90
[2017-04-19 05:41] LABS: MEAN CORPUSCULAR HEMOGLOBIN 36.5 PG (27.0-31.0); MEAN CORPUSCULAR HGB CONC 33.1 G/DL (32.0-36.0); MEAN CORPUSCULAR VOLUME 110 FL (80-99); MEAN PLATELET VOLUME 8.1 FL (6.5-10.1); PLATELET COUNT 146 K/UL (150-450); RED BLOOD COUNT 2.93 M/UL (4.70-6.10); RED CELL DISTRIBUTION WIDTH 16.7 % (11.6-14.8)
[2017-04-19 05:53] LABS: ALANINE AMINOTRANSFERASE 15 U/L (3-41); ANION GAP 19 (5-15); ASPARTATE AMINO TRANSFERASE 28 U/L (5-40); CARBON DIOXIDE 27 mEQ/L (20-30); CHLORIDE 96 mEQ/L (98-107); CREATININE 8.5 mg/dL (0.7-1.2); HEMOLYSIS 4; MAGNESIUM 2.3 mg/dL (1.7-2.5); PHOSPHORUS 9.7 mg/dL (2.5-4.8); POTASSIUM 3.7 mEQ/L (3.4-4.9); SODIUM 142 mEQ/L (135-145); TOTAL PROTEIN 6.8 g/dL (6.6-8.7); WHITE BLOOD COUNT 28.9 K/UL (4.8-10.8)
[2017-04-19] MEDS: Pyridostigmine 60mg tab ORAL SCH ×3 (06:09→22:15)
[2017-04-19] MEDS: NovoLOG Insulin Flexpen SUBQ SCH ×4 (06:11→23:31)
[2017-04-19 09:47] LABS: ABG ALLEN TEST POSITIVE; ABG PCO2 53.2 mmHg (35.0-45.0)
[2017-04-19 09:54] LABS: ANISOCYTOSIS 1+; BAND NEUTROPHILS % (MANUAL) 0 % (0-8); BASOPHILS % (MANUAL) 0 % (0-2); EOSINOPHILS % (MANUAL) 0 % (0-3); HYPOCHROMASIA 1+; LYMPHOCYTES % (MANUAL) 8 % (20-45); MACROCYTES 1+; NEUTROPHILS % (MANUAL) 83 % (45-75); PLATELET ESTIMATE ADEQUATE; PLATELET MORPHOLOGY NORMAL; POLYCHROMASIA 1+; TOTAL CELLS COUNTED 100
[2017-04-19] MEDS: Allopurinol 100mg Tab ORAL SCH (09:57)
[2017-04-19] MEDS: PARoxetine 10mg tab ORAL SCH (09:57)
[2017-04-19] MEDS: Aztreonam 0.5gm/D5W 55ml IVPB SCH ×4 (09:58→20:54)
--- NOTE | 2017-04-19 10:08 | Pulmonolgy Critical Care Note ---
Critical Care - Asmt/Plan Problems: (1) Acute respiratory failure (2) Septic shock (3) ESRD (end stage renal disease) on dialysis (4) Myasthenia gravis Respiratory: monitor respiratory rate, adjust FIO2, other - tolerating extubatin Cardiac: continue to monitor HR/BP Renal: F/U I&O, check electrolytes Infectious Disease: check cultures, continue antibiotics Gastrointestinal: continue feedings/current rate Endocrine: monitor blood sugar, check TSH, continue sliding scale insulin Hematologic: monitor H/H, transfuse if hgb<8.5 Neurologic: PRN Ativan, keep patient comfortable Affect: PRN ativan Prophylaxis: Protonix Notes Reviewed: shipping room supervisor, cardio Discussed with: nurses, consultants, correctional counselor/case managerarea sales manager - Objective Last 24 Hour Vital Signs Date Time Temp Pulse Resp B/P (MAP) Pulse Ox O2 Delivery O2 Flow Rate FiO2 04/19/17 08:00 40.0 04/19/17 08:00 87 04/19/17 08:00 97.5 88 22 115/59 98 Bi-pap 40 04/19/17 08:00 Bi-pap 40 04/19/17 07:00 82 22 86/48 99 Bi-pap 04/19/17 06:50 100 Bi-pap 40 04/19/17 06:50 90 19 100 Facial 40 04/19/17 06:20 Bi-pap 40 04/19/17 06:00 90 22 112/88 99 Bi-pap 04/19/17 05:18 86 19 95 Facial 40 04/19/17 05:00 84 22 137/49 99 Nasal Cannula 2.0 04/19/17 04:45 96.2 80 18 177/90 100 Bi-pap 40 04/19/17 04:45 Bi-pap 40 04/19/17 04:00 89 16 96 Facial 40 04/19/17 04:00 97.2 82 22 177/64 99 Bi-pap 40 04/19/17 04:00 40 04/19/17 04:00 84 04/19/17 03:00 82 22 173/78 94 Nasal Cannula 2.0 04/19/17 02:00 79 22 160/44 95 Nasal Cannula 2.0 04/19/17 01:00 80 22 166/53 95 Nasal Cannula 2.0 04/19/17 00:00 97.6 72 20 135/46 97 Nasal Cannula 2.0 04/19/17 00:00 2.0 04/18/17 23:00 76 26 148/51 97 Nasal Cannula 2.0 04/18/17 22:15 145/51 04/18/17 22:01 85 12 Bi-pap 40 04/18/17 22:00 77 21 165/74 100 Nasal Cannula 3.0 04/18/17 21:59 85 12 97 Nasal 40 04/18/17 21:00 78 22 168/60 90 Nasal Cannula 6.0 04/18/17 20:00 97.8 78 21 146/65 99 Nasal Cannula 6.0 04/18/17 20:00 75 04/18/17 20:00 6.0 04/18/17 19:02 99 Nasal Cannula 5.0 04/18/17 19:02 Nasal Cannula 5.0 04/18/17 19:00 83 22 151/71 98 Nasal Cannula 6.0 04/18/17 18:00 83 22 151/71 98 Nasal Cannula 6.0 04/18/17 17:00 80 21 132/57 100 Nasal Cannula 6.0 04/18/17 16:00 6.0 04/18/17 16:00 78 04/18/17 16:00 97.5 85 22 155/78 100 Nasal Cannula 6.0 04/18/17 15:00 85 23 149/57 100 Nasal Cannula 6.0 04/18/17 14:00 77 26 146/50 100 Nasal Cannula 6.0 04/18/17 13:00 83 22 125/60 100 Nasal Cannula 6.0 04/18/17 12:00 97.9 84 24 166/58 100 Nasal Cannula 6.0 04/18/17 12:00 6.0 04/18/17 12:00 75 04/18/17 11:50 Nasal Cannula 6.0 04/18/17 11:50 100 Nasal Cannula 6.0 04/18/17 11:45 Nasal Cannula 6.0 04/18/17 11:40 83 23 150/59 100 Nasal Cannula 6.0 04/18/17 11:05 73 26 04/18/17 11:00 78 22 135/62 100 Mechanical Ventilator 40 Status: sedated Condition: critical HEENT: atraumatic Lungs: clear, chest wall tender Heart: HR/BP unstable, regular Abdomen: non-tender, active bowel sounds Extremities: no C/C/E, edema Decubiti: location Accucheck: 149 Critical Care - Subjective ROS Limited/Unobtainable: No ICU Day: 4 Condition: critical EKG Rhythm: Sinus Rhythm FI02: 40 Vent Support Breath Rate: 16 Vent Support Mode: CPAP Vent Tidal Volume: 600 Sputum Amount: Moderate PIP: 10 I&O: Intake and Output 04/19/17 04/20/17 19:00 07:00 Intake Total 0 ml Output Total 1000 ml Balance -1000 ml Intake Oral 0 ml Output Urine Total 0 ml Hemodialysis UF 1000 ml CXR: no change, ET-Tube: 7.5 ET Position: 23 Labs: Laboratory Tests Test 04/19/17 03:00 04/19/17 09:38 White Blood Count 28.9 K/UL (4.8-10.8) #*H Red Blood Count 2.93 M/UL (4.70-6.10) L Hemoglobin 10.7 G/DL (14.2-18.0) L Hematocrit 32.3 % (42.0-52.0) L Mean Corpuscular Volume 110 FL (80-99) H Mean Corpuscular Hemoglobin 36.5 PG (27.0-31.0) H Mean Corpuscular Hemoglobin Concent 33.1 G/DL (32.0-36.0) Red Cell Distribution Width 16.7 % (11.6-14.8) H Platelet Count 146 K/UL (150-450) L Mean Platelet Volume 8.1 FL (6.5-10.1) Neutrophils (%) (Auto) % (45.0-75.0) Lymphocytes (%) (Auto) % (20.0-45.0) Monocytes (%) (Auto) % (1.0-10.0) Eosinophils (%) (Auto) % (0.0-3.0) Basophils (%) (Auto) % (0.0-2.0) Differential Total Cells Counted 100 Neutrophils % (Manual) 83 % (45-75) H Lymphocytes % (Manual) 8 % (20-45) L Monocytes % (Manual) 9 % (1-10) Eosinophils % (Manual) 0 % (0-3) Basophils % (Manual) 0 % (0-2) Band Neutrophils 0 % (0-8) Platelet Estimate Adequate Platelet Morphology Normal Polychromasia 1+ Hypochromasia 1+ Anisocytosis 1+ Macrocytosis 1+ Sodium Level 142 mEQ/L (135-145) Potassium Level 3.7 mEQ/L (3.4-4.9) Chloride Level 96 mEQ/L (98-107) L Carbon Dioxide Level 27 mEQ/L (20-30) Anion Gap 19 (5-15) H Blood Urea Nitrogen 47 mg/dL (7-23) H Creatinine 8.5 mg/dL (0.7-1.2) H Estimat Glomerular Filtration Rate mL/min (>60) Glucose Level 191 mg/dL (74-106) H Calcium Level 9.0 mg/dL (8.6-10.2) Phosphorus Level 9.7 mg/dL (2.5-4.8) H Magnesium Level 2.3 mg/dL (1.7-2.5) Total Bilirubin 0.3 mg/dL (0.0-1.2) Aspartate Amino Transf (AST/SGOT) 28 U/L (5-40) Alanine Aminotransferase (ALT/SGPT) 15 U/L (3-41) Alkaline Phosphatase 163 U/L (40-129) H Total Protein 6.8 g/dL (6.6-8.7) Albumin 3.4 g/dL (3.5-5.2) L Globulin 3.4 g/dL Albumin/Globulin Ratio 1.0 (1.0-2.7) Arterial Blood pH 7.304 (7.350-7.450) Arterial Blood Partial Pressure CO2 53.2 mmHg (35.0-45.0) H Arterial Blood Partial Pressure O2 79.9 mmHg (75.0-100.0) Arterial Blood HCO3 25.8 mmol/L (22.0-26.0) Arterial Blood Oxygen Saturation 93.5 % (92.0-98.0) Arterial Blood Base Excess -1.0 Mike Test Positive QUYNH CARDONA Apr 19, 2017 10:08
--- NOTE | 2017-04-19 10:40 | General Progress Note ---
Assessment/Plan Status: stable Status Narrative extubated yesterday- dialysed today- Assessment/Plan ESRD : On Hemo and Peritoneal dialysis Septic shock , Low BP stablizing PAF S/p I and D infra umbilcal superficial MSSA abscess. CHF, PHT. 90's hypokinesis Anemia. MDS? Plan: Hemodynamically stable HD done today Optimize cardiac and Pulm status, weaning as possible monitor renal parameters per orders Subjective ROS Limited/Unobtainable: No Constitutional: Reports: malaise, other - on ventimask Allergies: Coded Allergies: GERTRUDIS INHIBITORS (Unverified Allergy, Unknown, 04/15/17) LEVOFLOXACIN (Unverified Allergy, Unknown, 04/15/17) PENICILLINS (Verified Allergy, Unknown, 04/15/17) Objective Last 24 Hour Vital Signs Date Time Temp Pulse Resp B/P (MAP) Pulse Ox O2 Delivery O2 Flow Rate FiO2 04/19/17 08:00 40.0 04/19/17 08:00 87 04/19/17 08:00 97.5 88 22 115/59 98 Bi-pap 40 04/19/17 08:00 Bi-pap 40 04/19/17 07:00 82 22 86/48 99 Bi-pap 04/19/17 06:50 100 Bi-pap 40 04/19/17 06:50 90 19 100 Facial 40 04/19/17 06:20 Bi-pap 40 04/19/17 06:00 90 22 112/88 99 Bi-pap 04/19/17 05:18 86 19 95 Facial 40 04/19/17 05:00 84 22 137/49 99 Nasal Cannula 2.0 04/19/17 04:45 96.2 80 18 177/90 100 Bi-pap 40 04/19/17 04:45 Bi-pap 40 04/19/17 04:00 89 16 96 Facial 40 04/19/17 04:00 97.2 82 22 177/64 99 Bi-pap 40 04/19/17 04:00 40 04/19/17 04:00 84 04/19/17 03:00 82 22 173/78 94 Nasal Cannula 2.0 04/19/17 02:00 79 22 160/44 95 Nasal Cannula 2.0 04/19/17 01:00 80 22 166/53 95 Nasal Cannula 2.0 04/19/17 00:00 97.6 72 20 135/46 97 Nasal Cannula 2.0 04/19/17 00:00 2.0 04/18/17 23:00 76 26 148/51 97 Nasal Cannula 2.0 04/18/17 22:15 145/51 04/18/17 22:01 85 12 Bi-pap 40 04/18/17 22:00 77 21 165/74 100 Nasal Cannula 3.0 04/18/17 21:59 85 12 97 Nasal 40 04/18/17 21:00 78 22 168/60 90 Nasal Cannula 6.0 04/18/17 20:00 97.8 78 21 146/65 99 Nasal Cannula 6.0 04/18/17 20:00 75 04/18/17 20:00 6.0 04/18/17 19:02 99 Nasal Cannula 5.0 04/18/17 19:02 Nasal Cannula 5.0 04/18/17 19:00 83 22 151/71 98 Nasal Cannula 6.0 04/18/17 18:00 83 22 151/71 98 Nasal Cannula 6.0 04/18/17 17:00 80 21 132/57 100 Nasal Cannula 6.0 04/18/17 16:00 6.0 04/18/17 16:00 78 04/18/17 16:00 97.5 85 22 155/78 100 Nasal Cannula 6.0 04/18/17 15:00 85 23 149/57 100 Nasal Cannula 6.0 04/18/17 14:00 77 26 146/50 100 Nasal Cannula 6.0 04/18/17 13:00 83 22 125/60 100 Nasal Cannula 6.0 04/18/17 12:00 97.9 84 24 166/58 100 Nasal Cannula 6.0 04/18/17 12:00 6.0 04/18/17 12:00 75 04/18/17 11:50 Nasal Cannula 6.0 04/18/17 11:50 100 Nasal Cannula 6.0 04/18/17 11:45 Nasal Cannula 6.0 04/18/17 11:40 83 23 150/59 100 Nasal Cannula 6.0 04/18/17 11:05 73 26 04/18/17 11:00 78 22 135/62 100 Mechanical Ventilator 40 Intake and Output 04/19/17 04/20/17 19:00 07:00 Intake Total 0 ml Output Total 1000 ml Balance -1000 ml Intake Oral 0 ml Output Urine Total 0 ml Hemodialysis UF 1000 ml Laboratory Tests 04/19/17 03:00: White Blood Count 28.9#*H, Red Blood Count 2.93L, Hemoglobin 10.7L, Hematocrit 32.3L, Mean Corpuscular Volume 110H, Mean Corpuscular Hemoglobin 36.5H, Mean Corpuscular Hemoglobin Concent 33.1, Red Cell Distribution Width 16.7H, Platelet Count 146L, Mean Platelet Volume 8.1, Neutrophils (%) (Auto) , Lymphocytes (%) (Auto) , Monocytes (%) (Auto) , Eosinophils (%) (Auto) , Basophils (%) (Auto) , Differential Total Cells Counted 100, Neutrophils % ( Manual) 83H, Lymphocytes % (Manual) 8L, Monocytes % (Manual) 9, Eosinophils % ( Manual) 0, Basophils % (Manual) 0, Band Neutrophils 0, Platelet Estimate Adequate, Platelet Morphology Normal, Polychromasia 1+, Hypochromasia 1+, Anisocytosis 1+, Macrocytosis 1+, Sodium Level 142, Potassium Level 3.7, Chloride Level 96L, Carbon Dioxide Level 27, Anion Gap 19H, Blood Urea Nitrogen 47H, Creatinine 8.5H, Estimat Glomerular Filtration Rate , Glucose Level 191H, Calcium Level 9.0, Phosphorus Level 9.7H, Magnesium Level 2.3, Total Bilirubin 0.3, Aspartate Amino Transf (AST/SGOT) 28, Alanine Aminotransferase (ALT/SGPT) 15, Alkaline Phosphatase 163H, Total Protein 6.8, Albumin 3.4L, Globulin 3.4, Albumin/Globulin Ratio 1.0 04/19/17 09:38: Arterial Blood pH 7.304L, Arterial Blood Partial Pressure CO2 53.2H, Arterial Blood Partial Pressure O2 79.9, Arterial Blood HCO3 25.8, Arterial Blood Oxygen Saturation 93.5, Arterial Blood Base Excess -1.0, Mike Test Positive Height (Feet): 5 Height (Inches): 8.00 Weight (Pounds): 172 General Appearance: mild distress EENT: other - on ventimask Cardiovascular: tachycardia Respiratory/Chest: decreased breath sounds Abdomen: soft LORENZA SANTOS Apr 19, 2017 10:40
--- NOTE | 2017-04-19 11:00 | Electroencephalogram ---
ELECTROENCEPHALOGRAM DATE OF PROCEDURE: 04/17/2017 REQUESTING PHYSICIAN: Leola Craevn M.D. HISTORY: This EEG was performed on an 82-year-old gentleman with a history of multiple medical problems, who was hospitalized for an acute infectious process leading to worsening of his myasthenia gravis and significant respiratory problems for which he needed to be intubated. The patient had some abnormal movements and thus this EEG was ordered to evaluate the patient for ictal or interictal phenomena. TECHNICAL NOTE: This EEG was performed on a [employer] with electrodes placed on the scalp according to the International 10-20 system. [id number] and [id number] montages were used. The EEG was technically satisfactory and was performed in the awake and drowsy states. OBSERVATIONS: In the best awake state, the background activity consisted of 7-7.5 Hz theta activity with some intermixed 8 Hz alpha frequencies. Drowsiness was characterized by slowing of the background in the 5-6 Hz theta range with intermixed delta frequencies. No focal abnormalities or epileptiform discharges were seen. IMPRESSION: This is an abnormal EEG characterized by slowing of the background in the fast theta range with intermixed alpha in the best awake state. COMMENT: This study is consistent with a mild encephalopathy. Tim Ronquillo M.D., M.S.P.H. DR: SEBASTIAN JOB#: [id number] [facility]
[2017-04-19 11:22] LABS: OTHERS PATHOLOGIST COMMENT
--- NOTE | 2017-04-19 11:54 | Diagnostic Imaging Report ---
Indication: Dyspnea Comparison: 04/18/17 A single view chest radiograph was obtained. Findings: There is a right jugular permacath in good position. The heart is enlarged. There is mild basilar atelectasis. There is a pacemaker on the left. Bones are unremarkable. Impression: No acute findings
[2017-04-19 12:46] LABS: APPEARANCE, BODY FLUID CLEAR; BD FL SOURCE PERITONEAL; BD FL VOLUME 70 mL; BODY FLUID NUCLEATED CELLS 119 /CUMM; BODY FLUID RBC 313 /CUMM; MONONUCLEAR WBC 58 %; POLYMORPHONUCLEAR WBC 33 %
[2017-04-19 14:53] LABS: MEAN CORPUSCULAR HEMOGLOBIN 34.4 PG (27.0-31.0); MEAN CORPUSCULAR HGB CONC 31.7 G/DL (32.0-36.0); MEAN CORPUSCULAR VOLUME 108 FL (80-99); PLATELET COUNT 119 K/UL (150-450)
[2017-04-19 14:57] LABS: WHITE BLOOD COUNT 41.9 K/UL (4.8-10.8)
--- NOTE | 2017-04-19 16:22 | Infectious Diseases Prog Note ---
Assessment/Plan Assessment/Plan IMPRESSION: 1) Severe sepsis and septic shock with hypotension and leukocytosis. infectious source not identified. h/o abdominal MSSA skin/soft tissue abscess, no evidence of recurrence. hypotension has resolved, tolerating HD. 2) Other acute respiratory failure with markedly elevated pro BNP of 21k on admission. 3) ruled out for line-associated bacteremia 4) probable PD cath associated peritonitis on D#4 of abx. continue therapy. s/p abd u/s yesterday peritoneal fluid today does have >100 WBC, but PMNs <50%, so this could be either partially treated PD peritonitis or negative. pending gram stain and culture 4) leukocytosis, profound leukamoid reaction today 5) afebrile 6) chronic anemia 7) ESRD, s/p net 1L neg today 8) severe pulmonary HTN--seen on [id number] TTE 9) lactic acidosis, improving 10) obstipation x5 days, assoicated with poor PO intake 11) possible MDS, which may be contributing to his leukocytosis. RECOMMENDATION: --Continue IV vancomycin, amikacin, and aztreonam empirically D#4 renally dosed --sputum cx growing pseudomonas that I think is a colonizer here based on absence of infiltrate on cxr. --f/u blood cx from 04/15, so far ngtd --PD fluid cell count is equivocal. f/u pending gram stain and culture --r/o ileus which can be associated with C diff. KUB now. If positive and still no stool, we can try empiric IV flagyl. he is s/p one dose at admission. --repeat serum LAC now --follow CBC --if profound leukocytosis persists, given his fairly recent hx of MSSA skin/ soft tissue abscess, and imaging suggestive of cirrhosis, will need CT a/p with contrast (timed with f/u HD) to r/o occult intraabominal abscess. Subjective ROS Limited/Unobtainable: Yes Allergies: Coded Allergies: GERTRUDIS INHIBITORS (Unverified Allergy, Unknown, 04/15/17) LEVOFLOXACIN (Unverified Allergy, Unknown, 04/15/17) PENICILLINS (Verified Allergy, Unknown, 04/15/17) Objective Vital Signs Last 24 Hour Vital Signs Date Time Temp Pulse Resp B/P (MAP) Pulse Ox O2 Delivery O2 Flow Rate FiO2 04/19/17 15:00 80 25 157/63 99 Nasal Cannula 4.0 04/19/17 14:00 82 25 167/73 98 Nasal Cannula 3.0 04/19/17 13:00 87 25 136/59 100 Nasal Cannula 3.0 04/19/17 12:00 85 04/19/17 12:00 97.9 85 21 133/77 99 Bi-pap 40 04/19/17 11:27 40 04/19/17 11:19 88 22 97 Full Face 40 04/19/17 11:00 88 28 109/77 99 Bi-pap 40 04/19/17 10:45 88 28 151/59 99 Nasal Cannula 3.0 04/19/17 10:00 89 27 151/68 99 Venturi Mask 40 04/19/17 09:00 85 22 135/53 100 Venturi Mask 40 04/19/17 08:00 40.0 04/19/17 08:00 87 04/19/17 08:00 97.5 88 22 115/59 98 Bi-pap 40 04/19/17 08:00 Bi-pap 40 04/19/17 07:00 82 22 86/48 99 Bi-pap 04/19/17 06:50 100 Bi-pap 40 04/19/17 06:50 90 19 100 Facial 40 04/19/17 06:20 Bi-pap 40 04/19/17 06:00 90 22 112/88 99 Bi-pap 04/19/17 05:18 86 19 95 Facial 40 04/19/17 05:00 84 22 137/49 99 Nasal Cannula 2.0 04/19/17 04:45 96.2 80 18 177/90 100 Bi-pap 40 04/19/17 04:45 Bi-pap 40 04/19/17 04:00 89 16 96 Facial 40 04/19/17 04:00 97.2 82 22 177/64 99 Bi-pap 40 04/19/17 04:00 40 04/19/17 04:00 84 04/19/17 03:00 82 22 173/78 94 Nasal Cannula 2.0 04/19/17 02:00 79 22 160/44 95 Nasal Cannula 2.0 04/19/17 01:00 80 22 166/53 95 Nasal Cannula 2.0 04/19/17 00:00 97.6 72 20 135/46 97 Nasal Cannula 2.0 04/19/17 00:00 2.0 04/18/17 23:00 76 26 148/51 97 Nasal Cannula 2.0 04/18/17 22:15 145/51 04/18/17 22:01 85 12 Bi-pap 40 04/18/17 22:00 77 21 165/74 100 Nasal Cannula 3.0 04/18/17 21:59 85 12 97 Nasal 40 04/18/17 21:00 78 22 168/60 90 Nasal Cannula 6.0 04/18/17 20:00 97.8 78 21 146/65 99 Nasal Cannula 6.0 04/18/17 20:00 75 04/18/17 20:00 6.0 04/18/17 19:02 99 Nasal Cannula 5.0 04/18/17 19:02 Nasal Cannula 5.0 04/18/17 19:00 83 22 151/71 98 Nasal Cannula 6.0 04/18/17 18:00 83 22 151/71 98 Nasal Cannula 6.0 04/18/17 17:00 80 21 132/57 100 Nasal Cannula 6.0 Height (Feet): 5 Height (Inches): 8.00 Weight (Pounds): 172 Objective GENERAL: The patient is awake, alert, and communicated with nodding. Denies abdominal pain. HEAD AND NECK: extubated HEART: Normal rate. 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 Have PermCath in the right side of the chest. no erythema, no fluctuance, no edema, no pain to palpation LUNGS: scattered rhonchi. ABDOMEN: Soft. There is a peritoneal dialysis catheter that is healthy appearing. low midline surgical scar that is well healed. no palpable mass or fluctuance or erythema. EXTREMITIES: No edema. He has a right femoral line. : no rash, no lawler in place. Laboratory Tests Test 04/19/17 03:00 04/19/17 09:38 04/19/17 10:10 04/19/17 14:30 White Blood Count 28.9 K/UL (4.8-10.8) #*H 41.9 K/UL (4.8-10.8) *H Red Blood Count 2.93 M/UL (4.70-6.10) L 2.90 M/UL (4.70-6.10) L Hemoglobin 10.7 G/DL (14.2-18.0) L 10.0 G/DL (14.2-18.0) L Hematocrit 32.3 % (42.0-52.0) L 31.4 % (42.0-52.0) L Mean Corpuscular Volume 110 FL (80-99) H 108 FL (80-99) H Mean Corpuscular Hemoglobin 36.5 PG (27.0-31.0) H 34.4 PG (27.0-31.0) H Mean Corpuscular Hemoglobin Concent 33.1 G/DL (32.0-36.0) 31.7 G/DL (32.0-36.0) L Red Cell Distribution Width 16.7 % (11.6-14.8) H 17.0 % (11.6-14.8) H Platelet Count 146 K/UL (150-450) L 119 K/UL (150-450) L Mean Platelet Volume 8.1 FL (6.5-10.1) 7.0 FL (6.5-10.1) Neutrophils (%) (Auto) % (45.0-75.0) % (45.0-75.0) Lymphocytes (%) (Auto) % (20.0-45.0) % (20.0-45.0) Monocytes (%) (Auto) % (1.0-10.0) % (1.0-10.0) Eosinophils (%) (Auto) % (0.0-3.0) % (0.0-3.0) Basophils (%) (Auto) % (0.0-2.0) % (0.0-2.0) Differential Total Cells Counted 100 Neutrophils % (Manual) 83 % (45-75) H Pending Lymphocytes % (Manual) 8 % (20-45) L Pending Monocytes % (Manual) 9 % (1-10) Eosinophils % (Manual) 0 % (0-3) Basophils % (Manual) 0 % (0-2) Band Neutrophils 0 % (0-8) Platelet Estimate Adequate Pending Platelet Morphology Normal Pending Polychromasia 1+ Hypochromasia 1+ Anisocytosis 1+ Macrocytosis 1+ Sodium Level 142 mEQ/L (135-145) Potassium Level 3.7 mEQ/L (3.4-4.9) Chloride Level 96 mEQ/L (98-107) L Carbon Dioxide Level 27 mEQ/L (20-30) Anion Gap 19 (5-15) H Blood Urea Nitrogen 47 mg/dL (7-23) H Creatinine 8.5 mg/dL (0.7-1.2) H Estimat Glomerular Filtration Rate mL/min (>60) Glucose Level 191 mg/dL (74-106) H Calcium Level 9.0 mg/dL (8.6-10.2) Phosphorus Level 9.7 mg/dL (2.5-4.8) H Magnesium Level 2.3 mg/dL (1.7-2.5) Total Bilirubin 0.3 mg/dL (0.0-1.2) Aspartate Amino Transf (AST/SGOT) 28 U/L (5-40) Alanine Aminotransferase (ALT/SGPT) 15 U/L (3-41) Alkaline Phosphatase 163 U/L (40-129) H Total Protein 6.8 g/dL (6.6-8.7) Albumin 3.4 g/dL (3.5-5.2) L Globulin 3.4 g/dL Albumin/Globulin Ratio 1.0 (1.0-2.7) Arterial Blood pH 7.304 (7.350-7.450) Arterial Blood Partial Pressure CO2 53.2 mmHg (35.0-45.0) H Arterial Blood Partial Pressure O2 79.9 mmHg (75.0-100.0) Arterial Blood HCO3 25.8 mmol/L (22.0-26.0) Arterial Blood Oxygen Saturation 93.5 % (92.0-98.0) Arterial Blood Base Excess -1.0 Mike Test Positive Body Fluid Source Peritoneal Body Fluid Volume 70 mL Body Fluid Appearance Clear Body Fluid RBC 313 /CUMM Body Fluid Total Nucleated Cells 119 /CUMM Body Fluid Polynuclear WBCs (%) 33 % Body Fluid Mononuclear WBCs (%) 58 % Body Fluid Mesothelial Cells (%) 9 % Current Medications Medications (Trade) Dose Ordered Sig/[place] Route PRN Reason Start Time Stop Time Status Last Admin Dose Admin Acetaminophen (Tylenol) 650 mg Q4H PRN ORAL fever 04/15/17 22:15 05/15/17 22:14 Albuterol/ Ipratropium (DuoNeb 0.5-3(2.5)mg/3ml) 3 ml EVERY 4 HOURS PRN HHN Shortness of Breath 04/15/17 22:15 04/20/17 22:14 Allopurinol (Zyloprim) 100 mg DAILY ORAL 04/16/17 09:00 05/16/17 08:59 04/19/17 09:57 Amikacin Protocol (Amikacin pharmacy to dose) 1 ea DAILY PRN MISC PHARM 04/16/17 06:00 05/16/17 05:59 Atorvastatin Calcium (Lipitor) 10 mg BEDTIME ORAL 04/16/17 21:00 05/16/17 20:59 04/18/17 20:42 Aztreonam 0.5 gm/ Dextrose 55 ml @ 110 mls/hr Q12HR IVPB 04/16/17 22:00 04/23/17 21:59 04/19/17 09:58 Chlorhexidine Gluconate (Lise-Hex 2%) 1 applic BEDTIME TOPIC 04/16/17 21:00 05/16/17 20:59 04/18/17 20:51 Dextrose (Dextrose 50%) STAT PRN IV Hypoglycemia 04/16/17 07:35 05/16/17 07:34 Insulin Aspart (NovoLOG) EVERY 6 HOURS SUBQ 04/16/17 12:00 05/16/17 11:59 04/19/17 06:11 Levothyroxine Sodium (Synthroid) 50 mcg DAILY@0630 ORAL 04/16/17 06:30 05/16/17 06:29 04/19/17 06:09 Lorazepam (Ativan 2mg/ml 1ml) 2 mg Q2H PRN IV For Anxiety 04/17/17 10:15 04/24/17 10:14 04/18/17 21:02 Morphine Sulfate (Morphine Sulfate) 4 mg EVERY 4 HOURS PRN IVP Severe Pain (Pain Scale 7-10) 04/15/17 22:15 04/22/17 22:14 04/16/17 19:44 Norepinephrine Bitartrate 4 mg/ Dextrose 254 ml @ 0 mls/hr Q24H IV 04/15/17 22:15 05/15/17 22:14 04/15/17 23:05 Ondansetron HCl (Zofran) 4 mg Q6H PRN IVP Nausea & Vomiting 04/15/17 22:15 05/15/17 22:14 Pantoprazole (Protonix) 40 mg EVERY 12 HOURS ORAL 04/18/17 21:00 05/18/17 20:59 04/19/17 09:57 Paroxetine HCl (Paxil) 10 mg DAILY ORAL 04/16/17 11:00 05/16/17 10:59 04/19/17 09:57 Polyethylene Glycol (Miralax) 17 gm DAILYPRN PRN ORAL Constipation 04/15/17 22:15 05/15/17 22:14 Pyridostigmine [place] (Mestinon) 60 mg Q8HR ORAL 04/16/17 22:00 05/16/17 21:59 04/19/17 14:23 Vancomycin HCl (Vanco rx to dose) 1 ea DAILY PRN MISC RX DOSING 04/18/17 10:30 05/16/17 08:59 Tai Moraes M.D. Apr 19, 2017 16:21
[2017-04-19 16:26] LABS: BAND NEUTROPHILS % (MANUAL) 5 % (0-8); LYMPHOCYTES % (MANUAL) 3 % (20-45); NEUTROPHILS % (MANUAL) 91 % (45-75); TOTAL CELLS COUNTED 100
--- NOTE | 2017-04-19 16:29 | Neurology Progress Note ---
Interim History Interim History Complaints: intubated Events: during HD noted patoxysmal facial twitching x1min, lethatgy Interim History Mr. Lira is subdued today. He is more encephalopathic. He is generally weaker. He denies any new neurologic symptoms. He is more short of breath. His voice is less hoarse. He feels that his Myasthenia Gravis is controlled. Review of Systems Neuro Review of Systems Benign. Objective Physical Exam Last Vital Signs Date Time Temp Pulse Resp B/P (MAP) Pulse Ox O2 Delivery O2 Flow Rate FiO2 04/19/17 15:00 80 25 157/63 99 Nasal Cannula 4.0 04/19/17 12:00 97.9 40 Laboratory Tests Test 04/19/17 03:00 04/19/17 09:38 04/19/17 10:10 04/19/17 14:30 White Blood Count 28.9 K/UL (4.8-10.8) #*H 41.9 K/UL (4.8-10.8) *H Red Blood Count 2.93 M/UL (4.70-6.10) L 2.90 M/UL (4.70-6.10) L Hemoglobin 10.7 G/DL (14.2-18.0) L 10.0 G/DL (14.2-18.0) L Hematocrit 32.3 % (42.0-52.0) L 31.4 % (42.0-52.0) L Mean Corpuscular Volume 110 FL (80-99) H 108 FL (80-99) H Mean Corpuscular Hemoglobin 36.5 PG (27.0-31.0) H 34.4 PG (27.0-31.0) H Mean Corpuscular Hemoglobin Concent 33.1 G/DL (32.0-36.0) 31.7 G/DL (32.0-36.0) L Red Cell Distribution Width 16.7 % (11.6-14.8) H 17.0 % (11.6-14.8) H Platelet Count 146 K/UL (150-450) L 119 K/UL (150-450) L Mean Platelet Volume 8.1 FL (6.5-10.1) 7.0 FL (6.5-10.1) Neutrophils (%) (Auto) % (45.0-75.0) % (45.0-75.0) Lymphocytes (%) (Auto) % (20.0-45.0) % (20.0-45.0) Monocytes (%) (Auto) % (1.0-10.0) % (1.0-10.0) Eosinophils (%) (Auto) % (0.0-3.0) % (0.0-3.0) Basophils (%) (Auto) % (0.0-2.0) % (0.0-2.0) Differential Total Cells Counted 100 Neutrophils % (Manual) 83 % (45-75) H Pending Lymphocytes % (Manual) 8 % (20-45) L Pending Monocytes % (Manual) 9 % (1-10) Eosinophils % (Manual) 0 % (0-3) Basophils % (Manual) 0 % (0-2) Band Neutrophils 0 % (0-8) Platelet Estimate Adequate Pending Platelet Morphology Normal Pending Polychromasia 1+ Hypochromasia 1+ Anisocytosis 1+ Macrocytosis 1+ Sodium Level 142 mEQ/L (135-145) Potassium Level 3.7 mEQ/L (3.4-4.9) Chloride Level 96 mEQ/L (98-107) L Carbon Dioxide Level 27 mEQ/L (20-30) Anion Gap 19 (5-15) H Blood Urea Nitrogen 47 mg/dL (7-23) H Creatinine 8.5 mg/dL (0.7-1.2) H Estimat Glomerular Filtration Rate mL/min (>60) Glucose Level 191 mg/dL (74-106) H Calcium Level 9.0 mg/dL (8.6-10.2) Phosphorus Level 9.7 mg/dL (2.5-4.8) H Magnesium Level 2.3 mg/dL (1.7-2.5) Total Bilirubin 0.3 mg/dL (0.0-1.2) Aspartate Amino Transf (AST/SGOT) 28 U/L (5-40) Alanine Aminotransferase (ALT/SGPT) 15 U/L (3-41) Alkaline Phosphatase 163 U/L (40-129) H Total Protein 6.8 g/dL (6.6-8.7) Albumin 3.4 g/dL (3.5-5.2) L Globulin 3.4 g/dL Albumin/Globulin Ratio 1.0 (1.0-2.7) Arterial Blood pH 7.304 (7.350-7.450) Arterial Blood Partial Pressure CO2 53.2 mmHg (35.0-45.0) H Arterial Blood Partial Pressure O2 79.9 mmHg (75.0-100.0) Arterial Blood HCO3 25.8 mmol/L (22.0-26.0) Arterial Blood Oxygen Saturation 93.5 % (92.0-98.0) Arterial Blood Base Excess -1.0 Mike Test Positive Body Fluid Source Peritoneal Body Fluid Volume 70 mL Body Fluid Appearance Clear Body Fluid RBC 313 /CUMM Body Fluid Total Nucleated Cells 119 /CUMM Body Fluid Polynuclear WBCs (%) 33 % Body Fluid Mononuclear WBCs (%) 58 % Body Fluid Mesothelial Cells (%) 9 % Neurologic Exam Objective PHYSICAL EXAMINATION: GENERAL: A well-developed, well-nourished gentleman, in no acute distress. HEENT: Benign. NECK: Supple. No meningeal signs. NEUROLOGIC EXAMINATION: MENTAL STATUS EXAMINATION: He was awake and alert. He was oriented to self and [facility] only He was unable to cooperate for further mental status tests. SPEECH: He was less hoarse. LANGUAGE: No aphasia. CRANIAL NERVE EXAMINATION: II through XII intact. MOTOR EXAMINATION: Normal muscle tone. Mild generalized wasting. G 5/5 power in all muscle groups except for G 4+/5 in the iliopsoas, with no fatigability. SENSORY EXAMINATION: Normal to light touch and graphesthesia. REFLEXES: 2+ and bilaterally symmetric at the biceps,triceps, brachioradialis, and knees. 0 at both ankles. Plantar responses were flexor bilaterally. Impression/Recommendations Diagnostic Impression 1. Mr. 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 2. He is more encephalopathic and not as bright as he was yesterday. 3. On neurologic examination at this time he does have worsening of his cognitive dysfunction, a mild paraparesis, hoarseness of voice, but no muscle fatigability. 4. Laboratory data reveal that he is retaining CO2, his WBC count is up to 41, 000 and his other electrolytes are also abnormal. 5. His multifactorial encephalopathy is worse today. 6. His MG is controlled. Recommendations 1. Continue Mestinon 60 mg tid. 2. Increase activity as tolerated. 3. Continue treatment of other intercurrent medical problems. Abel Cornejo M.D., M.S.P.H. Neurologist & Clinical Neurophysiologist ABEL CORNEJO Apr 19, 2017 16:29
[2017-04-19 16:31] LABS: ANISOCYTOSIS 2+; BASOPHILS % (MANUAL) 0 % (0-2); EOSINOPHILS % (MANUAL) 0 % (0-3); HYPOCHROMASIA 1+; PLATELET ESTIMATE DECREASED; POLYCHROMASIA 1+
[2017-04-19 16:32] LABS: MACROCYTES 2+
[2017-04-19 16:33] LABS: PLATELET MORPHOLOGY NORMAL
--- NOTE | 2017-04-19 16:38 | General Progress Note ---
Assessment/Plan Assessment/Plan A/P # Anemia 2/2 chronic disease --> follow up with Dr. Shah if pt discharged --> monitor counts # Severe sepsis with leukocytosis --> id following, r/o intraabdominal abscess # Thrombocytopenia 2/2 chronic liver disease --> abdominal US reviewed # ARF # ESRD Subjective Constitutional: Reports: no symptoms HEENT: Reports: no symptoms Cardiovascular: Reports: no symptoms Respiratory: Reports: no symptoms Gastrointestinal/Abdominal: Reports: no symptoms Genitourinary: Reports: no symptoms Neurologic/Psychiatric: Reports: no symptoms Endocrine: Reports: no symptoms Hematologic/Lymphatic: Reports: anemia Allergies: Coded Allergies: GERTRUDIS INHIBITORS (Unverified Allergy, Unknown, 04/15/17) LEVOFLOXACIN (Unverified Allergy, Unknown, 04/15/17) PENICILLINS (Verified Allergy, Unknown, 04/15/17) Subjective s/p extubation, dialysis, wbc count elevated Objective Last 24 Hour Vital Signs Date Time Temp Pulse Resp B/P (MAP) Pulse Ox O2 Delivery O2 Flow Rate FiO2 04/19/17 15:00 80 25 157/63 99 Nasal Cannula 4.0 04/19/17 14:00 82 25 167/73 98 Nasal Cannula 3.0 04/19/17 13:00 87 25 136/59 100 Nasal Cannula 3.0 04/19/17 12:00 85 04/19/17 12:00 97.9 85 21 133/77 99 Bi-pap 40 04/19/17 11:27 40 04/19/17 11:19 88 22 97 Full Face 40 04/19/17 11:00 88 28 109/77 99 Bi-pap 40 04/19/17 10:45 88 28 151/59 99 Nasal Cannula 3.0 04/19/17 10:00 89 27 151/68 99 Venturi Mask 40 04/19/17 09:00 85 22 135/53 100 Venturi Mask 40 04/19/17 08:00 40.0 04/19/17 08:00 87 04/19/17 08:00 97.5 88 22 115/59 98 Bi-pap 40 04/19/17 08:00 Bi-pap 40 04/19/17 07:00 82 22 86/48 99 Bi-pap 04/19/17 06:50 100 Bi-pap 40 04/19/17 06:50 90 19 100 Facial 40 04/19/17 06:20 Bi-pap 40 04/19/17 06:00 90 22 112/88 99 Bi-pap 04/19/17 05:18 86 19 95 Facial 40 04/19/17 05:00 84 22 137/49 99 Nasal Cannula 2.0 04/19/17 04:45 96.2 80 18 177/90 100 Bi-pap 40 04/19/17 04:45 Bi-pap 40 04/19/17 04:00 89 16 96 Facial 40 04/19/17 04:00 97.2 82 22 177/64 99 Bi-pap 40 04/19/17 04:00 40 04/19/17 04:00 84 04/19/17 03:00 82 22 173/78 94 Nasal Cannula 2.0 04/19/17 02:00 79 22 160/44 95 Nasal Cannula 2.0 04/19/17 01:00 80 22 166/53 95 Nasal Cannula 2.0 04/19/17 00:00 97.6 72 20 135/46 97 Nasal Cannula 2.0 04/19/17 00:00 2.0 04/18/17 23:00 76 26 148/51 97 Nasal Cannula 2.0 04/18/17 22:15 145/51 04/18/17 22:01 85 12 Bi-pap 40 04/18/17 22:00 77 21 165/74 100 Nasal Cannula 3.0 04/18/17 21:59 85 12 97 Nasal 40 04/18/17 21:00 78 22 168/60 90 Nasal Cannula 6.0 04/18/17 20:00 97.8 78 21 146/65 99 Nasal Cannula 6.0 04/18/17 20:00 75 04/18/17 20:00 6.0 04/18/17 19:02 99 Nasal Cannula 5.0 04/18/17 19:02 Nasal Cannula 5.0 04/18/17 19:00 83 22 151/71 98 Nasal Cannula 6.0 04/18/17 18:00 83 22 151/71 98 Nasal Cannula 6.0 04/18/17 17:00 80 21 132/57 100 Nasal Cannula 6.0 Intake and Output 04/19/17 04/20/17 19:00 07:00 Intake Total 969 ml Output Total 1050 ml Balance -81 ml Intake Oral 884 ml IV Total 55 ml Other 30 ml Output Urine Total 0 ml Hemodialysis UF 1000 ml Other 50 ml Laboratory Tests 04/19/17 03:00: White Blood Count 28.9#*H, Red Blood Count 2.93L, Hemoglobin 10.7L, Hematocrit 32.3L, Mean Corpuscular Volume 110H, Mean Corpuscular Hemoglobin 36.5H, Mean Corpuscular Hemoglobin Concent 33.1, Red Cell Distribution Width 16.7H, Platelet Count 146L, Mean Platelet Volume 8.1, Neutrophils (%) (Auto) , Lymphocytes (%) (Auto) , Monocytes (%) (Auto) , Eosinophils (%) (Auto) , Basophils (%) (Auto) , Differential Total Cells Counted 100, Neutrophils % ( Manual) 83H, Lymphocytes % (Manual) 8L, Monocytes % (Manual) 9, Eosinophils % ( Manual) 0, Basophils % (Manual) 0, Band Neutrophils 0, Platelet Estimate Adequate, Platelet Morphology Normal, Polychromasia 1+, Hypochromasia 1+, Anisocytosis 1+, Macrocytosis 1+, Sodium Level 142, Potassium Level 3.7, Chloride Level 96L, Carbon Dioxide Level 27, Anion Gap 19H, Blood Urea Nitrogen 47H, Creatinine 8.5H, Estimat Glomerular Filtration Rate , Glucose Level 191H, Calcium Level 9.0, Phosphorus Level 9.7H, Magnesium Level 2.3, Total Bilirubin 0.3, Aspartate Amino Transf (AST/SGOT) 28, Alanine Aminotransferase (ALT/SGPT) 15, Alkaline Phosphatase 163H, Total Protein 6.8, Albumin 3.4L, Globulin 3.4, Albumin/Globulin Ratio 1.0 04/19/17 09:38: Arterial Blood pH 7.304L, Arterial Blood Partial Pressure CO2 53.2H, Arterial Blood Partial Pressure O2 79.9, Arterial Blood HCO3 25.8, Arterial Blood Oxygen Saturation 93.5, Arterial Blood Base Excess -1.0, Mike Test Positive 04/19/17 10:10: Body Fluid Source Peritoneal, Body Fluid Volume 70, Body Fluid Appearance Clear , Body Fluid RBC 313, Body Fluid Total Nucleated Cells 119, Body Fluid Polynuclear WBCs (%) 33, Body Fluid Mononuclear WBCs (%) 58, Body Fluid Mesothelial Cells (%) 9 04/19/17 14:30: White Blood Count 41.9*H, Red Blood Count 2.90L, Hemoglobin 10.0L, Hematocrit 31.4L, Mean Corpuscular Volume 108H, Mean Corpuscular Hemoglobin 34.4H, Mean Corpuscular Hemoglobin Concent 31.7L, Red Cell Distribution Width 17.0H, Platelet Count 119L, Mean Platelet Volume 7.0, Neutrophils (%) (Auto) , Lymphocytes (%) (Auto) , Monocytes (%) (Auto) , Eosinophils (%) (Auto) , Basophils (%) (Auto) , Differential Total Cells Counted 100, Neutrophils % ( Manual) 91H, Lymphocytes % (Manual) 3L, Monocytes % (Manual) 1, Eosinophils % ( Manual) 0, Basophils % (Manual) 0, Band Neutrophils 5, Platelet Estimate DecreasedL, Platelet Morphology Normal, Polychromasia 1+, Hypochromasia 1+, Anisocytosis 2+, Macrocytosis 2+ Height (Feet): 5 Height (Inches): 8.00 Weight (Pounds): 172 General Appearance: no apparent distress EENT: normal ENT inspection Neck: normal alignment Cardiovascular: normal peripheral pulses Respiratory/Chest: chest wall non-tender Extremities: normal inspection Skin: normal pigmentation, warm/dry Davey Olsen Apr 19, 2017 16:38
[2017-04-19] MEDS ORDERED: NS 275ml ONE (17:19)
--- NOTE | 2017-04-19 19:00 | Cardiology Progress Note ---
Assessment/Plan Assessment/Plan 1. Septic shock. 2. Metabolic acidosis. 3. Hypotension. 4. History of proximal episodes of atrial fibrillation. 5. History of permanent pacemaker implantation. 6. Myasthenia gravis history. 7. History of incision and drainage of an umbilical superficial MSSA abscess. 8. History of congestive heart failure. 9. Pulmonary hypertension. 10. End-stage renal disease. 11. Anemia. 12. Questionable myelodysplastic syndrome. 13. Possibly smoldering abscess confused sig ellvated bp has ? onf mylodysplastic syndroem and his baselin wbc 12k per pmd today wbc 49 ? leukemoid reaction heme now following bp is fine to consider resumption of adcirca soon pco not sig elevated neuro noted blood cx neg ? peritoneal dialysis associted periotonitis noted plan for ct d/w . Subjective Cardiovascular: Denies: chest pain, lightheadedness Respiratory: Denies: shortness of breath Gastrointestinal/Abdominal: Denies: abdominal pain Genitourinary: Denies: burning Subjective confused per Objective Last 24 Hour Vital Signs Date Time Temp Pulse Resp B/P (MAP) Pulse Ox O2 Delivery O2 Flow Rate FiO2 04/19/17 18:00 85 28 156/65 95 Nasal Cannula 4.0 04/19/17 17:00 85 26 160/87 99 Nasal Cannula 4.0 04/19/17 16:00 77 04/19/17 16:00 4.0 04/19/17 16:00 98.3 87 26 159/63 99 Nasal Cannula 4.0 04/19/17 15:00 80 25 157/63 99 Nasal Cannula 4.0 04/19/17 14:00 82 25 167/73 98 Nasal Cannula 3.0 04/19/17 13:00 87 25 136/59 100 Nasal Cannula 3.0 04/19/17 12:00 85 04/19/17 12:00 97.9 85 21 133/77 99 Bi-pap 40 04/19/17 11:27 40 04/19/17 11:19 88 22 97 Full Face 40 04/19/17 11:00 88 28 109/77 99 Bi-pap 40 04/19/17 10:45 88 28 151/59 99 Nasal Cannula 3.0 04/19/17 10:00 89 27 151/68 99 Venturi Mask 40 8/25/17 09:00 85 22 135/53 100 Venturi Mask 40 04/19/17 08:00 40.0 04/19/17 08:00 87 04/19/17 08:00 97.5 88 22 115/59 98 Bi-pap 40 04/19/17 08:00 Bi-pap 40 04/19/17 07:00 82 22 86/48 99 Bi-pap 04/19/17 06:50 100 Bi-pap 40 04/19/17 06:50 90 19 100 Facial 40 04/19/17 06:20 Bi-pap 40 04/19/17 06:00 90 22 112/88 99 Bi-pap 04/19/17 05:18 86 19 95 Facial 40 04/19/17 05:00 84 22 137/49 99 Nasal Cannula 2.0 04/19/17 04:45 96.2 80 18 177/90 100 Bi-pap 40 04/19/17 04:45 Bi-pap 40 04/19/17 04:00 89 16 96 Facial 40 04/19/17 04:00 97.2 82 22 177/64 99 Bi-pap 40 04/19/17 04:00 40 04/19/17 04:00 84 04/19/17 03:00 82 22 173/78 94 Nasal Cannula 2.0 04/19/17 02:00 79 22 160/44 95 Nasal Cannula 2.0 04/19/17 01:00 80 22 166/53 95 Nasal Cannula 2.0 04/19/17 00:00 97.6 72 20 135/46 97 Nasal Cannula 2.0 04/19/17 00:00 2.0 04/18/17 23:00 76 26 148/51 97 Nasal Cannula 2.0 04/18/17 22:15 145/51 04/18/17 22:01 85 12 Bi-pap 40 04/18/17 22:00 77 21 165/74 100 Nasal Cannula 3.0 04/18/17 21:59 85 12 97 Nasal 40 04/18/17 21:00 78 22 168/60 90 Nasal Cannula 6.0 04/18/17 20:00 97.8 78 21 146/65 99 Nasal Cannula 6.0 04/18/17 20:00 75 04/18/17 20:00 6.0 04/18/17 19:02 99 Nasal Cannula 5.0 04/18/17 19:02 Nasal Cannula 5.0 04/18/17 19:00 83 22 151/71 98 Nasal Cannula 6.0 General Appearance: no apparent distress, alert Neck: supple Cardiovascular: normal rate, regular rhythm Respiratory/Chest: lungs clear Abdomen: normal bowel sounds, non tender, soft Extremities: no swelling Intake and Output 04/19/17 04/20/17 19:00 07:00 Intake Total 1219 ml Output Total 1050 ml Balance 169 ml Intake Oral 1134 ml IV Total 55 ml Other 30 ml Output Urine Total 0 ml Hemodialysis UF 1000 ml Other 50 ml Laboratory Tests Test 04/19/17 03:00 04/19/17 09:38 04/19/17 10:10 04/19/17 14:30 White Blood Count 28.9 K/UL (4.8-10.8) #*H 41.9 K/UL (4.8-10.8) *H Red Blood Count 2.93 M/UL (4.70-6.10) L 2.90 M/UL (4.70-6.10) L Hemoglobin 10.7 G/DL (14.2-18.0) L 10.0 G/DL (14.2-18.0) L Hematocrit 32.3 % (42.0-52.0) L 31.4 % (42.0-52.0) L Mean Corpuscular Volume 110 FL (80-99) H 108 FL (80-99) H Mean Corpuscular Hemoglobin 36.5 PG (27.0-31.0) H 34.4 PG (27.0-31.0) H Mean Corpuscular Hemoglobin Concent 33.1 G/DL (32.0-36.0) 31.7 G/DL (32.0-36.0) L Red Cell Distribution Width 16.7 % (11.6-14.8) H 17.0 % (11.6-14.8) H Platelet Count 146 K/UL (150-450) L 119 K/UL (150-450) L Mean Platelet Volume 8.1 FL (6.5-10.1) 7.0 FL (6.5-10.1) Neutrophils (%) (Auto) % (45.0-75.0) % (45.0-75.0) Lymphocytes (%) (Auto) % (20.0-45.0) % (20.0-45.0) Monocytes (%) (Auto) % (1.0-10.0) % (1.0-10.0) Eosinophils (%) (Auto) % (0.0-3.0) % (0.0-3.0) Basophils (%) (Auto) % (0.0-2.0) % (0.0-2.0) Differential Total Cells Counted 100 100 Neutrophils % (Manual) 83 % (45-75) H 91 % (45-75) H Lymphocytes % (Manual) 8 % (20-45) L 3 % (20-45) L Monocytes % (Manual) 9 % (1-10) 1 % (1-10) Eosinophils % (Manual) 0 % (0-3) 0 % (0-3) Basophils % (Manual) 0 % (0-2) 0 % (0-2) Band Neutrophils 0 % (0-8) 5 % (0-8) Platelet Estimate Adequate Decreased L Platelet Morphology Normal Normal Polychromasia 1+ 1+ Hypochromasia 1+ 1+ Anisocytosis 1+ 2+ Macrocytosis 1+ 2+ Sodium Level 142 mEQ/L (135-145) Potassium Level 3.7 mEQ/L (3.4-4.9) Chloride Level 96 mEQ/L (98-107) L Carbon Dioxide Level 27 mEQ/L (20-30) Anion Gap 19 (5-15) H Blood Urea Nitrogen 47 mg/dL (7-23) H Creatinine 8.5 mg/dL (0.7-1.2) H Estimat Glomerular Filtration Rate mL/min (>60) Glucose Level 191 mg/dL (74-106) H Calcium Level 9.0 mg/dL (8.6-10.2) Phosphorus Level 9.7 mg/dL (2.5-4.8) H Magnesium Level 2.3 mg/dL (1.7-2.5) Total Bilirubin 0.3 mg/dL (0.0-1.2) Aspartate Amino Transf (AST/SGOT) 28 U/L (5-40) Alanine Aminotransferase (ALT/SGPT) 15 U/L (3-41) Alkaline Phosphatase 163 U/L (40-129) H Total Protein 6.8 g/dL (6.6-8.7) Albumin 3.4 g/dL (3.5-5.2) L Globulin 3.4 g/dL Albumin/Globulin Ratio 1.0 (1.0-2.7) Arterial Blood pH 7.304 (7.350-7.450) Arterial Blood Partial Pressure CO2 53.2 mmHg (35.0-45.0) H Arterial Blood Partial Pressure O2 79.9 mmHg (75.0-100.0) Arterial Blood HCO3 25.8 mmol/L (22.0-26.0) Arterial Blood Oxygen Saturation 93.5 % (92.0-98.0) Arterial Blood Base Excess -1.0 Mike Test Positive Body Fluid Source Peritoneal Body Fluid Volume 70 mL Body Fluid Appearance Clear Body Fluid RBC 313 /CUMM Body Fluid Total Nucleated Cells 119 /CUMM Body Fluid Polynuclear WBCs (%) 33 % Body Fluid Mononuclear WBCs (%) 58 % Body Fluid Mesothelial Cells (%) 9 % Test 04/19/17 17:00 Lactic Acid Level 1.20 mmol/L (0.66-2.22) Random Amikacin Level 7.2 ug/mL Random Vancomycin Level 15.1 ug/mL ACE REID Apr 19, 2017 19:00
[2017-04-19] MEDS: Dyna-Hex 2% Top Sol 8oz TOPIC SCH (20:58)
[2017-04-19] MEDS: LORazepam Inj 2mg/ml 1ml IV PRN (20:59)
[2017-04-19] MEDS: Morphine Sulfate 4mg/ml Inj IVP PRN (23:10)
[2017-04-20] VITALS (11 sets, daily range): BP systolic 91–143; BP diastolic 45–67
[2017-04-20 05:18] LABS: METHYLMALONIC ACID 591 nmol/L (0-378)
[2017-04-20] MEDS: NovoLOG Insulin Flexpen SUBQ SCH ×3 (05:37→17:41)
[2017-04-20 05:46] LABS: MEAN CORPUSCULAR HEMOGLOBIN 37.2 PG (27.0-31.0); MEAN CORPUSCULAR HGB CONC 34.4 G/DL (32.0-36.0); MEAN CORPUSCULAR VOLUME 108 FL (80-99); MEAN PLATELET VOLUME 7.1 FL (6.5-10.1); PLATELET COUNT 100 K/UL (150-450); RED BLOOD COUNT 2.37 M/UL (4.70-6.10); RED CELL DISTRIBUTION WIDTH 17.4 % (11.6-14.8); WHITE BLOOD COUNT 21.5 K/UL (4.8-10.8)
[2017-04-20] MEDS: Pyridostigmine 60mg tab ORAL SCH ×3 (05:56→21:30)
[2017-04-20 06:12] LABS: ALANINE AMINOTRANSFERASE 12 U/L (3-41); ALBUMIN/GLOBULIN RATIO 0.8 (1.0-2.7); ANION GAP 16 (5-15); ASPARTATE AMINO TRANSFERASE 22 U/L (5-40); CALCIUM 8.8 mg/dL (8.6-10.2); CARBON DIOXIDE 29 mEQ/L (20-30); CHLORIDE 96 mEQ/L (98-107); CREATININE 6.4 mg/dL (0.7-1.2); HEMOLYSIS 3; MAGNESIUM 1.9 mg/dL (1.7-2.5); PHOSPHORUS 4.2 mg/dL (2.5-4.8); POTASSIUM 3.7 mEQ/L (3.4-4.9); SODIUM 141 mEQ/L (135-145)
[2017-04-20] MEDS ORDERED: DuoNeb 0.5-3(2.5)mg/3ml neb HHN PRN (06:52)
[2017-04-20] MEDS ORDERED: Morphine Sulfate 4mg/ml Inj IVP PRN (06:53)
[2017-04-20] MEDS: PARoxetine 10mg tab ORAL SCH (08:33)
[2017-04-20] MEDS: Allopurinol 100mg Tab ORAL SCH (08:34)
[2017-04-20] MEDS ORDERED: Amikacin Rx to dose MISC PRN (09:00)
[2017-04-20] MEDS ORDERED: Aztreonam Inj 0.5 GM in D5W 55 ML IVPB SCH (09:00)
--- NOTE | 2017-04-20 09:11 | Diagnostic Imaging Report ---
Indication: Dyspnea Comparison: 04/19/2017 A single view chest radiograph was obtained. Findings: Mild basilar atelectasis versus scarring demonstrated. Heart size is normal. Lung volumes are low. There is no pulmonary edema. Right permacath noted. Pacemaker again noted. Impression: Basilar atelectasis versus scarring. No change.
[2017-04-20 09:13] LABS: ANISOCYTOSIS 1+; BAND NEUTROPHILS % (MANUAL) 5 % (0-8); BASOPHILS % (MANUAL) 0 % (0-2); EOSINOPHILS % (MANUAL) 1 % (0-3); HYPOCHROMASIA 1+; LYMPHOCYTES % (MANUAL) 7 % (20-45); MACROCYTES 1+; NEUTROPHILS % (MANUAL) 78 % (45-75); PLATELET ESTIMATE DECREASED; TOTAL CELLS COUNTED 100
[2017-04-20 09:14] LABS: POLYCHROMASIA OCCASIONAL
[2017-04-20 09:17] LABS: PLATELET MORPHOLOGY NORMAL
[2017-04-20 09:20] LABS: ABG ALLEN TEST POSITIVE; ABG BASE EXCESS 0.5; ABG PCO2 64.2 mmHg (35.0-45.0)
[2017-04-20 10:15] LABS: COMMENT,BODY FLUID PATHOLOGIST COMMENT
--- NOTE | 2017-04-20 11:38 | Diagnostic Imaging Report ---
Indication: Abdominal pain Comparison: None Single view of the abdomen obtained Findings: Bowel gas pattern is nonspecific. No mass, ectopic calcifications, or abnormal gas collections are identified. A short right femoral line noted. Left total hip prosthetic demonstrated. Cholecystectomy clips noted. There is a pacemaker present. There is a catheter curled within the right lower quadrant of abdomen. This appears to be a peritoneal dialysis catheter. Impression: No acute findings
--- NOTE | 2017-04-20 13:27 | General Progress Note ---
Assessment/Plan Status: stable - from renal stand Assessment/Plan ESRD : On Hemo and Peritoneal dialysis Septic shock , Low BP stablizing PAF S/p I and D infra umbilcal superficial MSSA abscess. CHF, PHT. 90's hypokinesis Anemia. MDS? Plan: Hemodynamically stable HD done04/19 next 04/22 Optimize cardiac and Pulm status, weaning as possible monitor renal parameters per orders Subjective ROS Limited/Unobtainable: No Constitutional: Reports: malaise Allergies: Coded Allergies: GERTRUDIS INHIBITORS (Unverified Allergy, Unknown, 04/15/17) LEVOFLOXACIN (Unverified Allergy, Unknown, 04/15/17) PENICILLINS (Verified Allergy, Unknown, 04/15/17) Objective Last 24 Hour Vital Signs Date Time Temp Pulse Resp B/P (MAP) Pulse Ox O2 Delivery O2 Flow Rate FiO2 04/20/17 12:00 85 04/20/17 12:00 97.7 88 19 119/57 94 Room Air 04/20/17 10:18 76 21 97 Facial 40 04/20/17 08:45 83 04/20/17 08:00 97.2 86 19 135/67 98 Nasal Cannula 5.0 04/20/17 08:00 Nasal Cannula 5.0 04/20/17 08:00 98 Nasal Cannula 5.0 04/20/17 06:00 75 17 143/63 100 Bi-pap 40 04/20/17 05:10 81 23 100 Facial 40 04/20/17 05:00 76 17 122/55 100 Bi-pap 40 04/20/17 04:00 74 04/20/17 04:00 40 04/20/17 04:00 97.6 74 19 91/52 100 Bi-pap 40 04/20/17 03:06 84 20 98 Facial 40 04/20/17 03:00 76 19 140/64 100 Bi-pap 40 04/20/17 02:00 82 22 107/50 100 Bi-pap 40 04/20/17 01:07 80 19 95 Facial 40 04/20/17 01:00 81 22 123/60 99 Nasal Cannula 4.0 04/20/17 00:00 97.2 75 21 98/45 100 Bi-pap 40 04/20/17 00:00 75 04/20/17 00:00 40 04/19/17 23:40 97.2 04/19/17 23:10 82 20 100 Facial 40 04/19/17 23:00 76 22 109/50 99 Bi-pap 40 04/19/17 22:15 95/52 04/19/17 22:00 78 19 96/52 99 Nasal Cannula 4.0 04/19/17 21:12 72 19 100 Full Face 40 04/19/17 21:00 74 20 92/43 99 Nasal Cannula 4.0 04/19/17 20:00 40 04/19/17 20:00 97.5 85 19 146/54 99 Nasal Cannula 4.0 04/19/17 20:00 85 04/19/17 19:37 95 Nasal Cannula 5.0 40 04/19/17 19:37 Nasal Cannula 5.0 40 04/19/17 19:00 72 23 147/64 99 Nasal Cannula 4.0 04/19/17 18:00 85 28 156/65 95 Nasal Cannula 4.0 04/19/17 17:00 85 26 160/87 99 Nasal Cannula 4.0 04/19/17 16:00 77 04/19/17 16:00 4.0 04/19/17 16:00 98.3 87 26 159/63 99 Nasal Cannula 4.0 04/19/17 15:00 80 25 157/63 99 Nasal Cannula 4.0 04/19/17 14:00 82 25 167/73 98 Nasal Cannula 3.0 Laboratory Tests 04/19/17 14:30: White Blood Count 41.9*H, Red Blood Count 2.90L, Hemoglobin 10.0L, Hematocrit 31.4L, Mean Corpuscular Volume 108H, Mean Corpuscular Hemoglobin 34.4H, Mean Corpuscular Hemoglobin Concent 31.7L, Red Cell Distribution Width 17.0H, Platelet Count 119L, Mean Platelet Volume 7.0, Neutrophils (%) (Auto) , Lymphocytes (%) (Auto) , Monocytes (%) (Auto) , Eosinophils (%) (Auto) , Basophils (%) (Auto) , Differential Total Cells Counted 100, Neutrophils % ( Manual) 91H, Lymphocytes % (Manual) 3L, Monocytes % (Manual) 1, Eosinophils % ( Manual) 0, Basophils % (Manual) 0, Band Neutrophils 5, Platelet Estimate DecreasedL, Platelet Morphology Normal, Polychromasia 1+, Hypochromasia 1+, Anisocytosis 2+, Macrocytosis 2+ 04/19/17 17:00: Lactic Acid Level 1.20, Random Amikacin Level 7.2, Random Vancomycin Level 15.1 04/20/17 05:00: White Blood Count 21.5H, Red Blood Count 2.37L, Hemoglobin 8.8L, Hematocrit 25.7L, Mean Corpuscular Volume 108H, Mean Corpuscular Hemoglobin 37.2H, Mean Corpuscular Hemoglobin Concent 34.4, Red Cell Distribution Width 17.4H, Platelet Count 100L, Mean Platelet Volume 7.1, Neutrophils (%) (Auto) , Lymphocytes (%) (Auto) , Monocytes (%) (Auto) , Eosinophils (%) (Auto) , Basophils (%) (Auto) , Differential Total Cells Counted 100, Neutrophils % ( Manual) 78H, Lymphocytes % (Manual) 7L, Monocytes % (Manual) 9, Eosinophils % ( Manual) 1, Basophils % (Manual) 0, Band Neutrophils 5, Platelet Estimate DecreasedL, Platelet Morphology Normal, Polychromasia Occasional, Hypochromasia 1+, Anisocytosis 1+, Macrocytosis 1+, Basophilic Stippling Occasional, Sodium Level 141, Potassium Level 3.7, Chloride Level 96L, Carbon Dioxide Level 29, Anion Gap 16H, Blood Urea Nitrogen 48H, Creatinine 6.4H, Estimat Glomerular Filtration Rate , Glucose Level 73#L, Calcium Level 8.8, Phosphorus Level 4.2, Magnesium Level 1.9, Total Bilirubin 0.3, Aspartate Amino Transf (AST/SGOT) 22, Alanine Aminotransferase (ALT/SGPT) 12, Alkaline Phosphatase 179H, Total Protein 6.0L, Albumin 2.7L, Globulin 3.3, Albumin/Globulin Ratio 0.8L 04/20/17 09:15: Arterial Blood pH 7.260L, Arterial Blood Partial Pressure CO2 64.2*H, Arterial Blood Partial Pressure O2 190.6H, Arterial Blood HCO3 28.3H, Arterial Blood Oxygen Saturation 97.5, Arterial Blood Base Excess 0.5, Mike Test Positive Height (Feet): 5 Height (Inches): 8.00 Weight (Pounds): 175 General Appearance: mild distress EENT: other - on BIPAP Cardiovascular: normal rate Respiratory/Chest: decreased breath sounds LORENZA SANTOS Apr 20, 2017 13:27
--- NOTE | 2017-04-20 14:53 | Cardiology Progress Note ---
Assessment/Plan Problem List: (1) Severe sepsis (2) ESRD (end stage renal disease) on dialysis (3) H/O pulmonary hypertension (4) Myasthenia gravis (5) Acute respiratory failure (6) Septic shock (7) Hypoxia Status: stable, progressing Status Narrative Mr Wilcox was transferred out of ICU today. Sepsis improving - on iv antibiotics for MSSA abscess He is now in AF, intermittently v pacing Assessment/Plan Complete iv antibiotics course. Severe pulmonary hypertension AF - controlled v rates. ? anticoagulation. Will hold for now, as pt anemic and w/ hx of gi bleed earlier this year. Subjective ROS Limited/Unobtainable: No Subjective Cardiology for Dr. Bright Events noted. Pt transferred out of ICU today. Appears weak, lethargic. No dyspnea on nc o2 Objective Last 24 Hour Vital Signs Date Time Temp Pulse Resp B/P (MAP) Pulse Ox O2 Delivery O2 Flow Rate FiO2 04/20/17 12:00 85 04/20/17 12:00 97.7 88 19 119/57 94 Room Air 04/20/17 10:18 76 21 97 Facial 40 04/20/17 08:45 83 04/20/17 08:00 97.2 86 19 135/67 98 Nasal Cannula 5.0 04/20/17 08:00 Nasal Cannula 5.0 04/20/17 08:00 98 Nasal Cannula 5.0 04/20/17 06:00 75 17 143/63 100 Bi-pap 40 04/20/17 05:10 81 23 100 Facial 40 04/20/17 05:00 76 17 122/55 100 Bi-pap 40 04/20/17 04:00 74 04/20/17 04:00 40 04/20/17 04:00 97.6 74 19 91/52 100 Bi-pap 40 04/20/17 03:06 84 20 98 Facial 40 04/20/17 03:00 76 19 140/64 100 Bi-pap 40 04/20/17 02:00 82 22 107/50 100 Bi-pap 40 04/20/17 01:07 80 19 95 Facial 40 04/20/17 01:00 81 22 123/60 99 Nasal Cannula 4.0 04/20/17 00:00 97.2 75 21 98/45 100 Bi-pap 40 04/20/17 00:00 75 04/20/17 00:00 40 04/19/17 23:40 97.2 04/19/17 23:10 82 20 100 Facial 40 04/19/17 23:00 76 22 109/50 99 Bi-pap 40 04/19/17 22:15 95/52 04/19/17 22:00 78 19 96/52 99 Nasal Cannula 4.0 04/19/17 21:12 72 19 100 Full Face 40 04/19/17 21:00 74 20 92/43 99 Nasal Cannula 4.0 04/19/17 20:00 40 04/19/17 20:00 97.5 85 19 146/54 99 Nasal Cannula 4.0 04/19/17 20:00 85 04/19/17 19:37 95 Nasal Cannula 5.0 40 04/19/17 19:37 Nasal Cannula 5.0 40 04/19/17 19:00 72 23 147/64 99 Nasal Cannula 4.0 04/19/17 18:00 85 28 156/65 95 Nasal Cannula 4.0 04/19/17 17:00 85 26 160/87 99 Nasal Cannula 4.0 04/19/17 16:00 77 04/19/17 16:00 4.0 04/19/17 16:00 98.3 87 26 159/63 99 Nasal Cannula 4.0 04/19/17 15:00 80 25 157/63 99 Nasal Cannula 4.0 General Appearance: WD/WN, no apparent distress, lethargic EENT: PERRL/EOMI Neck: non-tender, no JVD Rhythm: Afib Cardiovascular: normal rate, no gallop/murmur, irregularly irregular Respiratory/Chest: other - decreased BS bilaterally. no rales Abdomen: non tender, soft, other - PD catheter in place. Extremities: no swelling Laboratory Tests Test 04/19/17 17:00 04/20/17 05:00 04/20/17 09:15 Lactic Acid Level 1.20 mmol/L (0.66-2.22) Random Amikacin Level 7.2 ug/mL Random Vancomycin Level 15.1 ug/mL White Blood Count 21.5 K/UL (4.8-10.8) H Red Blood Count 2.37 M/UL (4.70-6.10) L Hemoglobin 8.8 G/DL (14.2-18.0) L Hematocrit 25.7 % (42.0-52.0) L Mean Corpuscular Volume 108 FL (80-99) H Mean Corpuscular Hemoglobin 37.2 PG (27.0-31.0) H Mean Corpuscular Hemoglobin Concent 34.4 G/DL (32.0-36.0) Red Cell Distribution Width 17.4 % (11.6-14.8) H Platelet Count 100 K/UL (150-450) L Mean Platelet Volume 7.1 FL (6.5-10.1) Neutrophils (%) (Auto) % (45.0-75.0) Lymphocytes (%) (Auto) % (20.0-45.0) Monocytes (%) (Auto) % (1.0-10.0) Eosinophils (%) (Auto) % (0.0-3.0) Basophils (%) (Auto) % (0.0-2.0) Differential Total Cells Counted 100 Neutrophils % (Manual) 78 % (45-75) H Lymphocytes % (Manual) 7 % (20-45) L Monocytes % (Manual) 9 % (1-10) Eosinophils % (Manual) 1 % (0-3) Basophils % (Manual) 0 % (0-2) Band Neutrophils 5 % (0-8) Platelet Estimate Decreased L Platelet Morphology Normal Polychromasia Occasional Hypochromasia 1+ Basophilic Stippling Occasional Anisocytosis 1+ Macrocytosis 1+ Sodium Level 141 mEQ/L (135-145) Potassium Level 3.7 mEQ/L (3.4-4.9) Chloride Level 96 mEQ/L (98-107) L Carbon Dioxide Level 29 mEQ/L (20-30) Anion Gap 16 (5-15) H Blood Urea Nitrogen 48 mg/dL (7-23) H Creatinine 6.4 mg/dL (0.7-1.2) H Estimat Glomerular Filtration Rate mL/min (>60) Glucose Level 73 mg/dL (74-106) #L Calcium Level 8.8 mg/dL (8.6-10.2) Phosphorus Level 4.2 mg/dL (2.5-4.8) Magnesium Level 1.9 mg/dL (1.7-2.5) Total Bilirubin 0.3 mg/dL (0.0-1.2) Aspartate Amino Transf (AST/SGOT) 22 U/L (5-40) Alanine Aminotransferase (ALT/SGPT) 12 U/L (3-41) Alkaline Phosphatase 179 U/L (40-129) H Total Protein 6.0 g/dL (6.6-8.7) L Albumin 2.7 g/dL (3.5-5.2) L Globulin 3.3 g/dL Albumin/Globulin Ratio 0.8 (1.0-2.7) L Arterial Blood pH 7.260 (7.350-7.450) Arterial Blood Partial Pressure CO2 64.2 mmHg (35.0-45.0) *H Arterial Blood Partial Pressure O2 190.6 mmHg (75.0-100.0) H Arterial Blood HCO3 28.3 mmol/L (22.0-26.0) H Arterial Blood Oxygen Saturation 97.5 % (92.0-98.0) Arterial Blood Base Excess 0.5 Mike Test Positive Microbiology Date/Time Source Procedure Growth Status 04/19/17 10:10 Ascities Fluid Gram Stain - Final Resulted 04/19/17 10:10 Ascities Fluid Body Fluid Culture - Preliminary NO GROWTH AFTER 24 HOURS Resulted JAYME CHAVEZ Apr 20, 2017 14:52
--- NOTE | 2017-04-20 15:10 | Infectious Diseases Prog Note ---
Assessment/Plan Assessment/Plan IMPRESSION: 1) Severe sepsis and septic shock with hypotension and leukocytosis. infectious source not identified, but I suspect he has a partially treated PD cath associated peritonitis on the basis of dwelling fluid cell count >100 after 72 hrs abx. h/o abdominal MSSA skin/soft tissue abscess, no evidence of recurrence. hypotension has resolved, tolerating HD. 2) Other acute respiratory failure with markedly elevated pro BNP of 21k on admission. recurrent CO2 retention with intermittent acute resp acidosis. 3) ruled out for line-associated bacteremia 4) probable PD cath associated peritonitis on D#5 of abx. continue therapy. s/p abd u/s peritoneal fluid today does have >100 WBC, but PMNs <50%, so this could be either partially treated PD peritonitis or negative. gram stain from 04/19 neg and culture pending. 4) leukocytosis, profound leukamoid reaction 04/19, downtrending 5) afebrile 6) chronic anemia 7) ESRD, s/p net 1L neg 04/19 8) severe pulmonary HTN--seen on [id number] TTE 9) lactic acidosis, improving 10) obstipation x5 days, associated with poor PO intake s/p KUB 04/19 negative for ileus 11) possible MDS, which may be contributing to his leukocytosis. 12) L sacral wound 13) Pseudomonas colonizing resp tract RECOMMENDATION: --Continue IV vancomycin and amikacin D#5 renally dosed for presumed PD cath associated peritonitis --D/c aztreonam, currently D#5 --sputum cx growing pseudomonas that I think is a colonizer here based on absence of infiltrate on cxr. --f/u PD fluid culture --follow CBC --if profound leukocytosis persists or recurs, given his fairly recent hx (1-2 months ago) of abdominal MSSA skin/soft tissue abscess s/p treatment and I&D, a small L sacral punctum noted on admission, and imaging suggestive of cirrhosis, will need CT a/p with contrast (timed with f/u HD) to r/o occult intraabominal or sacral abscess. hold off for now with WBC down significantly from yesterday. Subjective ROS Limited/Unobtainable: Yes Allergies: Coded Allergies: GERTRUDIS INHIBITORS (Unverified Allergy, Unknown, 04/15/17) LEVOFLOXACIN (Unverified Allergy, Unknown, 04/15/17) PENICILLINS (Verified Allergy, Unknown, 04/15/17) Subjective afebrile o/n. CO2 retention noted on ABG with an acute resp acidosis, for which he was managed with CPAP today. afib, intermittent tachycardia. Objective Vital Signs Last 24 Hour Vital Signs Date Time Temp Pulse Resp B/P (MAP) Pulse Ox O2 Delivery O2 Flow Rate FiO2 04/20/17 12:00 85 04/20/17 12:00 97.7 88 19 119/57 94 Room Air 04/20/17 10:18 76 21 97 Facial 40 04/20/17 08:45 83 04/20/17 08:00 97.2 86 19 135/67 98 Nasal Cannula 5.0 04/20/17 08:00 Nasal Cannula 5.0 04/20/17 08:00 98 Nasal Cannula 5.0 04/20/17 06:00 75 17 143/63 100 Bi-pap 40 04/20/17 05:10 81 23 100 Facial 40 04/20/17 05:00 76 17 122/55 100 Bi-pap 40 04/20/17 04:00 74 04/20/17 04:00 40 04/20/17 04:00 97.6 74 19 91/52 100 Bi-pap 40 04/20/17 03:06 84 20 98 Facial 40 04/20/17 03:00 76 19 140/64 100 Bi-pap 40 04/20/17 02:00 82 22 107/50 100 Bi-pap 40 04/20/17 01:07 80 19 95 Facial 40 04/20/17 01:00 81 22 123/60 99 Nasal Cannula 4.0 04/20/17 00:00 97.2 75 21 98/45 100 Bi-pap 40 04/20/17 00:00 75 04/20/17 00:00 40 04/19/17 23:40 97.2 04/19/17 23:10 82 20 100 Facial 40 04/19/17 23:00 76 22 109/50 99 Bi-pap 40 04/19/17 22:15 95/52 04/19/17 22:00 78 19 96/52 99 Nasal Cannula 4.0 04/19/17 21:12 72 19 100 Full Face 40 04/19/17 21:00 74 20 92/43 99 Nasal Cannula 4.0 04/19/17 20:00 40 04/19/17 20:00 97.5 85 19 146/54 99 Nasal Cannula 4.0 04/19/17 20:00 85 04/19/17 19:37 95 Nasal Cannula 5.0 40 04/19/17 19:37 Nasal Cannula 5.0 40 04/19/17 19:00 72 23 147/64 99 Nasal Cannula 4.0 04/19/17 18:00 85 28 156/65 95 Nasal Cannula 4.0 04/19/17 17:00 85 26 160/87 99 Nasal Cannula 4.0 04/19/17 16:00 77 04/19/17 16:00 4.0 04/19/17 16:00 98.3 87 26 159/63 99 Nasal Cannula 4.0 Height (Feet): 5 Height (Inches): 8.00 Weight (Pounds): 175 Objective GENERAL: The patient is awake, alert, and communicated with nodding. Denies abdominal pain. HEAD AND NECK: extubated HEART: Normal rate. 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 PermCath in the right side of the chest. no erythema, no fluctuance, no edema, no pain to palpation LUNGS: scattered rhonchi. ABDOMEN: Soft. nttp. There is a peritoneal dialysis catheter that is healthy appearing. low midline surgical scar that is well healed. no palpable mass or fluctuance or erythema. EXTREMITIES: No edema. He has a right femoral line. : no rash, no lawler in place. sacrum: reviewed wound photos from admission Microbiology Date/Time Source Procedure Growth Status 04/19/17 10:10 Ascities Fluid Gram Stain - Final Resulted 04/19/17 10:10 Ascities Fluid Body Fluid Culture - Preliminary NO GROWTH AFTER 24 HOURS Resulted Laboratory Tests Test 04/19/17 17:00 04/20/17 05:00 04/20/17 09:15 Lactic Acid Level 1.20 mmol/L (0.66-2.22) Random Amikacin Level 7.2 ug/mL Random Vancomycin Level 15.1 ug/mL White Blood Count 21.5 K/UL (4.8-10.8) H Red Blood Count 2.37 M/UL (4.70-6.10) L Hemoglobin 8.8 G/DL (14.2-18.0) L Hematocrit 25.7 % (42.0-52.0) L Mean Corpuscular Volume 108 FL (80-99) H Mean Corpuscular Hemoglobin 37.2 PG (27.0-31.0) H Mean Corpuscular Hemoglobin Concent 34.4 G/DL (32.0-36.0) Red Cell Distribution Width 17.4 % (11.6-14.8) H Platelet Count 100 K/UL (150-450) L Mean Platelet Volume 7.1 FL (6.5-10.1) Neutrophils (%) (Auto) % (45.0-75.0) Lymphocytes (%) (Auto) % (20.0-45.0) Monocytes (%) (Auto) % (1.0-10.0) Eosinophils (%) (Auto) % (0.0-3.0) Basophils (%) (Auto) % (0.0-2.0) Differential Total Cells Counted 100 Neutrophils % (Manual) 78 % (45-75) H Lymphocytes % (Manual) 7 % (20-45) L Monocytes % (Manual) 9 % (1-10) Eosinophils % (Manual) 1 % (0-3) Basophils % (Manual) 0 % (0-2) Band Neutrophils 5 % (0-8) Platelet Estimate Decreased L Platelet Morphology Normal Polychromasia Occasional Hypochromasia 1+ Basophilic Stippling Occasional Anisocytosis 1+ Macrocytosis 1+ Sodium Level 141 mEQ/L (135-145) Potassium Level 3.7 mEQ/L (3.4-4.9) Chloride Level 96 mEQ/L (98-107) L Carbon Dioxide Level 29 mEQ/L (20-30) Anion Gap 16 (5-15) H Blood Urea Nitrogen 48 mg/dL (7-23) H Creatinine 6.4 mg/dL (0.7-1.2) H Estimat Glomerular Filtration Rate mL/min (>60) Glucose Level 73 mg/dL (74-106) #L Calcium Level 8.8 mg/dL (8.6-10.2) Phosphorus Level 4.2 mg/dL (2.5-4.8) Magnesium Level 1.9 mg/dL (1.7-2.5) Total Bilirubin 0.3 mg/dL (0.0-1.2) Aspartate Amino Transf (AST/SGOT) 22 U/L (5-40) Alanine Aminotransferase (ALT/SGPT) 12 U/L (3-41) Alkaline Phosphatase 179 U/L (40-129) H Total Protein 6.0 g/dL (6.6-8.7) L Albumin 2.7 g/dL (3.5-5.2) L Globulin 3.3 g/dL Albumin/Globulin Ratio 0.8 (1.0-2.7) L Arterial Blood pH 7.260 (7.350-7.450) Arterial Blood Partial Pressure CO2 64.2 mmHg (35.0-45.0) *H Arterial Blood Partial Pressure O2 190.6 mmHg (75.0-100.0) H Arterial Blood HCO3 28.3 mmol/L (22.0-26.0) H Arterial Blood Oxygen Saturation 97.5 % (92.0-98.0) Arterial Blood Base Excess 0.5 Mike Test Positive Current Medications Medications (Trade) Dose Ordered Sig/Rossana Route PRN Reason Start Time Stop Time Status Last Admin Dose Admin Acetaminophen (Tylenol) 650 mg Q4H PRN ORAL fever 04/20/17 06:15 05/15/17 22:14 Albuterol/ Ipratropium (DuoNeb 0.5-3(2.5)mg/3ml) 3 ml Q4H PRN HHN Shortness of Breath 04/20/17 06:52 04/25/17 06:51 Allopurinol (Zyloprim) 100 mg DAILY ORAL 04/20/17 09:00 05/16/17 08:59 04/20/17 08:34 Amikacin Protocol (Amikacin pharmacy to dose) 1 ea DAILY PRN MISC PHARM 04/20/17 09:00 05/16/17 05:59 Atorvastatin Calcium (Lipitor) 10 mg BEDTIME ORAL 04/20/17 21:00 05/16/17 20:59 Aztreonam 0.5 gm/ Dextrose 55 ml @ 110 mls/hr Q12HR IVPB 04/20/17 09:00 04/23/17 21:59 04/20/17 09:34 Chlorhexidine Gluconate (Lise-Hex 2%) 1 applic BEDTIME TOPIC 04/20/17 21:00 05/16/17 20:59 Dextrose (Dextrose 50%) STAT PRN IV Hypoglycemia 04/20/17 07:45 05/16/17 07:34 Insulin Aspart (NovoLOG) EVERY 6 HOURS SUBQ 04/20/17 12:00 05/16/17 11:59 04/20/17 13:57 Levothyroxine Sodium (Synthroid) 50 mcg DAILY@0630 ORAL 04/21/17 06:30 05/21/17 06:29 Lorazepam (Ativan 2mg/ml 1ml) 2 mg Q2H PRN IV For Anxiety 04/20/17 06:15 04/24/17 10:14 Morphine Sulfate (Morphine Sulfate) 4 mg Q4H PRN IVP Severe Pain (Pain Scale 7-10) 04/20/17 06:53 04/27/17 06:52 Ondansetron HCl (Zofran) 4 mg Q6H PRN IVP Nausea & Vomiting 04/20/17 06:53 05/15/17 06:52 Pantoprazole (Protonix) 40 mg EVERY 12 HOURS ORAL 04/20/17 09:00 05/18/17 20:59 04/20/17 08:34 Paroxetine HCl (Paxil) 10 mg DAILY ORAL 04/20/17 09:00 05/16/17 10:59 04/20/17 08:33 Polyethylene Glycol (Miralax) 17 gm DAILYPRN PRN ORAL Constipation 04/20/17 22:15 05/15/17 22:14 Pyridostigmine [place] (Mestinon) 60 mg Q8HR ORAL 04/20/17 14:00 05/16/17 13:59 04/20/17 13:58 Vancomycin HCl (Vanco rx to dose) 1 ea DAILY PRN MISC RX DOSING 04/20/17 09:00 05/16/17 08:59 Tai Moraes M.D. Apr 20, 2017 15:10
--- NOTE | 2017-04-20 16:06 | Neurology Progress Note ---
Interim History Interim History Interim History Mr. Wilcox is more encephalopathic. His mental status is waxing and waning while he is eric evaluated. He is generally weaker. He denies any new neurologic symptoms. He is not short of breath. His voice is less hoarse. He feels that his Myasthenia Gravis is controlled. He has been going in and out of atrial fibrillation. Review of Systems Neuro Review of Systems Benign. Objective Physical Exam Last Vital Signs Date Time Temp Pulse Resp B/P (MAP) Pulse Ox O2 Delivery O2 Flow Rate FiO2 04/20/17 12:00 85 04/20/17 12:00 97.7 19 119/57 94 Room Air 04/20/17 10:18 40 04/20/17 08:00 5.0 Laboratory Tests Test 04/19/17 17:00 04/20/17 05:00 04/20/17 09:15 Lactic Acid Level 1.20 mmol/L (0.66-2.22) Random Amikacin Level 7.2 ug/mL Random Vancomycin Level 15.1 ug/mL White Blood Count 21.5 K/UL (4.8-10.8) H Red Blood Count 2.37 M/UL (4.70-6.10) L Hemoglobin 8.8 G/DL (14.2-18.0) L Hematocrit 25.7 % (42.0-52.0) L Mean Corpuscular Volume 108 FL (80-99) H Mean Corpuscular Hemoglobin 37.2 PG (27.0-31.0) H Mean Corpuscular Hemoglobin Concent 34.4 G/DL (32.0-36.0) Red Cell Distribution Width 17.4 % (11.6-14.8) H Platelet Count 100 K/UL (150-450) L Mean Platelet Volume 7.1 FL (6.5-10.1) Neutrophils (%) (Auto) % (45.0-75.0) Lymphocytes (%) (Auto) % (20.0-45.0) Monocytes (%) (Auto) % (1.0-10.0) Eosinophils (%) (Auto) % (0.0-3.0) Basophils (%) (Auto) % (0.0-2.0) Differential Total Cells Counted 100 Neutrophils % (Manual) 78 % (45-75) H Lymphocytes % (Manual) 7 % (20-45) L Monocytes % (Manual) 9 % (1-10) Eosinophils % (Manual) 1 % (0-3) Basophils % (Manual) 0 % (0-2) Band Neutrophils 5 % (0-8) Platelet Estimate Decreased L Platelet Morphology Normal Polychromasia Occasional Hypochromasia 1+ Basophilic Stippling Occasional Anisocytosis 1+ Macrocytosis 1+ Sodium Level 141 mEQ/L (135-145) Potassium Level 3.7 mEQ/L (3.4-4.9) Chloride Level 96 mEQ/L (98-107) L Carbon Dioxide Level 29 mEQ/L (20-30) Anion Gap 16 (5-15) H Blood Urea Nitrogen 48 mg/dL (7-23) H Creatinine 6.4 mg/dL (0.7-1.2) H Estimat Glomerular Filtration Rate mL/min (>60) Glucose Level 73 mg/dL (74-106) #L Calcium Level 8.8 mg/dL (8.6-10.2) Phosphorus Level 4.2 mg/dL (2.5-4.8) Magnesium Level 1.9 mg/dL (1.7-2.5) Total Bilirubin 0.3 mg/dL (0.0-1.2) Aspartate Amino Transf (AST/SGOT) 22 U/L (5-40) Alanine Aminotransferase (ALT/SGPT) 12 U/L (3-41) Alkaline Phosphatase 179 U/L (40-129) H Total Protein 6.0 g/dL (6.6-8.7) L Albumin 2.7 g/dL (3.5-5.2) L Globulin 3.3 g/dL Albumin/Globulin Ratio 0.8 (1.0-2.7) L Arterial Blood pH 7.260 (7.350-7.450) Arterial Blood Partial Pressure CO2 64.2 mmHg (35.0-45.0) *H Arterial Blood Partial Pressure O2 190.6 mmHg (75.0-100.0) H Arterial Blood HCO3 28.3 mmol/L (22.0-26.0) H Arterial Blood Oxygen Saturation 97.5 % (92.0-98.0) Arterial Blood Base Excess 0.5 Mike Test Positive Neurologic Exam Objective PHYSICAL EXAMINATION: GENERAL: A well-developed, well-nourished gentleman, in no acute distress. HEENT: Benign. NECK: Supple. No meningeal signs. NEUROLOGIC EXAMINATION: MENTAL STATUS EXAMINATION: He was awake but not alert. His level of arousal cycled rapidly between awakefulness and drowsiness. He was oriented to self only He was unable to cooperate for further mental status tests. SPEECH: He was less hoarse. LANGUAGE: He had a mixed moderate aphasia. CRANIAL NERVE EXAMINATION: II through XII intact. MOTOR EXAMINATION: Normal muscle tone. Mild generalized wasting. G 5/5 power in all muscle groups except for G 4+/5 in the iliopsoas, with no fatigability. SENSORY EXAMINATION: Normal to light touch and graphesthesia. REFLEXES: 2+ and bilaterally symmetric at the biceps,triceps, brachioradialis, and knees. 0 at both ankles. Plantar responses were flexor bilaterally. COORDINATION, STANCE & GAIT: Could not be tested. Impression/Recommendations Diagnostic Impression 1. Mr. 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 2. He is significantly more encephalopathic and not as bright as he was yesterday. 3. On neurologic examination at this time he does have worsening of his cognitive dysfunction, a mild paraparesis, hoarseness of voice, but no muscle fatigability. 4. Laboratory data reveal that he is retaining CO2, his WBC count is still elevated but on a decline and his other electrolytes are also abnormal. 5. His multifactorial encephalopathy is worse today. 6. His MG is controlled. Recommendations 1. Continue Mestinon 60 mg tid. 2. Increase activity as tolerated. 3. Continue treatment of other intercurrent medical problems. Abel Cornejo M.D., M.S.P.H. Neurologist & Clinical Neurophysiologist ABEL CORNEJO Apr 20, 2017 16:06
[2017-04-20] MEDS ORDERED: Amikacin 600 MG in NS 110 ML IV ONE (17:00)
--- NOTE | 2017-04-20 18:10 | Pulmonology Progress Note ---
Assessment/Plan Assessment/Plan ASSESSMENT Acute hypoxemic respiratory failure requiring intubation s/p extubation Severe sepsis Septic shock 2 to sepsis-resolved Probable PD catheter associated peritonitis encephalopathy ESRD Severe pulmonary HTN CHF Lactic acidosis Myasthenia gravis, likely progressing Single episode of seizure PAF Pacemaker Hx of I&D umbilical superficial MSSA abscess Anemia of chronic disease Thrombocytopenia Elevated tumor markers: CEA-10.9; PSA -7.0 functional quadriplegia PLAN OF CARE ISMAEL care Off Levophed Hemodynamically stable s/p extubation O2 to keep sat above 92% Pulmonary toilet Fup with CXR on Saturday ABG today worse: acidosis and hypercapnia, placed on BiPAP, noncompliant Abx ID follows Sputum cx +Pseudomonas ( no radiographic evidence of PNA, likely contaminant as per ID) Blood cx negative peritoneal fluid cx preliminary negative, cytology negative for malignancy Cardio follows ECHO with EF 70% and RVSP of 73 c/w severe pulmonary HTN Follow as outpatient with doctor for management of pulmonary HTN HD as per nephro ( at home gets PD dialysis and HD only weekly) Monitor renal parameters, lytes Neuro follows EEG abnormal, c/w mild encephalopathy - as read by neuro Ativan prn Seizure precautions Per neuro likely progressing myasthenia gravis Continue Mestinon Anemia w/up c/w anemia of chronic disease, monitor HH and transfuse prn for Hgb below 8 will keep in ISMAEL, respiratory status worse, need close observation DNR/DNI status case discussed and evaluated by supervising physician Subjective Allergies: Coded Allergies: GERTRUDIS INHIBITORS (Unverified Allergy, Unknown, 04/15/17) LEVOFLOXACIN (Unverified Allergy, Unknown, 04/15/17) PENICILLINS (Verified Allergy, Unknown, 04/15/17) Subjective afebrile, leukocytosis trending down-21.5 ABG with evidence of acidosis and hypercapnia, worsening at bedside Objective Last 24 Hour Vital Signs Date Time Temp Pulse Resp B/P (MAP) Pulse Ox O2 Delivery O2 Flow Rate FiO2 04/20/17 17:10 80 21 97 Facial 40 04/20/17 16:00 82 04/20/17 16:00 97.9 82 18 134/63 100 Nasal Cannula 4.0 04/20/17 12:00 85 04/20/17 12:00 97.7 88 19 119/57 94 Room Air 04/20/17 10:18 76 21 97 Facial 40 04/20/17 08:45 83 04/20/17 08:00 97.2 86 19 135/67 98 Nasal Cannula 5.0 04/20/17 08:00 Nasal Cannula 5.0 04/20/17 08:00 98 Nasal Cannula 5.0 04/20/17 06:00 75 17 143/63 100 Bi-pap 40 04/20/17 05:10 81 23 100 Facial 40 04/20/17 05:00 76 17 122/55 100 Bi-pap 40 04/20/17 04:00 74 04/20/17 04:00 40 04/20/17 04:00 97.6 74 19 91/52 100 Bi-pap 40 04/20/17 03:06 84 20 98 Facial 40 04/20/17 03:00 76 19 140/64 100 Bi-pap 40 04/20/17 02:00 82 22 107/50 100 Bi-pap 40 04/20/17 01:07 80 19 95 Facial 40 04/20/17 01:00 81 22 123/60 99 Nasal Cannula 4.0 04/20/17 00:00 97.2 75 21 98/45 100 Bi-pap 40 04/20/17 00:00 75 04/20/17 00:00 40 04/19/17 23:40 97.2 04/19/17 23:10 82 20 100 Facial 40 04/19/17 23:00 76 22 109/50 99 Bi-pap 40 04/19/17 22:15 95/52 04/19/17 22:00 78 19 96/52 99 Nasal Cannula 4.0 04/19/17 21:12 72 19 100 Full Face 40 04/19/17 21:00 74 20 92/43 99 Nasal Cannula 4.0 04/19/17 20:00 40 04/19/17 20:00 97.5 85 19 146/54 99 Nasal Cannula 4.0 04/19/17 20:00 85 04/19/17 19:37 95 Nasal Cannula 5.0 40 04/19/17 19:37 Nasal Cannula 5.0 40 04/19/17 19:00 72 23 147/64 99 Nasal Cannula 4.0 04/19/17 18:00 85 28 156/65 95 Nasal Cannula 4.0 General Appearance: other - bedridden, chronically ill looking, awake, responsive slurred speech male HEENT: normocephalic, atraumatic, anicteric, other - BiPAP mask Respiratory/Chest: no respiratory distress, decreased breath sounds, other - RIJ HD catheter Cardiovascular: normal rate, regular rhythm, other - R femoral CL intact Abdomen: soft, non tender, non distended, other - peritoneal dialysis catheter Neurologic/Psychiatric: abnormal gait - bedridden , alert, responsive Musculoskeletal: atrophy - BLE Microbiology Date/Time Source Procedure Growth Status 04/19/17 10:10 Ascities Fluid Gram Stain - Final Resulted 04/19/17 10:10 Ascities Fluid Body Fluid Culture - Preliminary NO GROWTH AFTER 24 HOURS Resulted Laboratory Tests 04/20/17 05:00: White Blood Count 21.5H, Red Blood Count 2.37L, Hemoglobin 8.8L, Hematocrit 25.7L, Mean Corpuscular Volume 108H, Mean Corpuscular Hemoglobin 37.2H, Mean Corpuscular Hemoglobin Concent 34.4, Red Cell Distribution Width 17.4H, Platelet Count 100L, Mean Platelet Volume 7.1, Neutrophils (%) (Auto) , Lymphocytes (%) (Auto) , Monocytes (%) (Auto) , Eosinophils (%) (Auto) , Basophils (%) (Auto) , Differential Total Cells Counted 100, Neutrophils % ( Manual) 78H, Lymphocytes % (Manual) 7L, Monocytes % (Manual) 9, Eosinophils % ( Manual) 1, Basophils % (Manual) 0, Band Neutrophils 5, Platelet Estimate DecreasedL, Platelet Morphology Normal, Polychromasia Occasional, Hypochromasia 1+, Basophilic Stippling Occasional, Anisocytosis 1+, Macrocytosis 1+, Sodium Level 141, Potassium Level 3.7, Chloride Level 96L, Carbon Dioxide Level 29, Anion Gap 16H, Blood Urea Nitrogen 48H, Creatinine 6.4H, Estimat Glomerular Filtration Rate , Glucose Level 73#L, Calcium Level 8.8, Phosphorus Level 4.2, Magnesium Level 1.9, Total Bilirubin 0.3, Aspartate Amino Transf (AST/SGOT) 22, Alanine Aminotransferase (ALT/SGPT) 12, Alkaline Phosphatase 179H, Total Protein 6.0L, Albumin 2.7L, Globulin 3.3, Albumin/Globulin Ratio 0.8L 04/20/17 09:15: Arterial Blood pH 7.260L, Arterial Blood Partial Pressure CO2 64.2*H, Arterial Blood Partial Pressure O2 190.6H, Arterial Blood HCO3 28.3H, Arterial Blood Oxygen Saturation 97.5, Arterial Blood Base Excess 0.5, Mike Test Positive Current Medications Medications (Trade) Dose Ordered Sig/Rossana Route PRN Reason Start Time Stop Time Status Last Admin Dose Admin Acetaminophen (Tylenol) 650 mg Q4H PRN ORAL fever 04/20/17 06:15 05/15/17 22:14 Albuterol/ Ipratropium (DuoNeb 0.5-3(2.5)mg/3ml) 3 ml Q4H PRN HHN Shortness of Breath 04/20/17 06:52 04/25/17 06:51 Allopurinol (Zyloprim) 100 mg DAILY ORAL 04/20/17 09:00 05/16/17 08:59 04/20/17 08:34 Amikacin Protocol (Amikacin pharmacy to dose) 1 ea DAILY PRN MISC PHARM 04/20/17 09:00 05/16/17 05:59 Amikacin Sulfate 600 mg/Sodium Chloride 112.4 ml @ 112.4 mls/ hr ONCE ONCE IV 04/20/17 17:00 04/20/17 17:59 04/20/17 17:38 Atorvastatin Calcium (Lipitor) 10 mg BEDTIME ORAL 04/20/17 21:00 05/16/17 20:59 Chlorhexidine Gluconate (Lise-Hex 2%) 1 applic BEDTIME TOPIC 04/20/17 21:00 05/16/17 20:59 Dextrose (Dextrose 50%) STAT PRN IV Hypoglycemia 04/20/17 07:45 05/16/17 07:34 Insulin Aspart (NovoLOG) EVERY 6 HOURS SUBQ 04/20/17 12:00 05/16/17 11:59 04/20/17 17:41 Levothyroxine Sodium (Synthroid) 50 mcg DAILY@0630 ORAL 04/21/17 06:30 05/21/17 06:29 Lorazepam (Ativan 2mg/ml 1ml) 2 mg Q2H PRN IV For Anxiety 04/20/17 06:15 04/24/17 10:14 Morphine Sulfate (Morphine Sulfate) 4 mg Q4H PRN IVP Severe Pain (Pain Scale 7-10) 04/20/17 06:53 04/27/17 06:52 Ondansetron HCl (Zofran) 4 mg Q6H PRN IVP Nausea & Vomiting 04/20/17 06:53 05/15/17 06:52 Pantoprazole (Protonix) 40 mg EVERY 12 HOURS ORAL 04/20/17 09:00 05/18/17 20:59 04/20/17 08:34 Paroxetine HCl (Paxil) 10 mg DAILY ORAL 04/20/17 09:00 05/16/17 10:59 04/20/17 08:33 Polyethylene Glycol (Miralax) 17 gm DAILYPRN PRN ORAL Constipation 04/20/17 22:15 05/15/17 22:14 Pyridostigmine [place] (Mestinon) 60 mg Q8HR ORAL 04/20/17 14:00 05/16/17 13:59 04/20/17 13:58 Vancomycin HCl (Vanco rx to dose) 1 ea DAILY PRN MISC RX DOSING 04/20/17 09:00 05/16/17 08:59 Vancomycin HCl 1 gm/Dextrose 275 ml @ 183.708 mls/hr ONCE ONCE IVPB 04/20/17 20:00 04/20/17 21:29 Chidi (Kristyn)Arianne NP Apr 20, 2017 18:10
[2017-04-20] MEDS ORDERED: Vancomycin 1gm/D5W 275ml IVPB ONE ×2 (20:00)
[2017-04-20] MEDS ORDERED: Dyna-Hex 2% Top Sol 8oz TOPIC SCH (21:00)
[2017-04-20] MEDS: LORazepam Inj 2mg/ml 1ml IV PRN (21:53)
[2017-04-20] MEDS ORDERED: Miralax 17gm pkt ORAL PRN (22:15)
[2017-04-21] VITALS: BP 106/57
[2017-04-21] MEDS: NovoLOG Insulin Flexpen SUBQ SCH ×3 (01:08→12:13)
[2017-04-21 04:00] VITALS: BP 113/56
[2017-04-21] MEDS: LORazepam Inj 2mg/ml 1ml IV PRN (04:27)
[2017-04-21 05:09] LABS: BASOPHILS % (AUTO) 0.8 % (0.0-2.0); EOSINOPHILS % (AUTO) 0.6 % (0.0-3.0); LYMPHOCYTES % (AUTO) 16.8 % (20.0-45.0); MEAN CORPUSCULAR HGB CONC 33.2 G/DL (32.0-36.0); MEAN CORPUSCULAR VOLUME 108 FL (80-99); MEAN PLATELET VOLUME 7.6 FL (6.5-10.1); MONOCYTES % (AUTO) 6.3 % (1.0-10.0); NEUTROPHILS % (AUTO) 75.5 % (45.0-75.0); PLATELET COUNT 111 K/UL (150-450); RED BLOOD COUNT 2.36 M/UL (4.70-6.10); RED CELL DISTRIBUTION WIDTH 17.2 % (11.6-14.8); WHITE BLOOD COUNT 16.2 K/UL (4.8-10.8)
[2017-04-21 05:42] LABS: ANION GAP 17 (5-15); CALCIUM 8.8 mg/dL (8.6-10.2); CARBON DIOXIDE 28 mEQ/L (20-30); CHLORIDE 91 mEQ/L (98-107); CREATININE 7.8 mg/dL (0.7-1.2); HEMOLYSIS 5; POTASSIUM 3.9 mEQ/L (3.4-4.9); SODIUM 136 mEQ/L (135-145)
[2017-04-21] MEDS: Pyridostigmine 60mg tab ORAL SCH (06:00)
[2017-04-21 07:45] LABS: ABG ALLEN TEST POSITIVE; ABG PCO2 81.4 mmHg (35.0-45.0)
[2017-04-21 08:00] VITALS: BP 100/52
[2017-04-21] MEDS: Allopurinol 100mg Tab ORAL SCH ×2 (09:30→10:51)
[2017-04-21] MEDS: PARoxetine 10mg tab ORAL SCH ×2 (09:30→10:51)
--- NOTE | 2017-04-21 10:39 | Pulmonology Progress Note ---
Assessment/Plan Assessment/Plan ASSESSMENT Acute hypoxemic respiratory failure requiring intubation s/p extubation acute hypoxemic hypercapnic respiratory failure Severe sepsis Septic shock 2 to sepsis-resolved Probable PD catheter associated peritonitis encephalopathy (multifactorial) ESRD Severe pulmonary HTN CHF Lactic acidosis Myasthenia gravis, likely progressing Single episode of seizure PAF Pacemaker Hx of I&D umbilical superficial MSSA abscess Anemia of chronic disease Thrombocytopenia profound leukemoid reaction, WBC downtrending possible MDS ( myelodysplastic syndrome), contributing to leukemoid reaction Elevated tumor markers: CEA-10.9; PSA -7.0 likely chronic liver disease functional quadriplegia PLAN OF CARE ISMAEL care Off Levophed Hemodynamically stable s/p extubation O2 to keep sat above 92% Pulmonary toilet Fup with CXR on Saturday ABG today with worsening acidosis and hypercapnia, placed on BiPAP since 04/20, noncompliant titrate BiPAP settings and check ABG in am Abx ID follows Sputum cx +Pseudomonas ( no radiographic evidence of PNA, likely contaminant as per ID) Blood cx negative peritoneal fluid cx preliminary negative, cytology negative for malignancy Cardio follows ECHO with EF 70% and RVSP of 73 c/w severe pulmonary HTN Follow as outpatient with doctor for management of pulmonary HTN HD as per nephro ( at home gets PD dialysis and HD only weekly) Monitor renal parameters, lytes Neuro follows EEG abnormal, c/w mild encephalopathy - as read by neuro Ativan prn Seizure precautions Per neuro likely progressing myasthenia gravis Continue Mestinon Anemia w/up c/w anemia of chronic disease, monitor HH and transfuse prn for Hgb below 8 will keep in ISMAEL, respiratory status worse, need close observation DNR/DNI status discussed with and nephew at the bedside about worsening respiratory status and confirmed DNR/DNI- family does not want intubation case discussed and evaluated by supervising physician Subjective Allergies: Coded Allergies: GERTRUDIS INHIBITORS (Unverified Allergy, Unknown, 04/15/17) LEVOFLOXACIN (Unverified Allergy, Unknown, 04/15/17) PENICILLINS (Verified Allergy, Unknown, 04/15/17) Subjective afebrile, leukocytosis trending down- ABG this am with worsening acidosis and hypercapnia, and nephew at bedside DNR/DNI status Objective Last 24 Hour Vital Signs Date Time Temp Pulse Resp B/P (MAP) Pulse Ox O2 Delivery O2 Flow Rate FiO2 04/21/17 09:52 75 16 98 Full Face 40 04/21/17 08:12 69 21 96 Full Face 40 04/21/17 08:00 97.8 88 19 100/52 97 Nasal Cannula 3.0 04/21/17 07:26 Nasal Cannula 3.0 32 04/21/17 07:25 98 Nasal Cannula 3.0 32 04/21/17 04:00 82 04/21/17 04:00 97.8 82 28 113/56 89 Nasal Cannula 3.0 04/21/17 02:54 77 20 97 Facial 40 04/21/17 00:47 80 22 99 Facial 40 04/21/17 00:00 97.0 72 25 106/57 100 Bi-pap 40 04/21/17 00:00 73 04/20/17 22:38 60 22 99 Facial 40 04/20/17 20:47 76 21 99 Facial 40 04/20/17 20:00 80 04/20/17 20:00 97.2 68 24 105/47 100 Nasal Cannula 3.0 04/20/17 19:15 Nasal Cannula 5.0 04/20/17 19:15 98 Nasal Cannula 5.0 04/20/17 17:10 80 21 97 Facial 40 04/20/17 16:00 82 04/20/17 16:00 97.9 82 18 134/63 100 Nasal Cannula 4.0 04/20/17 12:00 85 04/20/17 12:00 97.7 88 19 119/57 94 Room Air Objective General Appearance: bedridden, chronically ill looking, less awake and alert, male HEENT: normocephalic, atraumatic, anicteric, BiPAP mask 15/5 on Respiratory/Chest: no respiratory distress, decreased breath sounds, RIJ HD catheter Cardiovascular: normal rate, regular rhythm, R femoral CL intact Abdomen: soft, non tender, non distended, peritoneal dialysis catheter Neurologic/Psychiatric: abnormal gait / bedridden , leww awake and alert, poorly responsive Musculoskeletal: atrophy - BLE Microbiology Date/Time Source Procedure Growth Status 04/19/17 10:10 Ascities Fluid Gram Stain - Final Resulted 04/19/17 10:10 Ascities Fluid Body Fluid Culture - Preliminary NO GROWTH AFTER 48 HOURS Resulted Laboratory Tests 04/21/17 04:00: White Blood Count 16.2H, Red Blood Count 2.36L, Hemoglobin 8.5L, Hematocrit 25.5L, Mean Corpuscular Volume 108H, Mean Corpuscular Hemoglobin 36.0H, Mean Corpuscular Hemoglobin Concent 33.2, Red Cell Distribution Width 17.2H, Platelet Count 111L, Mean Platelet Volume 7.6, Neutrophils (%) (Auto) 75.5H, Lymphocytes (%) (Auto) 16.8L, Monocytes (%) (Auto) 6.3, Eosinophils (%) (Auto) 0.6, Basophils (%) (Auto) 0.8, Sodium Level 136, Potassium Level 3.9, Chloride Level 91L, Carbon Dioxide Level 28, Anion Gap 17H, Blood Urea Nitrogen 57H, Creatinine 7.8H, Estimat Glomerular Filtration Rate , Glucose Level 135H, Calcium Level 8.8 04/21/17 07:30: Arterial Blood pH 7.163*L, Arterial Blood Partial Pressure CO2 81.4*H, Arterial Blood Partial Pressure O2 107.6H, Arterial Blood HCO3 28.6H, Arterial Blood Oxygen Saturation 95.6, Arterial Blood Base Excess -1.0, Mike Test Positive Current Medications Medications (Trade) Dose Ordered Sig/Rossana Route PRN Reason Start Time Stop Time Status Last Admin Dose Admin Acetaminophen (Tylenol) 650 mg Q4H PRN ORAL fever 04/20/17 06:15 05/15/17 22:14 Albuterol/ Ipratropium (DuoNeb 0.5-3(2.5)mg/3ml) 3 ml Q4H PRN HHN Shortness of Breath 04/20/17 06:52 04/25/17 06:51 Allopurinol (Zyloprim) 100 mg DAILY ORAL 04/20/17 09:00 05/16/17 08:59 04/20/17 08:34 Amikacin Protocol (Amikacin pharmacy to dose) 1 ea DAILY PRN MISC PHARM 04/20/17 09:00 05/16/17 05:59 Atorvastatin Calcium (Lipitor) 10 mg BEDTIME ORAL 04/20/17 21:00 05/16/17 20:59 04/20/17 21:30 Chlorhexidine Gluconate (Lise-Hex 2%) 1 applic BEDTIME TOPIC 04/20/17 21:00 05/16/17 20:59 04/20/17 21:30 Dextrose (Dextrose 50%) STAT PRN IV Hypoglycemia 04/20/17 07:45 05/16/17 07:34 Insulin Aspart (NovoLOG) EVERY 6 HOURS SUBQ 04/20/17 12:00 05/16/17 11:59 04/21/17 06:58 Lansoprazole (Prevacid) 30 mg Q12HR GT 04/21/17 09:00 05/21/17 08:59 Levothyroxine Sodium (Synthroid) 50 mcg DAILY@0630 ORAL 04/21/17 06:30 05/21/17 06:29 Lorazepam (Ativan 2mg/ml 1ml) 2 mg Q2H PRN IV For Anxiety 04/20/17 06:15 04/24/17 10:14 04/21/17 04:27 Morphine Sulfate (Morphine Sulfate) 4 mg Q4H PRN IVP Severe Pain (Pain Scale 7-10) 04/20/17 06:53 04/27/17 06:52 Ondansetron HCl (Zofran) 4 mg Q6H PRN IVP Nausea & Vomiting 04/20/17 06:53 05/15/17 06:52 Paroxetine HCl (Paxil) 10 mg DAILY ORAL 04/20/17 09:00 05/16/17 10:59 04/20/17 08:33 Polyethylene Glycol (Miralax) 17 gm DAILYPRN PRN ORAL Constipation 04/20/17 22:15 05/15/17 22:14 Pyridostigmine [place] (Mestinon) 60 mg Q8HR ORAL 04/20/17 14:00 05/16/17 13:59 04/20/17 21:30 Vancomycin HCl (Vanco rx to dose) 1 ea DAILY PRN MISC RX DOSING 04/20/17 09:00 05/16/17 08:59 Chidi (Kristyn)Arianne NP Apr 21, 2017 10:39
--- NOTE | 2017-04-21 11:42 | General Progress Note ---
Assessment/Plan Status Narrative WBCs lowering Assessment/Plan ESRD : On Hemo and Peritoneal dialysis Septic shock , Low BP stablizing PAF S/p I and D infra umbilcal superficial MSSA abscess. CHF, PHT. 90's hypokinesis Anemia. MDS? Plan: Hemodynamically stable HD done04/19 next 04/22 Optimize cardiac and Pulm status, weaning as possible monitor renal parameters per orders Subjective ROS Limited/Unobtainable: No Constitutional: Reports: malaise Allergies: Coded Allergies: GERTRUDIS INHIBITORS (Unverified Allergy, Unknown, 04/15/17) LEVOFLOXACIN (Unverified Allergy, Unknown, 04/15/17) PENICILLINS (Verified Allergy, Unknown, 04/15/17) Objective Last 24 Hour Vital Signs Date Time Temp Pulse Resp B/P (MAP) Pulse Ox O2 Delivery O2 Flow Rate FiO2 04/21/17 10:38 60 20 99 Full Face 40 04/21/17 09:52 75 16 98 Full Face 40 04/21/17 08:12 69 21 96 Full Face 40 04/21/17 08:00 97.8 88 19 100/52 97 Nasal Cannula 3.0 04/21/17 07:26 Nasal Cannula 3.0 32 04/21/17 07:25 98 Nasal Cannula 3.0 32 04/21/17 04:00 82 04/21/17 04:00 97.8 82 28 113/56 89 Nasal Cannula 3.0 04/21/17 02:54 77 20 97 Facial 40 04/21/17 00:47 80 22 99 Facial 40 04/21/17 00:00 97.0 72 25 106/57 100 Bi-pap 40 04/21/17 00:00 73 04/20/17 22:38 60 22 99 Facial 40 04/20/17 20:47 76 21 99 Facial 40 04/20/17 20:00 80 04/20/17 20:00 97.2 68 24 105/47 100 Nasal Cannula 3.0 04/20/17 19:15 Nasal Cannula 5.0 04/20/17 19:15 98 Nasal Cannula 5.0 04/20/17 17:10 80 21 97 Facial 40 04/20/17 16:00 82 04/20/17 16:00 97.9 82 18 134/63 100 Nasal Cannula 4.0 04/20/17 12:00 85 04/20/17 12:00 97.7 88 19 119/57 94 Room Air Laboratory Tests 04/21/17 04:00: White Blood Count 16.2H, Red Blood Count 2.36L, Hemoglobin 8.5L, Hematocrit 25.5L, Mean Corpuscular Volume 108H, Mean Corpuscular Hemoglobin 36.0H, Mean Corpuscular Hemoglobin Concent 33.2, Red Cell Distribution Width 17.2H, Platelet Count 111L, Mean Platelet Volume 7.6, Neutrophils (%) (Auto) 75.5H, Lymphocytes (%) (Auto) 16.8L, Monocytes (%) (Auto) 6.3, Eosinophils (%) (Auto) 0.6, Basophils (%) (Auto) 0.8, Sodium Level 136, Potassium Level 3.9, Chloride Level 91L, Carbon Dioxide Level 28, Anion Gap 17H, Blood Urea Nitrogen 57H, Creatinine 7.8H, Estimat Glomerular Filtration Rate , Glucose Level 135H, Calcium Level 8.8 04/21/17 07:30: Arterial Blood pH 7.163*L, Arterial Blood Partial Pressure CO2 81.4*H, Arterial Blood Partial Pressure O2 107.6H, Arterial Blood HCO3 28.6H, Arterial Blood Oxygen Saturation 95.6, Arterial Blood Base Excess -1.0, Mike Test Positive Height (Feet): 5 Height (Inches): 8.00 Weight (Pounds): 180 General Appearance: mild distress Cardiovascular: arrhythmia Respiratory/Chest: decreased breath sounds Abdomen: distended LORENZA SANTOS Apr 21, 2017 11:42
[2017-04-21 12:00] VITALS: BP 95/50
[2017-04-21] MEDS ORDERED: Vanco pharmacy to dose MISC (12:23)
[2017-04-21] MEDS ORDERED: ACETAMINOPHEN325 M1 ORAL (12:23)
[2017-04-21] MEDS ORDERED: MIRALAX17 G2 ORAL (12:23)
[2017-04-21] MEDS ORDERED: ALLOPURINOL100 M1 ORAL (12:23)
[2017-04-21] MEDS ORDERED: LANSOPRAZOLE30 MG GT (12:23)
[2017-04-21] MEDS ORDERED: PAROXETINE HCL10 MG ORAL (12:23)
[2017-04-21] MEDS ORDERED: Amikacin Rx to dose MISC (12:23)
[2017-04-21] MEDS ORDERED: DUONEB 0.5-3(2.53 ML HHN (12:23)
[2017-04-21] MEDS ORDERED: PYRIDOSTIGMINE60 MG ORAL (12:23)
[2017-04-21] MEDS ORDERED: MORPHINE SU4 MG/1 ML IVP (12:23)
--- NOTE | 2017-04-21 12:49 | Cardiology Progress Note ---
Assessment/Plan Problem List: (1) Severe sepsis (2) ESRD (end stage renal disease) on dialysis (3) H/O pulmonary hypertension (4) Myasthenia gravis (5) Acute respiratory failure (6) Septic shock (7) Hypoxia Status: stable, progressing Status Narrative Mr Wilcox appears in AF, intermittent atrial undersensing - atr pacing. BP stable. He is intermittently on bipap Assessment/Plan Complete iv antibiotics course. Severe pulmonary hypertension - restart Cialis AF - controlled v rates. ? anticoagulation. Will hold for now, as pt anemic and w/ hx of gi bleed earlier this year. Pt being transferred to [facility] today. D/w Dr. Araujo yesterday. Subjective ROS Limited/Unobtainable: Yes Subjective Cardiology for Dr. Bright Events noted. Pt sedated, on bipap. Objective Last 24 Hour Vital Signs Date Time Temp Pulse Resp B/P (MAP) Pulse Ox O2 Delivery O2 Flow Rate FiO2 04/21/17 10:38 60 20 99 Full Face 40 04/21/17 09:52 75 16 98 Full Face 40 04/21/17 08:12 69 21 96 Full Face 40 04/21/17 08:00 97.8 88 19 100/52 97 Nasal Cannula 3.0 04/21/17 07:26 Nasal Cannula 3.0 32 04/21/17 07:25 98 Nasal Cannula 3.0 32 04/21/17 04:00 82 04/21/17 04:00 97.8 82 28 113/56 89 Nasal Cannula 3.0 04/21/17 02:54 77 20 97 Facial 40 04/21/17 00:47 80 22 99 Facial 40 04/21/17 00:00 97.0 72 25 106/57 100 Bi-pap 40 04/21/17 00:00 73 04/20/17 22:38 60 22 99 Facial 40 04/20/17 20:47 76 21 99 Facial 40 04/20/17 20:00 80 04/20/17 20:00 97.2 68 24 105/47 100 Nasal Cannula 3.0 04/20/17 19:15 Nasal Cannula 5.0 04/20/17 19:15 98 Nasal Cannula 5.0 04/20/17 17:10 80 21 97 Facial 40 04/20/17 16:00 82 04/20/17 16:00 97.9 82 18 134/63 100 Nasal Cannula 4.0 General Appearance: WD/WN, lethargic EENT: PERRL/EOMI Neck: supple, no JVD, other - R Sc HD catheter Rhythm: Afib Cardiovascular: normal rate, irregularly irregular Respiratory/Chest: other - scattered rhonchi bilat Abdomen: non tender, soft, other - + PD catheter Extremities: non-tender, no swelling Laboratory Tests Test 04/21/17 04:00 04/21/17 07:30 White Blood Count 16.2 K/UL (4.8-10.8) H Red Blood Count 2.36 M/UL (4.70-6.10) L Hemoglobin 8.5 G/DL (14.2-18.0) L Hematocrit 25.5 % (42.0-52.0) L Mean Corpuscular Volume 108 FL (80-99) H Mean Corpuscular Hemoglobin 36.0 PG (27.0-31.0) H Mean Corpuscular Hemoglobin Concent 33.2 G/DL (32.0-36.0) Red Cell Distribution Width 17.2 % (11.6-14.8) H Platelet Count 111 K/UL (150-450) L Mean Platelet Volume 7.6 FL (6.5-10.1) Neutrophils (%) (Auto) 75.5 % (45.0-75.0) H Lymphocytes (%) (Auto) 16.8 % (20.0-45.0) L Monocytes (%) (Auto) 6.3 % (1.0-10.0) Eosinophils (%) (Auto) 0.6 % (0.0-3.0) Basophils (%) (Auto) 0.8 % (0.0-2.0) Sodium Level 136 mEQ/L (135-145) Potassium Level 3.9 mEQ/L (3.4-4.9) Chloride Level 91 mEQ/L (98-107) L Carbon Dioxide Level 28 mEQ/L (20-30) Anion Gap 17 (5-15) H Blood Urea Nitrogen 57 mg/dL (7-23) H Creatinine 7.8 mg/dL (0.7-1.2) H Estimat Glomerular Filtration Rate mL/min (>60) Glucose Level 135 mg/dL (74-106) H Calcium Level 8.8 mg/dL (8.6-10.2) Arterial Blood pH 7.163 (7.350-7.450) Arterial Blood Partial Pressure CO2 81.4 mmHg (35.0-45.0) *H Arterial Blood Partial Pressure O2 107.6 mmHg (75.0-100.0) H Arterial Blood HCO3 28.6 mmol/L (22.0-26.0) H Arterial Blood Oxygen Saturation 95.6 % (92.0-98.0) Arterial Blood Base Excess -1.0 Mike Test Positive Microbiology Date/Time Source Procedure Growth Status 04/19/17 10:10 Ascities Fluid Gram Stain - Final Resulted 04/19/17 10:10 Ascities Fluid Body Fluid Culture - Preliminary NO GROWTH AFTER 48 HOURS Resulted JAYME CHAVEZ Apr 21, 2017 12:49
[2017-04-21] MEDS ORDERED: NS 275ml ONE (13:25)
[2017-04-21] MEDS ORDERED: Tubing IV Secondary IV ONE (13:25)
--- NOTE | 2017-04-21 23:19 | General Progress Note ---
Assessment/Plan Status: deteriorating Assessment/Plan # Anemia 2/2 chronic disease --> follow up with Dr. Shah if pt discharged --> monitor counts --> Blood transfusion if hgb falls below 7.5 or symptomatic # Severe sepsis with leukocytosis --> id following, r/o intraabdominal abscess # Thrombocytopenia 2/2 chronic liver disease --> abdominal US reviewed # ARF # ESRD Subjective Date patient seen: Apr 20, 2017 ROS Limited/Unobtainable: No Constitutional: Reports: weakness HEENT: Reports: no symptoms Respiratory: Reports: cough Genitourinary: Reports: no symptoms Neurologic/Psychiatric: Reports: weakness Endocrine: Reports: no symptoms Allergies: Coded Allergies: GERTRUDIS INHIBITORS (Unverified Allergy, Unknown, 04/15/17) LEVOFLOXACIN (Unverified Allergy, Unknown, 04/15/17) PENICILLINS (Verified Allergy, Unknown, 04/15/17) Subjective Patient confused. S/P extubation. Was coughing. Debility. Objective Last 24 Hour Vital Signs Date Time Temp Pulse Resp B/P (MAP) Pulse Ox O2 Delivery O2 Flow Rate FiO2 04/21/17 12:43 80 19 100 Facial 40 04/21/17 12:00 97.5 89 18 95/50 98 Nasal Cannula 04/21/17 10:38 60 20 99 Full Face 40 04/21/17 09:52 75 16 98 Full Face 40 04/21/17 08:12 69 21 96 Full Face 40 04/21/17 08:00 97.8 88 19 100/52 97 Nasal Cannula 3.0 04/21/17 07:49 78 04/21/17 07:26 Nasal Cannula 3.0 32 04/21/17 07:25 98 Nasal Cannula 3.0 32 04/21/17 04:00 82 04/21/17 04:00 97.8 82 28 113/56 89 Nasal Cannula 3.0 04/21/17 02:54 77 20 97 Facial 40 04/21/17 00:47 80 22 99 Facial 40 04/21/17 00:00 97.0 72 25 106/57 100 Bi-pap 40 04/21/17 00:00 73 04/20/17 22:38 60 22 99 Facial 40 04/20/17 20:47 76 21 99 Facial 40 04/20/17 20:00 80 04/20/17 20:00 97.2 68 24 105/47 100 Nasal Cannula 3.0 04/20/17 19:15 Nasal Cannula 5.0 04/20/17 19:15 98 Nasal Cannula 5.0 04/20/17 17:10 80 21 97 Facial 40 04/20/17 16:00 82 04/20/17 16:00 97.9 82 18 134/63 100 Nasal Cannula 4.0 04/20/17 12:00 85 04/20/17 12:00 97.7 88 19 119/57 94 Room Air 04/20/17 10:18 76 21 97 Facial 40 04/20/17 08:45 83 04/20/17 08:00 97.2 86 19 135/67 98 Nasal Cannula 5.0 04/20/17 08:00 Nasal Cannula 5.0 04/20/17 08:00 98 Nasal Cannula 5.0 04/20/17 06:00 75 17 143/63 100 Bi-pap 40 04/20/17 05:10 81 23 100 Facial 40 04/20/17 05:00 76 17 122/55 100 Bi-pap 40 04/20/17 04:00 74 04/20/17 04:00 40 04/20/17 04:00 97.6 74 19 91/52 100 Bi-pap 40 04/20/17 03:06 84 20 98 Facial 40 04/20/17 03:00 76 19 140/64 100 Bi-pap 40 04/20/17 02:00 82 22 107/50 100 Bi-pap 40 04/20/17 01:07 80 19 95 Facial 40 04/20/17 01:00 81 22 123/60 99 Nasal Cannula 4.0 04/20/17 00:00 97.2 75 21 98/45 100 Bi-pap 40 04/20/17 00:00 75 04/20/17 00:00 40 04/19/17 23:40 97.2 Last 24 Hour Vital Signs Date Time Temp Pulse Resp B/P (MAP) Pulse Ox O2 Delivery O2 Flow Rate FiO2 04/21/17 12:43 80 19 100 Facial 40 04/21/17 12:00 97.5 89 18 95/50 98 Nasal Cannula 04/21/17 10:38 60 20 99 Full Face 40 04/21/17 09:52 75 16 98 Full Face 40 04/21/17 08:12 69 21 96 Full Face 40 04/21/17 08:00 97.8 88 19 100/52 97 Nasal Cannula 3.0 04/21/17 07:49 78 04/21/17 07:26 Nasal Cannula 3.0 32 04/21/17 07:25 98 Nasal Cannula 3.0 32 04/21/17 04:00 82 04/21/17 04:00 97.8 82 28 113/56 89 Nasal Cannula 3.0 04/21/17 02:54 77 20 97 Facial 40 04/21/17 00:47 80 22 99 Facial 40 04/21/17 00:00 97.0 72 25 106/57 100 Bi-pap 40 04/21/17 00:00 73 Intake and Output 04/21/17 04/22/17 19:00 07:00 Intake Total 80 ml Balance 80 ml Intake Oral 80 ml Labs Test 04/20/17 05:00 04/20/17 09:15 04/21/17 04:00 04/21/17 07:30 White Blood Count 21.5 K/UL (4.8-10.8) 16.2 K/UL (4.8-10.8) Red Blood Count 2.37 M/UL (4.70-6.10) 2.36 M/UL (4.70-6.10) Hemoglobin 8.8 G/DL (14.2-18.0) 8.5 G/DL (14.2-18.0) Hematocrit 25.7 % (42.0-52.0) 25.5 % (42.0-52.0) Mean Corpuscular Volume 108 FL (80-99) 108 FL (80-99) Mean Corpuscular Hemoglobin 37.2 PG (27.0-31.0) 36.0 PG (27.0-31.0) Mean Corpuscular Hemoglobin Concent 34.4 G/DL (32.0-36.0) 33.2 G/DL (32.0-36.0) Red Cell Distribution Width 17.4 % (11.6-14.8) 17.2 % (11.6-14.8) Platelet Count 100 K/UL (150-450) 111 K/UL (150-450) Mean Platelet Volume 7.1 FL (6.5-10.1) 7.6 FL (6.5-10.1) Neutrophils (%) (Auto) % (45.0-75.0) 75.5 % (45.0-75.0) Lymphocytes (%) (Auto) % (20.0-45.0) 16.8 % (20.0-45.0) Monocytes (%) (Auto) % (1.0-10.0) 6.3 % (1.0-10.0) Eosinophils (%) (Auto) % (0.0-3.0) 0.6 % (0.0-3.0) Basophils (%) (Auto) % (0.0-2.0) 0.8 % (0.0-2.0) Differential Total Cells Counted 100 Neutrophils % (Manual) 78 % (45-75) Lymphocytes % (Manual) 7 % (20-45) Monocytes % (Manual) 9 % (1-10) Eosinophils % (Manual) 1 % (0-3) Basophils % (Manual) 0 % (0-2) Band Neutrophils 5 % (0-8) Platelet Estimate Decreased Platelet Morphology Normal Polychromasia Occasional Hypochromasia 1+ Basophilic Stippling Occasional Anisocytosis 1+ Macrocytosis 1+ Sodium Level 141 mEQ/L (135-145) 136 mEQ/L (135-145) Potassium Level 3.7 mEQ/L (3.4-4.9) 3.9 mEQ/L (3.4-4.9) Chloride Level 96 mEQ/L (98-107) 91 mEQ/L (98-107) Carbon Dioxide Level 29 mEQ/L (20-30) 28 mEQ/L (20-30) Anion Gap 16 (5-15) 17 (5-15) Blood Urea Nitrogen 48 mg/dL (7-23) 57 mg/dL (7-23) Creatinine 6.4 mg/dL (0.7-1.2) 7.8 mg/dL (0.7-1.2) Estimat Glomerular Filtration Rate mL/min (>60) mL/min (>60) Glucose Level 73 mg/dL (74-106) 135 mg/dL (74-106) Calcium Level 8.8 mg/dL (8.6-10.2) 8.8 mg/dL (8.6-10.2) Phosphorus Level 4.2 mg/dL (2.5-4.8) Magnesium Level 1.9 mg/dL (1.7-2.5) Total Bilirubin 0.3 mg/dL (0.0-1.2) Aspartate Amino Transf (AST/SGOT) 22 U/L (5-40) Alanine Aminotransferase (ALT/SGPT) 12 U/L (3-41) Alkaline Phosphatase 179 U/L (40-129) Total Protein 6.0 g/dL (6.6-8.7) Albumin 2.7 g/dL (3.5-5.2) Globulin 3.3 g/dL Albumin/Globulin Ratio 0.8 (1.0-2.7) Arterial Blood pH 7.260 (7.350-7.450) 7.163 (7.350-7.450) Arterial Blood Partial Pressure CO2 64.2 mmHg (35.0-45.0) 81.4 mmHg (35.0-45.0) Arterial Blood Partial Pressure O2 190.6 mmHg (75.0-100.0) 107.6 mmHg (75.0-100.0) Arterial Blood HCO3 28.3 mmol/L (22.0-26.0) 28.6 mmol/L (22.0-26.0) Arterial Blood Oxygen Saturation 97.5 % (92.0-98.0) 95.6 % (92.0-98.0) Arterial Blood Base Excess 0.5 -1.0 Mike Test Positive Positive Laboratory Tests 04/21/17 04:00: White Blood Count 16.2H, Red Blood Count 2.36L, Hemoglobin 8.5L, Hematocrit 25.5L, Mean Corpuscular Volume 108H, Mean Corpuscular Hemoglobin 36.0H, Mean Corpuscular Hemoglobin Concent 33.2, Red Cell Distribution Width 17.2H, Platelet Count 111L, Mean Platelet Volume 7.6, Neutrophils (%) (Auto) 75.5H, Lymphocytes (%) (Auto) 16.8L, Monocytes (%) (Auto) 6.3, Eosinophils (%) (Auto) 0.6, Basophils (%) (Auto) 0.8, Sodium Level 136, Potassium Level 3.9, Chloride Level 91L, Carbon Dioxide Level 28, Anion Gap 17H, Blood Urea Nitrogen 57H, Creatinine 7.8H, Estimat Glomerular Filtration Rate , Glucose Level 135H, Calcium Level 8.8 04/21/17 07:30: Arterial Blood pH 7.163*L, Arterial Blood Partial Pressure CO2 81.4*H, Arterial Blood Partial Pressure O2 107.6H, Arterial Blood HCO3 28.6H, Arterial Blood Oxygen Saturation 95.6, Arterial Blood Base Excess -1.0, Mike Test Positive Height (Feet): 5 Height (Inches): 8.00 Weight (Pounds): 180 General Appearance: moderate distress EENT: other Cardiovascular: normal rate HARISH AKBAR Apr 21, 2017 23:19
--- NOTE | 2017-04-21 23:21 | General Progress Note ---
Assessment/Plan Status: deteriorating Assessment/Plan # Anemia 2/2 chronic disease --> follow up with Dr. Shah if pt discharged --> monitor counts --> Blood transfusion if hgb falls below 7.5 or symptomatic # Severe sepsis with leukocytosis --> id following, r/o intraabdominal abscess # Thrombocytopenia 2/2 chronic liver disease --> abdominal US reviewed # ARF # ESRD Subjective Date patient seen: Apr 21, 2017 ROS Limited/Unobtainable: No Constitutional: Reports: weakness HEENT: Reports: other Cardiovascular: Reports: chest pain Respiratory: Reports: cough Gastrointestinal/Abdominal: Reports: poor appetite Genitourinary: Reports: no symptoms Neurologic/Psychiatric: Reports: weakness, other Hematologic/Lymphatic: Reports: anemia Allergies: Coded Allergies: GERTRUDIS INHIBITORS (Unverified Allergy, Unknown, 04/15/17) LEVOFLOXACIN (Unverified Allergy, Unknown, 04/15/17) PENICILLINS (Verified Allergy, Unknown, 04/15/17) Subjective Patient confused. S/P extubation. Was coughing. Debility. Objective Last 24 Hour Vital Signs Date Time Temp Pulse Resp B/P (MAP) Pulse Ox O2 Delivery O2 Flow Rate FiO2 04/21/17 12:43 80 19 100 Facial 40 04/21/17 12:00 97.5 89 18 95/50 98 Nasal Cannula 04/21/17 10:38 60 20 99 Full Face 40 04/21/17 09:52 75 16 98 Full Face 40 04/21/17 08:12 69 21 96 Full Face 40 04/21/17 08:00 97.8 88 19 100/52 97 Nasal Cannula 3.0 04/21/17 07:49 78 04/21/17 07:26 Nasal Cannula 3.0 32 04/21/17 07:25 98 Nasal Cannula 3.0 32 04/21/17 04:00 82 04/21/17 04:00 97.8 82 28 113/56 89 Nasal Cannula 3.0 04/21/17 02:54 77 20 97 Facial 40 04/21/17 00:47 80 22 99 Facial 40 04/21/17 00:00 97.0 72 25 106/57 100 Bi-pap 40 04/21/17 00:00 73 Intake and Output 04/21/17 04/22/17 19:00 07:00 Intake Total 80 ml Balance 80 ml Intake Oral 80 ml Laboratory Tests 04/21/17 04:00: White Blood Count 16.2H, Red Blood Count 2.36L, Hemoglobin 8.5L, Hematocrit 25.5L, Mean Corpuscular Volume 108H, Mean Corpuscular Hemoglobin 36.0H, Mean Corpuscular Hemoglobin Concent 33.2, Red Cell Distribution Width 17.2H, Platelet Count 111L, Mean Platelet Volume 7.6, Neutrophils (%) (Auto) 75.5H, Lymphocytes (%) (Auto) 16.8L, Monocytes (%) (Auto) 6.3, Eosinophils (%) (Auto) 0.6, Basophils (%) (Auto) 0.8, Sodium Level 136, Potassium Level 3.9, Chloride Level 91L, Carbon Dioxide Level 28, Anion Gap 17H, Blood Urea Nitrogen 57H, Creatinine 7.8H, Estimat Glomerular Filtration Rate , Glucose Level 135H, Calcium Level 8.8 04/21/17 07:30: Arterial Blood pH 7.163*L, Arterial Blood Partial Pressure CO2 81.4*H, Arterial Blood Partial Pressure O2 107.6H, Arterial Blood HCO3 28.6H, Arterial Blood Oxygen Saturation 95.6, Arterial Blood Base Excess -1.0, Mike Test Positive Height (Feet): 5 Height (Inches): 8.00 Weight (Pounds): 180 General Appearance: confused, moderate distress, severe distress Respiratory/Chest: decreased breath sounds Extremities: normal inspection HARISH AKBAR Apr 21, 2017 23:21
--- NOTE | 2017-04-23 11:47 | Discharge Summary ---
Discharge Summary Hospital Course Date of Admission Apr 15, 2017 at 20:57 Date of Discharge Apr 21, 2017 at 13:26 Admitting Diagnosis hypoxia/hypotension HPI Milo Wilcox is a 82 year old male who was admitted on Apr 15, 2017 at 20:57 for Hypoxia/Hypotension Hospital Course dc summary #[id number] Discharge Medications New Medications: Acetaminophen* (Acetaminophen 325MG Tablet*) 325 Mg Tablet 650 MG ORAL Q4H PRN, #30 TAB Allopurinol* (Allopurinol*) 100 Mg Tablet 100 MG ORAL DAILY, #30 TAB Ipratropium/Albuterol Sulfate (DuoNeb 0.5-3(2.5)mg/3ml) 3 Ml Ampul.neb 3 ML HHN Q4H PRN for 30 Days, EA Lansoprazole* (Lansoprazole*) 30 Mg Capsule.dr 30 MG GT Q12HR, #30 CAP Morphine Sulfate (Morphine Sulfate) 4 Mg/1 Ml Syringe 4 MG IVP Q4H PRN, #5 SYR Paroxetine Hcl* (Paxil*) 10 Mg Tablet 10 MG ORAL DAILY, #30 TAB Polyethylene Glycol 3350* (Miralax*) 17 Gm Powd.pack 17 GM ORAL DAILYPRN PRN for 30 Days, PACK Pyridostigmine [place]* (Mestinon*) 60 Mg Tablet 60 MG ORAL Q8HR, #30 TAB [Amikacin Rx to dose] () 1 EA MISC 1 EA MISC DAILY PRN, #5 [Vanco pharmacy to dose] () 1 EA MISC 1 EA MISC DAILY PRN, #5 Continued Medications: Atorvastatin Calcium* (Atorvastatin Calcium*) 20 Mg Tablet 10 MG ORAL BEDTIME, TAB Insulin Aspart* (Novolog*) 100 Unit/1 Ml Insuln.pen 0 SUBQ, #1 EA 0 Refills Levothyroxine Sodium* (Synthroid*) 75 Mcg Tablet 50 MCG ORAL DAILY, TAB Take in the morning on an empty stomach, at least 30 minutes before food. Discontinued Medications: Allopurinol* (Allopurinol*) 300 Mg Tablet 300 MG ORAL DAILY, TAB Pyridostigmine [place]* (Mestinon*) 60 Mg Tablet 30 MG ORAL BID, #30 TAB 0 Refills Discharge Discharge Disposition Patient was discharged to Acute Care Facility(02[facility] Discharge Diagnoses: Chidi (Vanchtein),Arianne MCKNIGHT Apr 23, 2017 11:47
--- NOTE | 2017-04-24 14:03 | Discharge Summary 2 SIG ---
DATE OF ADMISSION: 04/15/2017 DATE OF DISCHARGE: 04/21/2017 REASON FOR ADMISSION: The patient is an 82-year-old male with multiple past medical history including end-stage renal disease, on hemodialysis and peritoneal dialysis, pulmonary hypertension, pacemaker, myasthenia gravis, CHF, atrial fibrillation/flutter, BPH, CPAP, presented to emergency room for evaluation due to shortness of breath and hypertension. Blood pressure was 84/39 upon admission. No fever. WBC 27.2, hemoglobin 11.4, hematocrit 34.3. Lactic acid 4.0. BUN 34 and creatinine 7.0, consistent with end-stage renal disease. Chest x-ray revealed no acute intracranial pathology. In the emergency department, the patient was placed on 5 liters of nasal cannula, saturation 98%, and required urgent intubation. Central line was placed in anticipation for pressor. Fluid bolus was given. Blood pressure did not respond to fluid bolus. The patient was started on Levophed and transferred to ICU for further management. ADMITTING DIAGNOSES: 1. Septic shock secondary to sepsis. 2. Acute hypoxemic respiratory failure, requiring intubation. 3. End-stage renal disease, on hemodialysis. 4. Hypertension. 5. Pulmonary hypertension. 6. Myasthenia gravis. HOSPITAL COURSE: The patient was admitted to ICU. Ventilator support and pulmonary toilet provided. The patient will follow up with daily ABG and chest x-ray. Infectious Disease consult was requested. The patient was started on empiric antibiotics. Culture bui, blood cultures were negative. Sputum culture revealed Pseudomonas aeruginosa. Peritoneal fluid culture was negative. Cytology negative for malignancy. Per Infectious Disease doctor, no radiographic evidence of pneumonia. Sputum culture positive, it is likely contaminant as per ID. The patient continued on empiric antibiotic due to the persistent leukocytosis. The patient was able to be extubated. After extubation, placed on 100% nonrebreathing mask and after extubation placed on supplemental oxygen. ABG after extubation continued to show retained CO2. However, on 04/20/2017, the patient was very acidotic with pH of 7.26 and pCO2 64. The patient was DNR/DNI status. On day of the transfer, pH down to 7.16, pCO2 81. Discussed with the family again that with the finding like that, the patient would be intubated if he would not be DNR/DNI status. Family at the bedside, and the nephew, they both confirmed DNR/DNI status. They do not want the patient to be intubated again. The patient was on the BiPAP most of the time, off BiPAP only for feeding. Mental status worsening, likely could also be contributing due to the retained CO2. The patient able to be weaned of the Levophed. Hemodynamically stable. Antibiotic regimen was directed by Infectious Disease, who gave recommendation regarding further antibiotic treatment. Cardiology closely followed. Echocardiogram revealed preserved ejection fraction of 70%. Left ventricular systolic pressure was 73, consistent with severe pulmonary hypertension. Restarted Cialis for pulmonary hypertension since blood pressure was . The patient follows up as an outpatient with doctor for management of severe pulmonary hypertension. Hemodialysis was done as per Nephrology. Since at home, the patient gets peritoneal dialysis, hemodialysis only weekly. The patient needs peritoneal dialysis and that the patient was placed on transfer list to [facility] [place] where the patient usually being admitted. Renal parameters and electrolytes were closely monitored and corrected as needed. Neurology closely followed. EEG abnormal, consistent with mild encephalopathy as read by neurologist. Seizure precaution maintained. The patient had a single episode of seizure, Ativan p.r.n. Did not start any antiseizure medication for a single episode of seizure. Mestinon was continued for myasthenia gravis. Per Neurology, the patient likely has progressed the myasthenia gravis. Anemia workup was consistent with anemia of chronic disease. Hemoglobin and hematocrit were closely monitored and transfuse if hemoglobin below 8. Thrombocytopenia secondary to likely chronic liver disease since imaging of abdominal ultrasound revealed finding suspicious for chronic liver disease and echogenic kidney, consistent with a medical renal disease. The patient at some point exhibited leukemoid reaction with WBC from initial 27.2, rising to 41.9 on 04/19/2017, which is currently downgraded and WBC on the day of transfer was 16.2. According to specialist, the patient possibly has myelodysplastic syndrome. As the patient gets better and family desires, he can have further workup for myelodysplastic syndrome, which could have contributed to leukemoid reaction. Bowel regimen provided. Pain management provided. The patient was closely monitored. Overall prognosis is poor. Transfer was arranged to [facility] [place]. Report was given to Dr. Araujo, admitting doctor. The patient was stable for transfer to [facility] [place] via [facility] ambulance and with BiPAP on. DISCHARGE DIAGNOSES: 1. Septic shock secondary to sepsis resolved. Severe sepsis. Acute hypoxemic respiratory failure, requiring intubation, status post extubation, acute hypoxemic hypercapnic respiratory failure, requiring BiPAP (after extubation). 2. Probable peritoneal dialysis catheter associated peritonitis. 3. Encephalopathy (multifactorial). 4. End-stage renal disease. 5. Severe pulmonary hypertension. 6. Congestive heart failure. 7. Lactic acidosis. 8. Myasthenia gravis, likely progressing. 9. Single episode of seizure. 10. Paroxysmal atrial fibrillation. 11. Pacemaker. 12. History of incision and drainage umbilical superficial methicillin-susceptible staphylococcus aureus abscess. 13. Anemia of chronic disease. 14. Thrombocytopenia. 15. leukemoid reaction, WBC downtrending. 16. Possible myelodysplastic syndrome, contributing to leukemoid reaction. 17. Elevated tumor markers, CEA 10.9 and PSA 7.0. 18. Likely chronic liver disease. 19. Functional quadriplegia. DISCHARGE MEDICATIONS: See medication reconciliation list. DISCHARGE INSTRUCTIONS: The patient was transferred to [facility] [place] for further management. Follow up with primary medical doctor and specialist at the admitting hospital. Leola Craven M.D. I have been assigned to dictate discharge summary on this account and I was not involved in the patient's management. Arianne Murillo (vanchtein) N.PJaswinder DR: Drew JOB#: [id number] CC:
== END 2017-04-21 13:26 | disposition short-term general hospital (02) | DRG 871 ==
LOC: EDBD 19:37 → EMR 19:49 → ICU 20:57 → EDBEDREQ 22:57 → 2W 04-20 06:54
PROC: 06HM33Z Insertion of Infusion Device into Right Femoral Vein, Percutaneous Approach (ICD-10-PCS; principal; 2017-04-16)
PROC: 0BH17EZ Insertion of Endotracheal Airway into Trachea, Via Natural or Artificial Opening (ICD-10-PCS; principal; 2017-04-16)
PROC: 5A1945Z Respiratory Ventilation, 24-96 Consecutive Hours (ICD-10-PCS; principal; 2017-04-16)
PROC: 5A1D60Z (ICD-10-PCS; 2017-04-17)
PROC: 5A09457 Assistance with Respiratory Ventilation, 24-96 Consecutive Hours, Continuous Positive Airway Pressure (ICD-10-PCS; 2017-04-18)
DX: A41.9 Sepsis, unspecified organism (principal); R65.21 Severe sepsis with septic shock; I13.2 Hypertensive heart and chronic kidney disease with heart failure and with stage 5 chronic kidney disease, or end stage renal disease; G93.40 Encephalopathy, unspecified; K65.8 Other peritonitis; N18.6 End stage renal disease; J96.01 Acute respiratory failure with hypoxia; D69.59 Other secondary thrombocytopenia; J96.02 Acute respiratory failure with hypercapnia; R53.2 Functional quadriplegia; I50.9 Heart failure, unspecified; Z99.2 Dependence on renal dialysis; G70.00 Myasthenia gravis without (acute) exacerbation; I27.2 Other secondary pulmonary hypertension; Z95.0 Presence of cardiac pacemaker; Z88.1 Allergy status to other antibiotic agents; Z88.8 Allergy status to other drugs, medicaments and biological substances; N40.0 Benign prostatic hyperplasia without lower urinary tract symptoms; Z66 Do not resuscitate; R56.9 Unspecified convulsions; D63.8 Anemia in other chronic diseases classified elsewhere; I48.0 Paroxysmal atrial fibrillation; D72.823 Leukemoid reaction; D46.9 Myelodysplastic syndrome, unspecified; R97.0 Elevated carcinoembryonic antigen [CEA]; R97.20 Elevated prostate specific antigen [PSA]; K76.9 Liver disease, unspecified; K59.00 Constipation, unspecified
CPT/HCPCS: 31500; 36415; 36600; 71010; 74000; 76700; 80048; 80053; 80061; 80150; 80202; 82248; 82378; 82550; 82607; 82728; 82746; 82803; 82962; 82977; 83010; 83540; 83550; 83605; 83615; 83690; 83735; 83880; 83921; 84100; 84153; 84443; 84478; 84484; 84550; 85007; 85025; 85044; 85384; 85610; 85730; 86140; 86703; 86705; 86709; 86803; 87040; 87070; 87081; 87181; 87205; 87340; 89051; 93005; 93306; 94002; 94003; 94640; 94660; 94664; 94760; 95819; 99292; J1815; J2250; J2405